=== PATIENT | male | born 1935 | race Caucasian/White ===

== ENCOUNTER → 2017-01-09 | Outpatient (CLI) | payer OTHER ==
[~2017-01-09] MED LIST: ACET-1311 PO; AMLO-114 PO; ATOR-22 PO; CHOL1000 PO; FAMO20TA11 PO; FLUT0.15; LISI-725 PO; METO1TAB69 PO; MIRA100T PO; MULT-506 PO
[2017-01-09 17:40] LABS: BLOOD UREA NITROGEN 34 mg/dl (7-18); GLUCOSE 98 mg/dl (70-99)
[2017-01-09 17:41] LABS: ALT/SGPT 28 U/L (12-78); BUN/CREATININE RATIO 30.5 (10-20); CALCIUM 9.4 mg/dl (8.5-10.1); CARBON DIOXIDE 29 mmol/L (21-32); CHLORIDE 106 mmol/L (98-107); CHOLESTEROL 139 mg/dl (0-200); POTASSIUM 4.3 mmol/L (3.5-5.1); SODIUM 142 mmol/L (136-145)
[2017-01-09 17:45] LABS: ALB/GLOB RATIO 1.2 (0.9-2); ALKALINE PHOSPHATASE 84 U/L (45-117); AST/SGOT 21 U/L (15-37); CHOLESTEROL/HDL RATIO 2.3; HDL CHOLESTEROL 60 mg/dl; LDL CHOLESTEROL CALCULATED 58 mg/dl; TRIGLYCERIDES 106 mg/dl (0-150); VERY LOW DENSITY LIPOPROT CALC 21 mg/dl
[2017-01-10 06:04] LABS: ESTIMATED AVERAGE GLUCOSE 120 mg/dl; HA1C FLAG Normal (Normal)
--- NOTE | 2017-01-14 08:34 | CODING QUERY MEDICAL NECESSITY ---
SUPPORTING DIAGNOSIS NEEDED A supporting diagnosis is required for the test/procedure performed on this patient in order for us to be reimbursed by the patient's insurance. Please provide a supporting diagnosis for the following test/procedure listed below next to the test name along with your signature. *If there is no additional diagnosis for this patient that would support the following test/procedure please document that below next to the test/procedure. Test(s)/Procedure(s) that require a supporting diagnosis: * GLYCATED HEMOGLOBIN DIAGNOSIS: * DOS: 01/09/17 Provider Signature: Date: Thank you Sharmaine Lazo Health Information Management Once completed, please kindly fax back to [phone] For questions please call [phone]
== END | disposition home or self-care (01) ==
LOC: C.LABPVFM 13:22
PROVIDERS: ATTEND Family Medicine
DX: I25.10 Atherosclerotic heart disease of native coronary artery without angina pectoris (principal); E11.9 Type 2 diabetes mellitus without complications

== ENCOUNTER → 2017-06-25 | Outpatient (CLI) | payer OTHER ==
[2017-06-25 18:03] LABS: BLOOD UREA NITROGEN 38 mg/dl (7-18); BUN/CREATININE RATIO 31.8 (10-20); CALCIUM 9.2 mg/dl (8.5-10.1); CARBON DIOXIDE 26 mmol/L (21-32); CHLORIDE 110 mmol/L (98-107); GLUCOSE 107 mg/dl (70-99); POTASSIUM 4.2 mmol/L (3.5-5.1); SODIUM 142 mmol/L (136-145)
[2017-06-26 06:10] LABS: ESTIMATED AVERAGE GLUCOSE 120 mg/dl; HA1C FLAG Normal (Normal)
== END | disposition home or self-care (01) ==
LOC: C.LABPVFM 14:52
PROVIDERS: ATTEND Family Medicine
DX: C61 Malignant neoplasm of prostate (principal); E11.9 Type 2 diabetes mellitus without complications; I10 Essential (primary) hypertension

== ENCOUNTER → 2018-01-12 | Outpatient (CLI) | payer OTHER ==
[~2018-01-12] MED LIST changes: +METO100T44 PO; -METO1TAB69 PO
== END | disposition home or self-care (01) ==
LOC: C.LABSPEC 17:30
PROVIDERS: ATTEND Urology
DX: R32 Unspecified urinary incontinence (principal); R35.0 Frequency of micturition

== ENCOUNTER 2018-01-30 19:19 | Inpatient (IN) | payer OTHER ==
[~2018-01-30] VITALS: Ht 180.3 cm; Wt 95.4 kg
[2018-01-30] MEDS ORDERED: SODIUM CHLORIDE 0.9% 1000ML 500 ML IV STA (20:21)
--- NOTE | 2018-01-30 20:56 | EMERGENCY ROOM VISIT NOTE ---
History Report prepared by Mihai: Yahaira Maharaj Under the Supervision of: Dr. David Briscoe M.D. First contact with patient: 20:16 Chief Complaint: DIARRHEA Stated Complaint: SEVERE RESIDENTIAL DIARRHEA Nursing Triage Summary: son states diarrhea for past 5 wks then it cleared up for 24hrs then it started again, botox precedure friday on bladder and diarrhea started back up on friday History of Present Illness The patient is an 82 year old male who presents to the Emergency Room with complaints of persistent diarrhea starting 5-6 weeks ago. He has been on Imodium , Bentyl, and Kaopectate to no significant relief. The patient's son discovered there was a problem with the water softener and his diarrhea improved after switching to bottled water. He then had a Botox procedure on the bladder and was started on antibiotics 5 days ago. He started having diarrhea again 3 days ago. He has had 4-5 episodes of diarrhea today. He has not noticed any blood in the diarrhea. He is having abdominal pain--cramping at times. He has felt weak and fatigued. He denies any fever, vomiting, nausea, chest pain, or SOB. Source of History: patient, family Onset: 5-6 weeks ago Position: abdomen Symptom Intensity: 4-5 times a day Quality: other (diarrhea) Timing: other (persistent) Associated Symptoms: + abdominal pain, + fatigue, + weakness, No fevers, No chest pain, No SOB, No nausea, No vomiting Review of Systems See HPI for pertinent positives & negatives. A total of 10 systems reviewed and were otherwise negative. Past Medical & Surgical Surgical Problems: (1) Hx of CABG Family History Noncontributory secondary to age. Social History Smoking Status: Never Smoker Marital Status: Occupation Status: retired Current/Historical Medications Scheduled Amlodipine (Norvasc), 10 MG PO HS Atorvastatin (Lipitor), 20 MG PO HS Bicalutamide (Casodex), 150 MG PO DAILY Cholecalciferol (Vitamin D3), 1 TAB PO QAM Famotidine (Pepcid), 2 TAB PO HS Folic Acid (Folic Acid), 1 TAB PO DAILY Lisinopril (Prinivil), 40 MG PO DAILY Metoprolol Succ (Toprol Xl) (Toprol-Xl ), 100 MG PO QAM Mirabegron (Myrbetriq Er), 50 MG PO DAILY Multivitamin (Multivitamin), 1 TAB PO QAM Nystatin (Nystatin), 1 APPLN TOP 2-3DAILY Triamcinolone Acet (Triamcinolone Acetonide), 1 APPLN TOP 2-3DAILY [Nasal [place]], 2 SPRAYS TANIA UD [Unknown Antibiotic], 1 TAB PO BID Scheduled PRN Acetaminophen (Tylenol), 650 MG PO HS PRN for Pain or Fever Allergies Coded Allergies: Ciprofloxacin (Verified Allergy, Unknown, CHEST PAIN, 09/11/16) Clavulanic Acid (Verified Allergy, Unknown, 0, 01/31/18) Iodine (Verified Allergy, Unknown, 0, 01/31/18) Quinolones (Verified Allergy, Unknown, CHEST PAIN, 09/11/16) Sulfa Drugs (Verified Allergy, Unknown, BREAKS OUT, 09/11/16) Terazosin (Verified Allergy, Unknown, UNKNOWN, 09/11/16) Physical Exam Vital Signs Date Time Temp Pulse Resp B/P (MAP) Pulse Ox O2 Delivery O2 Flow Rate FiO2 01/31/18 00:00 87 18 150/89 94 Room Air 01/30/18 22:35 80 18 163/93 98 Room Air 01/30/18 21:25 87 18 140/84 97 Room Air 01/30/18 21:22 97 Room Air 01/30/18 19:28 36.6 85 18 126/75 93 Room Air Physical Exam GENERAL: Patient is in no acute distress. HEENT: No acute trauma, normocephalic atraumatic, mucous membranes dry, no nasal congestion, no scleral icterus. NECK: No stridor, no adenopathy, no meningismus, trachea is midline. LUNGS: Clear to auscultation bilaterally, no wheeze, no rhonchi, breath sounds equal. HEART: Without murmurs gallops or rubs, regular rate and rhythm. ABDOMEN: Soft, nontender, bowel sounds positive and hyperactive, no hernias, no peritonitis. EXTREMITIES: No cyanosis or edema, full range of motion of all the joints without pain or difficulty, no signs for acute trauma. NEUROLOGIC: Oriented x 3, no acute motor or sensory deficits, no focal weakness. SKIN: No rash, no jaundice, no diaphoresis. Medical Decision & Procedures ER Provider Diagnostic Interpretation: Radiology results as stated below per my review and radiologist interpretation: ABD/PELVIS NO IV OR ORAL CONT CT DOSE: 1335.10 mGy.cm HISTORY: Pain ABD PAIN, POSSIBLE DIVERTIC/COLITS, NO CONTRAST TECHNIQUE: Multiaxial CT images of the abdomen and pelvis were performed without contrast. A dose lowering technique was utilized adhering to the principles of ALARA. COMPARISON STUDY: None. FINDINGS: Lung bases demonstrate a multinodular appearance. There are several nodules at the right base measuring 2 9 mm. Nodularity left base again is remarkable for several nodules measuring up to 9 mm. Liver is diffusely heterogeneous with what appears to be diffuse nodularity throughout all hepatic components. This is highly suggestive of metastatic disease. Gallbladder slightly distended. There is atelectatic change and ectasia of the abdominal aorta. Within limitations of an unenhanced scan there does not appear to be significant adenopathy. There is trace amount of fluid within a fat-containing left inguinal hernia. Bowel pattern is again nonobstructive. There are findings of scattered colonic diverticuli with no evidence of diverticulitis. The appendix is normal. Severe degenerative changes of all major osseous structures with no well-defined lytic process. IMPRESSION: 1. Diffusely heterogeneous and nodular liver suggesting diffuse metastatic disease. 2. Multiple basilar pulmonary nodules bilaterally suggesting pulmonary metastatic disease. 3. No additional acute abnormality of the abdomen or pelvis within limitations of a nonenhanced scan. The above report was generated using voice recognition software. It may contain grammatical, syntax or spelling errors. Electronically signed by: Ervin Benavides M.D. 01/30/2018 10:05 PM Dictated Date/Time: 01/30/2018 9:59 PM Laboratory Results Test 01/30/18 21:15 01/30/18 22:40 Prothrombin Time 12.6 SECONDS (9.0-12.0) Prothromb Time International Ratio 1.2 (0.9-1.1) Activated Partial Thromboplast Time 24.7 SECONDS (21.0-31.0) Partial Thromboplastin Ratio 1.0 Magnesium Level 2.0 mg/dl (1.8-2.4) Troponin I < 0.015 ng/ml (0-0.045) Pro-B-Type Natriuretic Peptide 90728 pg/ml (0-1800) Globulin 3.1 gm/dl (2.5-4.0) Albumin/Globulin Ratio 1.0 (0.9-2) Thyroid Stimulating Hormone (TSH) 2.440 uIu/ml (0.300-4.500) Urine Color DK YELLOW Urine Appearance CLOUDY (CLEAR) Urine pH 5.0 (4.5-7.5) Urine Specific [place] 1.023 (1.000-1.030) Urine Protein 1+ (NEG) Urine Glucose (UA) NEG (NEG) Urine Ketones TRACE (NEG) Urine Occult Blood NEG (NEG) Urine Nitrite NEG (NEG) Urine Bilirubin NEG (NEG) Urine Urobilinogen NEG (NEG) Urine Leukocyte Esterase MODERATE (NEG) Urine WBC (Auto) 10-30 /hpf (0-5) Urine RBC (Auto) 5-10 /hpf (0-4) Urine Hyaline Casts (Auto) 5-10 /lpf (0-5) Urine Epithelial Cells (Auto) 20-30 /lpf (0-5) Urine Bacteria (Auto) NEG (NEG) Urine Pathogenic Casts 1-5 GRANULAR CASTS /lpf (0) Urine Yeast (Auto) PRESENT (NONE PRSENT) Laboratory results reviewed by me. Medications Administered Medications (Trade) Dose Ordered Sig/Ena Route Start Time Stop Time Status Last Admin Dose Admin Sodium Chloride 500 ml @ 999 mls/hr Q31M STAT IV 01/30/18 20:21 01/30/18 20:51 DC 01/30/18 21:24 999 MLS/HR Sodium Chloride 500 ml @ 999 mls/hr Q31M STAT IV 01/30/18 22:00 01/30/18 22:30 DC 01/30/18 22:45 999 MLS/HR ECG Per My Interpretation Indication: weakness Rate (beats per minute): 84 Rhythm: normal sinus Findings: RBBB, no ectopy, other (no ST elevation, no PVC) Comparison ECG Date: 08-Aug-2014 Change: no significant change ED Course 2016: The patient was evaluated in room C1B. A complete history and physical exam was performed. 2020: Sodium Chloride 500 ml @ 999 mls/hr IV. 2199: Sodium Chloride 500 ml @ 999 mls/hr IV. 2214: Upon reexamination the patient is stable. I discussed results and treatment plan with the patient and his son. They verbalize agreement and understanding. The patient will be evaluated for further management. 2218: I discussed the patient's case with Dr. Thomas, [facility] hospitalist. The patient will be evaluated for further management. Medical Decision Differential diagnoses considered include colitis, diverticulitis, C diff, bacterial intestinal infection, viral intestinal infection, food borne illness, electrolyte imbalance, anemia infection, UTI. There is no leukocytosis or worrisome anemia. No significant electrolyte abnormality or kidney failure. There were a few scattered liver enzyme elevations. No worrisome coagulopathy. The patient appeared to be in a euthyroid state. EKG showed a sinus rhythm, no acute ischemia. Cardiac enzyme testing 1 is not consistent with acute cardiac injury. Urinalysis shows contamination, no obvious infection. Abdominal and pelvis CT does not show any bowel obstruction or colitis/diverticulitis. Metastatic disease in the liver and lung was suspected. The patient received IV saline, he has been resting comfortably. Given his weakness, given the findings on CT, given the persistent diarrhea, given that he lives alone, a hospital stay was felt warranted. Further workup is required. I spoke to the patient and case management. The on-call hospitalist was consulted. Of note, the patient has been ordered for a stool culture and stool C. difficile , he has not yet provided a sample. Medication Reconcilliation Current Medication List: was personally reviewed by me Blood Pressure Screening Patient's blood pressure: Elevated blood pressure Referred to hospitalist. Consults Time Called: 2216 Consulting Physician: Dr. Thomas [facility] hospitalist Returned Call: [phone] Discussed the patient's case. The patient will be evaluated for further management. Impression Primary Impression: Weakness Additional Impressions: Dehydration Diarrhea Metastatic disease Scribe Attestation The scribe's documentation has been prepared under my direction and personally reviewed by me in its entirety. I confirm that the note above accurately reflects all work, treatment, procedures, and medical decision making performed by me. Departure Information Dispostion Being Evaluated By Hospitalist Referrals Evrin Barbosa M.D. (PCP) Patient Instructions My [facility] Problem Qualifiers
[2018-01-30] MEDS ORDERED: BICA50TA2 PO (21:33)
[2018-01-30] MEDS ORDERED: NASAL SPRAY NAE (21:33)
[2018-01-30] MEDS ORDERED: NYSO15 TOP (21:33)
[2018-01-30] MEDS ORDERED: TRMCR515 TOP (21:33)
[2018-01-30] MEDS ORDERED: FOLI5CAP PO (21:33)
[2018-01-30] MEDS ORDERED: UNKNOWN ANTIBIOTIC PO (21:41)
[2018-01-30] MEDS ORDERED: LISI40TA PO (21:41)
[2018-01-30] MEDS ORDERED: MIRA1TAB3 PO (21:42)
[2018-01-30 21:43] LABS: BASO % 0.4 %; BASO ABS # 0.03 K/uL (0-0.2); EOS % 1.2 %; EOS ABS # 0.09 K/uL (0-0.5); HEMATOCRIT 34.9 % (42-52); HEMOGLOBIN 11.3 g/dL (14.0-18.0); IG# 0.02 K/uL (0.00-0.02); LYMPH % 6.9 %; LYMPH ABS # 0.54 K/uL (1.2-3.4); MEAN CELL VOLUME 97.2 fL (80-100); MEAN CORPUSCULAR HEMOGLOBIN 31.5 pg (25-34); MEAN CORPUSCULAR HGB CONC 32.4 g/dl (32-36); MEAN PLATELET VOLUME 11.1 fL (7.4-10.4); MONO % 12.1 %; MONO ABS # 0.94 K/uL (0.11-0.59); NEUT % 79.1 %; NEUT ABS # 6.16 K/uL (1.4-6.5); PLATELET COUNT 182 K/uL (130-400); RED CELL DISTRIBUTION WIDTH CV 14.2 % (11.5-14.5); WHITE BLOOD COUNT 7.78 K/uL (4.8-10.8)
[2018-01-30 21:53] LABS: INR 1.2 (0.9-1.1); PTT PATIENT 24.7 SECONDS (21.0-31.0)
[2018-01-30] MEDS ORDERED: SODIUM CHLORIDE 0.9% 500ML 500 ML IV STA (22:00)
[2018-01-30 22:02] LABS: ALBUMIN 3.1 gm/dl (3.4-5.0); ALT/SGPT 45 U/L (12-78); AST/SGOT 152 U/L (15-37); BLOOD UREA NITROGEN 21 mg/dl (7-18); CARBON DIOXIDE 24 mmol/L (21-32); CREATININE 1.37 mg/dl (0.60-1.40); GLUCOSE 158 mg/dl (70-99); POTASSIUM 3.6 mmol/L (3.5-5.1); SODIUM 142 mmol/L (136-145)
--- NOTE | 2018-01-30 22:07 | DIAGNOSTIC IMAGING REPORT ---
ABD/PELVIS NO IV OR ORAL CONT CT DOSE: 1335.10 mGy.cm HISTORY: Pain ABD PAIN, POSSIBLE DIVERTIC/COLITS, NO CONTRAST TECHNIQUE: Multiaxial CT images of the abdomen and pelvis were performed without contrast. A dose lowering technique was utilized adhering to the principles of ALARA. COMPARISON STUDY: None. FINDINGS: Lung bases demonstrate a multinodular appearance. There are several nodules at the right base measuring 2 9 mm. Nodularity left base again is remarkable for several nodules measuring up to 9 mm. Liver is diffusely heterogeneous with what appears to be diffuse nodularity throughout all hepatic components. This is highly suggestive of metastatic disease. Gallbladder slightly distended. There is atelectatic change and ectasia of the abdominal aorta. Within limitations of an unenhanced scan there does not appear to be significant adenopathy. There is trace amount of fluid within a fat-containing left inguinal hernia. Bowel pattern is again nonobstructive. There are findings of scattered colonic diverticuli with no evidence of diverticulitis. The appendix is normal. Severe degenerative changes of all major osseous structures with no well-defined lytic process. IMPRESSION: 1. Diffusely heterogeneous and nodular liver suggesting diffuse metastatic disease. 2. Multiple basilar pulmonary nodules bilaterally suggesting pulmonary metastatic disease. 3. No additional acute abnormality of the abdomen or pelvis within limitations of a nonenhanced scan. The above report was generated using voice recognition software. It may contain grammatical, syntax or spelling errors. Electronically signed by: Ervin Benavides M.D. 01/30/2018 10:05 PM Dictated Date/Time: 01/30/2018 9:59 PM
[2018-01-30 22:13] LABS: ALKALINE PHOSPHATASE 310 U/L (45-117); TOTAL PROTEIN 6.2 gm/dl (6.4-8.2)
[2018-01-31] VITALS (8 sets, daily range): BP systolic 117–151; BP diastolic 60–78; PULSE 75–85; TEMP 36.3–37; O2SAT 90–96; Ht 180.3 cm; Wt 95.4 kg
[2018-01-31] MEDS ORDERED: LACTATED RINGER'S 1000ML 1,000 ML IV ONE (00:30)
[2018-01-31] MEDS ORDERED: GLUCAGON FOR INJ 1 MG VIAL SQ PRN (00:30)
[2018-01-31] MEDS ORDERED: DEXTROSE 50% 50 ML SYR IV PRN (00:30)
[2018-01-31] MEDS ORDERED: PROCHLORPERAZINE INJ 5 MG in SYRINGE 4 ML IV PRN (00:30)
[2018-01-31] MEDS ORDERED: MoRPHine SULFATE 2 MG/ML CARP IV PRN (00:30)
[2018-01-31] MEDS ORDERED: GLUCOSE 40% GEL 15 GM TUBE PO PRN (00:30)
[2018-01-31] MEDS ORDERED: ACETAMINOPHEN 325 MG TAB PO PRN (00:30)
[2018-01-31] MEDS ORDERED: GLUCOSE 10 TABS/TUBE PO PRN (00:30)
[2018-01-31] MEDS ORDERED: OPTIRAY 320 IV PRN (00:45)
[2018-01-31] MEDS ORDERED: SODIUM CHLORIDE 0.65% NA SOLN 45 ML (OCEAN) STA (00:55)
[2018-01-31] MEDS ORDERED: INSULIN ASPART 100 UNITS/ML 3 ML PEN SC STA (00:55)
--- NOTE | 2018-01-31 01:29 | DIAGNOSTIC IMAGING REPORT ---
SINGLE VIEW CHEST CLINICAL HISTORY: Lower extremity edema. FINDINGS: An AP, portable, upright chest radiograph is compared to study dated 08/08/2014. The examination is degraded by portable technique and patient rotation. The patient is status post midline sternotomy. The heart is enlarged and there is atherosclerotic calcification of the thoracic aorta. There is pulmonary vascular congestion. Bibasilar atelectasis is observed. No airspace consolidation or large pleural effusion is identified. No pneumothorax is seen. The skeletal structures are osteopenic. The bony thorax is grossly intact. IMPRESSION: 1. Cardiomegaly with evidence of congestive failure. 2. No airspace consolidation or large pleural effusion is identified. Electronically signed by: David Sepulveda M.D. 01/31/2018 1:28 AM Dictated Date/Time: 01/31/2018 1:27 AM
[2018-01-31] MEDS ORDERED: DOXYCYCLINE HYCLATE 100 MG CAP PO ONE (03:24)
[2018-01-31] MEDS ORDERED: INSULIN ASPART 100 UNITS/ML 3 ML PEN SC ONE (03:44)
[2018-01-31] MEDS ORDERED: PNEUMOCOCCAL ADMINISTRATION CHARGE ONE (04:15)
[2018-01-31] MEDS ORDERED: IV FLUIDS COMPLETED PRN (04:15)
[2018-01-31] MEDS ORDERED: PNEUMOCOCCAL POLYSACCHARIDES 25 MCG/0.5 ML VIAL/SYR IM. ONE (04:15)
[2018-01-31] MEDS ORDERED: SODIUM CHLORIDE 0.65% NA SOLN 45 ML (OCEAN) ONE (05:04)
[2018-01-31] MEDS: ACETAMINOPHEN 325 MG TAB PO PRN (05:46)
[2018-01-31] MEDS ORDERED: INSULIN ASPART 100 UNITS/ML 3 ML PEN SC SCH ×2 (06:30→11:00)
--- NOTE | 2018-01-31 06:54 | DIAGNOSTIC IMAGING REPORT ---
ULTRASOUND BILATERAL LOWER EXTREMITY VENOUS CLINICAL HISTORY: Lower extremity edema. COMPARISON STUDY: Left lower extremity venous ultrasound dated 11/12/2010. TECHNIQUE: Real-time, grayscale, and color Doppler sonography of the deep veins of the right and left lower extremity was performed from the inguinal crease to the calf. Compression and augmentation were utilized. FINDINGS: There is no sonographic evidence of deep venous thrombosis identified in the right or left lower extremity. The common femoral, superficial femoral, and popliteal veins are patent and normally compressible bilaterally. The greater saphenous vein and the profunda femoris vein at the junction with the common femoral vein are clear in both legs. The visualized calf veins are patent bilaterally. IMPRESSION: There is no sonographic evidence of deep venous thrombosis identified in the right or left lower extremity. Electronically signed by: David Sepulveda M.D. 01/31/2018 6:53 AM Dictated Date/Time: 01/31/2018 6:52 AM
--- NOTE | 2018-01-31 06:58 | DIAGNOSTIC IMAGING REPORT ---
CT SCAN OF THE PARANASAL SINUSES CLINICAL HISTORY: Sinus congestion. COMPARISON STUDY: No priors. TECHNIQUE: High-resolution CT scan of the paranasal sinuses is performed. Images are reviewed in the axial, sagittal, and coronal planes. IV contrast was not administered for this examination. A dose lowering technique was utilized adhering to the principles of ALARA. The examination is degraded by suboptimal patient positioning within the CT gantry. CT DOSE: 1347.52 mGy.cm FINDINGS: Postoperative change: There is evidence of previous bilateral maxillary antrectomy with antrostomy formation as well as ethmoid sinus resection. Maxillary antra: Clear bilaterally. Anterior ethmoid sinuses: Trace mucosal thickening is seen on the left. Clear on the right. Posterior ethmoid sinuses: Clear. Sphenoid sinuses: A 1.7 cm retention cyst is noted on the left. Clear on the right. Frontal sinuses: Clear. Ostiomeatal complexes: The antrostomies are widely patent bilaterally. Frontoethmoidal and sphenoethmoidal recesses: Patent bilaterally. Carotid arteries: The carotid arteries are covered and without septal attachments. Ethmoid roofs: The ethmoid roofs are symmetric. Nasal turbinates: Normal in appearance. Nasal septum: There is mild rightward deviation of the bony nasal septum. Optic nerves: Covered. Orbits: The bony orbits are intact. Orbital contents are normal in appearance noting bilateral ocular lens implants. Calvarium: The skeletal structures are osteopenic. The imaged calvarium appears intact. Mastoid air cells: There is a small right mastoid effusion. The left mastoid air cells are well pneumatized. Brain parenchyma: Partially visualized brain parenchyma is within normal limits noting age-related involutional change. Dentition: Numerous dental caries are identified. IMPRESSION: 1. No significant paranasal sinus disease is identified. See above. 2. There are numerous dental caries. Follow-up with dentistry is recommended. Electronically signed by: David Sepulveda M.D. 01/31/2018 1:32 AM Dictated Date/Time: 01/31/2018 1:29 AM
[2018-01-31] MEDS ORDERED: AMLODIPINE BESYLATE 5 MG TAB PO SCH (08:00)
[2018-01-31] MEDS ORDERED: BICALUTAMIDE 50 MG TAB PO SCH (08:00)
[2018-01-31] MEDS: ENOXAPARIN 30 MG/0.3 ML SYR SQ SCH (08:18)
[2018-01-31] MEDS: LISINOPRIL 40 MG TAB PO SCH (08:19)
[2018-01-31] MEDS: MULTIVITAMIN TAB PO SCH (08:19)
[2018-01-31] MEDS: MIRABEGRON ER 25 MG TAB PO SCH (08:19)
[2018-01-31] MEDS: METOPROLOL SUCC 50MG EXT REL TAB PO SCH (08:19)
[2018-01-31] MEDS: SODIUM CHLORIDE 0.65% NA SOLN 45 ML (OCEAN) SCH ×3 (08:20→19:58)
[2018-01-31] MEDS: INSULIN ASPART 100 UNITS/ML 3 ML PEN SC SCH ×4 (08:21→19:57)
[2018-01-31] MEDS: BICALUTAMIDE 50 MG TAB PO SCH (08:27)
[2018-01-31 08:39] LABS: BASO % 0.4 %; BASO ABS # 0.03 K/uL (0-0.2); EOS % 1.6 %; EOS ABS # 0.13 K/uL (0-0.5); HEMATOCRIT 35.1 % (42-52); HEMOGLOBIN 11.6 g/dL (14.0-18.0); IG# 0.02 K/uL (0.00-0.02); LYMPH % 10.6 %; LYMPH ABS # 0.86 K/uL (1.2-3.4); MEAN PLATELET VOLUME 11.1 fL (7.4-10.4); MONO % 9.9 %; MONO ABS # 0.81 K/uL (0.11-0.59); NEUT % 77.3 %; PLATELET COUNT 175 K/uL (130-400); RED CELL DISTRIBUTION WIDTH CV 14.3 % (11.5-14.5); RED CELL DISTRIBUTION WIDTH SD 49.8 fL (36.4-46.3); RETIC COUNT % 1.2 % (0.5-2.0); WHITE BLOOD COUNT 8.15 K/uL (4.8-10.8)
[2018-01-31 09:09] LABS: CREATININE 1.01 mg/dl (0.60-1.40); POTASSIUM 3.7 mmol/L (3.5-5.1)
--- NOTE | 2018-01-31 09:12 | HISTORY & PHYSICAL EXAMINATION ---
DATE OF ADMISSION: 01/31/2018 PRIMARY CARE DOCTOR: Dr. Barbosa. The patient seen on 01/31/2018. CHIEF COMPLAINT: Diarrhea, weakness. HISTORY OF PRESENT ILLNESS: History obtained from the patient, son, and records. Medical history significant for CAD status post CABG/stenting, history of TIA, history of hypertonic bladder, hypertension, chronic anemia (baseline hemoglobin 13), hypertension, DM2, diet controlled, prostate cancer on Casodex, past tobacco abuse. Recent confinement, last 07/2014 for chest pain. Negative dobutamine stress test. Last month, patient had diarrhea symptoms. Patient seen by [facility] outpatient. Stool workup unremarkable. Symptoms improved with Imodium. Colonoscopy to rule out microscopic colitis contemplated if without improvement as per outpatient GI notes. Patient seen [place] [facility] [place] [place] for Botox injection for hypertonic bladder last on 01/26/2018. Patient received some antibiotics before and after procedure. Increased loose stools, nonbloody, some abdominal cramping, some nausea, no emesis, poor appetite, generalized weakness. Unquantified weight loss over the last several months. No chest pain, no shortness of breath. Both legs noted to be swollen the last few weeks. Patient brought to the Emergency Room. MEDICAL HISTORY: As above. Colonoscopy about 15 years ago at [facility]. Patient cannot recall findings. Increasing PSA noted for the last 3 years. Last one from 06/2017.was 19.8 Persistent sinus congestion, decreased hearing, ear fullness, especially on the right despite recent antibiotic Rx for PCP. Outpatient ENT consultation contemplated if still persistent as per discussion with PCP as per patient's family. SURGERIES: He has had urologic procedures, CABG, knee surgery, tonsillectomy, adenoidectomy, nasal septal repair, and endoscopic sinus surgery. HOME MEDICATIONS: Include amlodipine, atorvastatin, dicyclomine, folic acid, lisinopril, metoprolol, Myrbetriq, multivitamins ALLERGIES: ALLERGIC TO CIPRO, CLAVULANIC ACID, SULFA, LOSARTAN, DETROL, HYTRIN, ROFECOXIB. FAMILY HISTORY: Heart disease. PERSONAL AND SOCIAL HISTORY: Past tobacco abuse. No chronic intake of alcoholic beverages. Retired school speech therapist. Lives alone. REVIEW OF SYSTEMS: As per HPI. All 10 systems reviewed, all others negative. PHYSICAL EXAMINATION: VITAL SIGNS: Blood pressure noted to be 140/84, pulse rate 87, RR 18, temperature 36.6, sats 90 on room air. GENERAL: Noted to be comfortable, no acute distress, slightly hard of hearing. SKIN: Pallor, warm. HEENT: Pale palpebral conjunctivae. No ptosis. Dry mucosa. TM retraction bilateral, retained cerumen, no obvious perforation NECK: Supple, nontender. CHEST: Decreased effort. No tenderness. Healed incisional scar. HEART: Regular rate, rhythm, no murmur. ABDOMEN: Some distention, nontender. RECTAL: Intact sphincter, yellow stool, heme negative. EXTREMITIES: Bilateral lower extremity edema, no tenderness. No other gross deformities. NEUROLOGIC: Coherent. No gross focality except for mild hearing impairment. Gait and stance not assessed. LABORATORY DATA: Hemoglobin 11.3, hematocrit 34.1, white cell count 7.7, platelets 182. Sodium noted to be 142, potassium 6, chloride 110, CO2 24, BUN 21, creatinine 1.37, glucose 158, hemoglobin A1c on 12/[address] abdomen and pelvis showed diffuse heterogenous nodules liver possible diffuse metastatic disease, multiple bibasilar pulmonary nodules suggestive of multiple pulmonary metastatic disease. ASSESSMENT AND PLAN: 1. Diarrhea, rule out Clostridium difficile. Patient is not toxic. Recent antibiotic Rx post Botox injection for hypertonic bladder 2. Multiple lung/liver masses, probable metastatic disease Possible progression of prostate cancer ongoing Casodex therapy given increasing outpatient PSA levels. May need to rule out other primary sites. 3. Anemia Decreasing hemoglobin levels over the last few years. 4. CAD status post CABG, stenting as per records 5. HTN, slightly elevated 6. past tobacco abuse. 7. DM2, diet controlled, well controlled as of recent outpatient HgA1c. 8. Bilateral LE swelling rule out DVT 9. Cough symptoms productive of yellow sputum/R ear fullness secondary to persistent sinus infection Patient not septic. ro anatomic sinonasal pathology ro pulmonary pathology Observation. GMF Stool C. diff supportive management for viral gastroenteritis if stool C. diff negative. followup PSA Inpatient Oncology consultation regarding metastastic disease workup/management as per family request. CT sinuses RE persistent sinus infection, outpatient ENT eval Chest x-ray RE cough, leg swelling Anemia workup LE venous Dopplers rule out DVT ISS, BG goal 140-180. PT, OT eval. DVT prophylaxis, Lovenox subQ. Full code. Patient's son requesting for updates from providers. Mr. Braydon Malone, contact number [phone]. [facility]
[2018-01-31 09:13] LABS: TOTAL PROTEIN 6.2 gm/dl (6.4-8.2)
[2018-01-31] MEDS ORDERED: NURSING DECISION MEDICATION ORDER SCH ×2 (11:00→12:00)
[2018-01-31] MEDS ORDERED: MICONAZOLE NITRATE POWDER 43 GM ONE (11:11)
[2018-01-31] MEDS ORDERED: MICONAZOLE NITRATE POWDER 43 GM EXT PRN (12:15)
--- NOTE | 2018-01-31 17:10 | ECHOCARDIOGRAM REPORT ---
*NOTICE TO RECEIVING CONSTITUTION PARTY AGENCY This information is strictly Confidential and protected under [place] law. [place] law prohibits you from making any further disclosure of this information unless further disclosure is expressly permitted by the written consent of the person to whom it pertains or is authorized by law. A general authorization for the release of medical or other information is not sufficient for this purpose. Hospital accepts no responsibility if the information is made available to any other person, INCLUDING THE PATIENT. Interpretation Summary * Name: Cali CASTAÑEDA Study Date: 01/31/2018 07:29 AM BP: 148/75 mmHg * Patient Location: .[id number]\S\E422\S\1 HR: 88 * : 1935 (M/d/yyyy) Gender: Male Height: 71 in * Age: 82 yrs Ethnicity: CA Weight: 198 lb * Ordering Physician: John Thomas * Referring Physician: Self, Referred * Performed By: John Long RDCS * * Reason For Study: CHF * BSA: 2.1 m2 * The study was technically adequate. * Compared to prior study, changes are noted. * -- Conclusions -- * Ejection Fraction = 55-60%. * The base posterior wall appears thinned and hypokinetic. * The base inferior wall is mildly hypokinetic. * The left atrium is moderately dilated. * Diastolic dysfunction, Grade II (pseudonormalization pattern). * Aortic valve sclerosis moderate, without significant aortic valvular stenosis. * There is mild mitral regurgitation. * There is mild tricuspid regurgitation. * The estimated systolic pulmonary arterial pressure is 42 mmHg. * Dilated inferior vena cava with reduced collapsability with sniff indicates an elevated right atrial pressure of 15 mmHg Procedure Details * A complete two-dimensional transthoracic echocardiogram was performed (2D, M-mode, Doppler and color flow Doppler). * The study was technically adequate. Left Ventricle * The left ventricle is normal in size. * There is normal left ventricular wall thickness. * Left ventricular systolic function is normal. * Ejection Fraction = 55-60%. * The base posterior wall appears thinned and hypokinetic. The base inferior wall is mildly hypokinetic. Right Ventricle * The right ventricle is not well visualized. * The right ventricle is grossly normal size. * The right ventricular systolic function is normal as assessed by tricuspid annular plane systolic excursion (TAPSE) (normal >1.5 cm). Atria * The left atrium is moderately dilated. * Right atrial size is normal. * There is no evidence of atrial septal defect, but resolution does not allow assessment for a patent foramen ovale. Mitral Valve * There is moderate mitral annular calcification. * There is no mitral valve stenosis. * There is mild mitral regurgitation. Tricuspid Valve * The tricuspid valve is normal. * There is no tricuspid stenosis. * There is mild tricuspid regurgitation. * The estimated systolic pulmonary arterial pressure is 42 mmHg. Aortic Valve * The aortic valve is trileaflet. * Aortic valve sclerosis moderate, without significant aortic valvular stenosis. * Aortic stenosis is absent. * There is no significant aortic regurgitation. Pulmonic Valve * The pulmonary valve is not well seen, but the Doppler examination is normal without significant regurgitation or stenosis. Great Vessels * The aortic root is normal size. Pericardium/Pleural * There is no pericardial effusion. Great Vessels * Dilated inferior vena cava with reduced collapsability with sniff indicates an elevated right atrial pressure of 15 mmHg Left Ventricular Diastolic Function * Diastolic dysfunction, Grade II (pseudonormalization pattern). MMode 2D Measurements and Calculations IVSd 1.0 cm IVSs 1.6 cm LVIDd 5.5 cm LVIDs 4.0 cm LVPWd 0.73 cm LVPWs 1.1 cm IVS/LVPW 1.4 FS 27.1 % EDV(Teich) 148.7 ml ESV(Teich) 71.1 ml EF(Teich) 52.2 % EDV(cubed) 168.3 ml ESV(cubed) 65.2 ml EF(cubed) 61.3 % % IVS thick 48.1 % % LVPW thick 48.0 % LV mass(C)d 183.7 grams LV mass(C)dI 87.5 grams/m\S\2 LV mass(C)s 191.3 grams LV mass(C)sI 91.1 grams/m\S\2 SV(Teich) 77.7 ml SI(Teich) 37.0 ml/m\S\2 SV(cubed) 103.1 ml SI(cubed) 49.1 ml/m\S\2 EPSS 1.2 cm Ao root diam 3.6 cm Ao root area 10.3 cm\S\2 ACS 1.1 cm LA dimension 4.9 cm asc Aorta Diam 3.9 cm LA/Ao 1.3 LVOT diam 2.1 cm LVOT area 3.4 cm\S\2 LVAd ap4 27.6 cm\S\2 LVLd ap4 8.2 cm EDV(MOD-sp4) 77.0 ml EDV(sp4-el) 78.7 ml LVAs ap4 16.1 cm\S\2 LVLs ap4 6.8 cm ESV(MOD-sp4) 32.3 ml ESV(sp4-el) 32.7 ml EF(MOD-sp4) 58.0 % EF(sp4-el) 58.5 % LVAd ap2 32.9 cm\S\2 LVLd ap2 9.3 cm EDV(MOD-sp2) 97.6 ml EDV(sp2-el) 99.1 ml LVAs ap2 19.2 cm\S\2 LVLs ap2 7.8 cm ESV(MOD-sp2) 43.8 ml ESV(sp2-el) 40.0 ml EF(MOD-sp2) 55.1 % EF(sp2-el) 59.7 % LVLd %diff 11.5 % EDV(MOD-bp) 90.8 ml LVLs %diff 13.4 % ESV(MOD-bp) 38.3 ml EF(MOD-bp) 57.9 % SV(MOD-sp4) 44.7 ml SI(MOD-sp4) 21.3 ml/m\S\2 SV(MOD-sp2) 53.8 ml SI(MOD-sp2) 25.6 ml/m\S\2 SV(MOD-bp) 52.5 ml SI(MOD-bp) 25.0 ml/m\S\2 SV(sp4-el) 46.0 ml SI(sp4-el) 21.9 ml/m\S\2 SV(sp2-el) 59.1 ml SI(sp2-el) 28.2 ml/m\S\2 Doppler Measurements and Calculations MV E max leah 115.5 cm/sec MV A max leah 102.8 cm/sec MV E/A 1.1 MV dec time 0.21 sec Ao V2 max 127.2 cm/sec Ao max PG 6.5 mmHg Ao max PG (full) 3.4 mmHg AKASH(V,A) 2.3 cm\S\2 AKASH(V,D) 2.3 cm\S\2 LV V1 max PG 3.1 mmHg LV V1 max 87.9 cm/sec PA V2 max 83.0 cm/sec PA max PG 2.8 mmHg PA acc slope 477.9 cm/sec\S\2 PA acc time 0.13 sec TR max leah 264.0 cm/sec PA pr(Accel) 18.6 mmHg
[2018-01-31] MEDS: LOPERAMIDE HCL 2 MG CAP PO PRN (19:58)
[2018-01-31] MEDS: AMLODIPINE BESYLATE 5 MG TAB PO SCH (19:59)
[2018-01-31] MEDS: FAMOTIDINE 20 MG TAB PO SCH (20:00)
[2018-01-31] MEDS ORDERED: DOXYCYCLINE HYCLATE 100 MG CAP PO SCH (20:00)
--- NOTE | 2018-01-31 20:50 | Progress Note ---
Medicine Progress Note Date & Time of Visit: Jan 31, 2018 at 20:43. Subjective seen resting in bedside chair, comfortable had 1 loose BM last night no abdominal pain, nausea denies cough, chest pain, dyspnea, abdominal pain has some nasal drainage- yellow, thick no other symptoms Objective Last 8 Hrs Date Time Temp Pulse Resp B/P (MAP) Pulse Ox O2 Delivery O2 Flow Rate FiO2 01/31/18 19:51 36.4 84 19 151/77 (101) 92 Room Air 01/31/18 19:23 36.6 01/31/18 17:52 36.3 75 19 136/75 (95) 96 Room Air 01/31/18 16:00 93 Room Air Physical Exam: General- oriented x 3, not in distress, speaks in sentences with no effort Head- atraumatic Eyes- anicteric ENT- oropharynx clear Neck- supple, no JVD, no adenopathy, no thyromegaly Lungs- clear to auscultation bilaterally Heart- regular rhythm; no murmur, normal rate Abdomen- normal bowel sounds, soft, nontender Extremities-grade 1 lower leg edema, no calf tenderness; peripheral pulses intact Neuro- alert, oriented x 3; no gross focal deficits Skin- warm & dry Laboratory Results: Last 24 Hours Test 01/30/18 21:15 01/30/18 22:40 01/31/18 00:42 01/31/18 08:14 White Blood Count 7.78 K/uL Red Blood Count 3.59 M/uL Hemoglobin 11.3 g/dL Hematocrit 34.9 % Mean Corpuscular Volume 97.2 fL Mean Corpuscular Hemoglobin 31.5 pg Mean Corpuscular Hemoglobin Concent 32.4 g/dl Platelet Count 182 K/uL Mean Platelet Volume 11.1 fL Neutrophils (%) (Auto) 79.1 % Lymphocytes (%) (Auto) 6.9 % Monocytes (%) (Auto) 12.1 % Eosinophils (%) (Auto) 1.2 % Basophils (%) (Auto) 0.4 % Neutrophils # (Auto) 6.16 K/uL Lymphocytes # (Auto) 0.54 K/uL Monocytes # (Auto) 0.94 K/uL Eosinophils # (Auto) 0.09 K/uL Basophils # (Auto) 0.03 K/uL RDW Standard Deviation 50.0 fL RDW Coefficient of Variation 14.2 % Immature Granulocyte % (Auto) 0.3 % Immature Granulocyte # (Auto) 0.02 K/uL Prothrombin Time 12.6 SECONDS Prothromb Time International Ratio 1.2 Activated Partial Thromboplast Time 24.7 SECONDS Partial Thromboplastin Ratio 1.0 Sodium Level 142 mmol/L Potassium Level 3.6 mmol/L Chloride Level 110 mmol/L Carbon Dioxide Level 24 mmol/L Anion Gap 8.0 mmol/L Blood Urea Nitrogen 21 mg/dl Creatinine 1.37 mg/dl Est Creatinine Clear Calc Drug Dose 42.7 ml/min Estimated GFR () 54.5 Estimated GFR (Non- 47.0 BUN/Creatinine Ratio 15.5 Random Glucose 158 mg/dl Calcium Level 9.0 mg/dl Magnesium Level 2.0 mg/dl Total Bilirubin 0.8 mg/dl Aspartate Amino Transf (AST/SGOT) 152 U/L Alanine Aminotransferase (ALT/SGPT) 45 U/L Alkaline Phosphatase 310 U/L Troponin I < 0.015 ng/ml Pro-B-Type Natriuretic Peptide 11758 pg/ml Total Protein 6.2 gm/dl Albumin 3.1 gm/dl Globulin 3.1 gm/dl Albumin/Globulin Ratio 1.0 Thyroid Stimulating Hormone (TSH) 2.440 uIu/ml Urine Color DK YELLOW Urine Appearance CLOUDY Urine pH 5.0 Urine Specific Wilcox 1.023 Urine Protein 1+ Urine Glucose (UA) NEG Urine Ketones TRACE Urine Occult Blood NEG Urine Nitrite NEG Urine Bilirubin NEG Urine Urobilinogen NEG Urine Leukocyte Esterase MODERATE Urine WBC (Auto) 10-30 /hpf Urine RBC (Auto) 5-10 /hpf Urine Hyaline Casts (Auto) 5-10 /lpf Urine Epithelial Cells (Auto) 20-30 /lpf Urine Bacteria (Auto) NEG Urine Pathogenic Casts 1-5 GRANULAR CASTS /lpf Urine Yeast (Auto) PRESENT Bedside Glucose 131 mg/dl 93 mg/dl Test 01/31/18 08:16 01/31/18 11:41 01/31/18 16:47 01/31/18 19:43 White Blood Count 8.15 K/uL Red Blood Count 3.62 M/uL Hemoglobin 11.6 g/dL Hematocrit 35.1 % Mean Corpuscular Volume 97.0 fL Mean Corpuscular Hemoglobin 32.0 pg Mean Corpuscular Hemoglobin Concent 33.0 g/dl Platelet Count 175 K/uL Mean Platelet Volume 11.1 fL Neutrophils (%) (Auto) 77.3 % Lymphocytes (%) (Auto) 10.6 % Monocytes (%) (Auto) 9.9 % Eosinophils (%) (Auto) 1.6 % Basophils (%) (Auto) 0.4 % Neutrophils # (Auto) 6.30 K/uL Lymphocytes # (Auto) 0.86 K/uL Monocytes # (Auto) 0.81 K/uL Eosinophils # (Auto) 0.13 K/uL Basophils # (Auto) 0.03 K/uL RDW Standard Deviation 49.8 fL RDW Coefficient of Variation 14.3 % Immature Granulocyte % (Auto) 0.2 % Immature Granulocyte # (Auto) 0.02 K/uL Absolute Reticulocyte Count 0.04 10^6/uL Percent Reticulocyte Count 1.2 % Sodium Level 142 mmol/L Potassium Level 3.7 mmol/L Chloride Level 111 mmol/L Carbon Dioxide Level 21 mmol/L Anion Gap 10.0 mmol/L Blood Urea Nitrogen 19 mg/dl Creatinine 1.01 mg/dl Est Creatinine Clear Calc Drug Dose 58.0 ml/min Estimated GFR () 78.8 Estimated GFR (Non- 68.0 BUN/Creatinine Ratio 19.0 Random Glucose 94 mg/dl Calcium Level 9.0 mg/dl Iron Level 34 mcg/dl Total Iron Binding Capacity 259 mcg/dl Transferrin 200 mg/dl Transferrin % Saturation 0 % Ferritin 269.0 ng/ml Total Bilirubin 0.8 mg/dl Direct Bilirubin 0.4 mg/dl Aspartate Amino Transf (AST/SGOT) 151 U/L Alanine Aminotransferase (ALT/SGPT) 43 U/L Alkaline Phosphatase 330 U/L Total Protein 6.2 gm/dl Albumin 3.0 gm/dl Prostate Specific Antigen 0.042 ng/ml Vitamin B12 Level 1528 pg/mL Folate 19.41 ng/mL Bedside Glucose 104 mg/dl 109 mg/dl 140 mg/dl Date/Time Source Procedure Growth Status 01/31/18 11:22 Stool Shiga Toxin Test Pending Received 01/31/18 11:22 Stool Stool Culture Pending Received 01/31/18 11:22 Stool C.difficile Toxin B Gene (PCR) - Final No C. difficile toxin B gene detected Complete 01/30/18 22:40 Urine , Clean Catch Urine Culture Pending Received Assessment & Plan ASSESSMENT AND PLAN: 1. Diarrhea, rule out Clostridium difficile. 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 Multiple lung/liver masses, probable metastatic disease Possible progression of prostate cancer ongoing Casodex therapy given increasing outpatient PSA levels. May need to rule out other primary sites. -- Onco consulted 3. Anemia Decreasing hemoglobin levels over the last few years. -- monitor 4. CAD status post CABG, stenting as per records -- (+) leg edema check Echo -- Doppler US: no DVT 5. HTN, slightly elevated 6. past tobacco abuse. 7. DM2, diet controlled, well controlled as of recent outpatient HgA1c. 8. Cough symptoms productive of yellow sputum/R ear fullness secondary to persistent sinus infection -- CT sinuses noted Doxy PO started monitor response PT, OT eval. DVT prophylaxis, Lovenox subQ. Full code. Patient's son requesting for updates from providers. Mr. Braydon Malone, contact number [phone]. Current Inpatient Medications: Current Inpatient Medications Medications (Trade) Dose Ordered Sig/Ena Route Start Time Stop Time Status Last Admin Dose Admin Ioversol (Optiray 320) 100 ml UD PRN IV 01/31/18 00:45 02/04/18 00:44 Enoxaparin Sodium (Lovenox Inj) 30 mg Q24H SQ 01/31/18 08:00 03/02/18 07:59 01/31/18 08:18 30 MG Acetaminophen (Tylenol Tab) 650 mg Q4H PRN PO 01/31/18 00:30 03/02/18 00:29 01/31/18 05:46 650 MG Glucose (Glucose 40% Gel) 15-30 GRAMS 15 GRAMS... UD PRN PO 01/31/18 00:30 03/02/18 00:29 Glucose (Glucose Chew Tab) 4-8 Tablets 4 Tabl... UD PRN PO 01/31/18 00:30 03/02/18 00:29 Dextrose (Dextrose 50% 50ML Syringe) 25-50ML OF 50% DW IV FOR... UD PRN IV 01/31/18 00:30 03/02/18 00:29 Glucagon (Glucagon Inj) 1 mg UD PRN SQ 4/21/18 00:30 03/02/18 00:29 Prochlorperazine Edisylate 5 mg/ Syringe 5 ml @ 5 mls/min Q6H PRN IV 01/31/18 00:30 03/02/18 00:29 Tramadol HCl (Ultram Tab) not relieved by tylenol @ Q6H PRN PO 01/31/18 00:30 03/02/18 00:29 Sodium Chloride ([place] Nasal Bassett) 2 sprays TID NA 01/31/18 08:00 03/02/18 08:59 01/31/18 19:58 2 SPRAYS Morphine Sulfate (MoRPHine SULFATE INJ) 2 mg Q3H PRN IV 01/31/18 00:30 02/14/18 00:29 Acetaminophen (Tylenol Tab) 650 mg HS PRN PO 01/31/18 00:30 03/02/18 00:29 Famotidine (Pepcid Tab) 40 mg HS PO 01/31/18 21:00 03/02/18 20:59 01/31/18 20:00 40 MG Lisinopril (Zestril Tab) 40 mg DAILY PO 01/31/18 08:00 03/02/18 08:59 01/31/18 08:19 40 MG Metoprolol Succinate (Toprol Xl Tab) 100 mg QAM PO 01/31/18 08:00 03/02/18 08:59 01/31/18 08:19 100 MG Mirabegron (Myrbetriq Er) 50 mg DAILY PO 01/31/18 08:00 03/02/18 08:59 01/31/18 08:19 50 MG Multivitamins (Multivitamin Tab) 1 tab QAM PO 01/31/18 08:00 03/02/18 08:59 01/31/18 08:19 1 TAB Bicalutamide (Casodex Tab) 50 mg DAILY PO 01/31/18 08:00 03/02/18 07:59 01/31/18 08:27 50 MG Doxycycline Hyclate (Vibramycin Cap) 100 mg BID PO 01/31/18 20:00 02/10/18 19:59 01/31/18 19:59 100 MG Miscellaneous (Iv Fluids Completed) 1 ea PRN PRN N/A 01/31/18 04:15 01/31/19 04:14 Insulin Aspart (novoLOG ASPART) SLIDING SCALE If C... ACHS SC 01/31/18 06:30 03/02/18 06:29 Amlodipine Besylate (Norvasc Tab) 10 mg HS PO 01/31/18 21:00 03/02/18 20:59 01/31/18 19:59 10 MG Miconazole Nitrate (Desenex Powder) 1 appln PRN PRN EXT 01/31/18 12:15 03/02/18 12:14 Loperamide HCl (Imodium Cap) 2 mg UD PRN PO 01/31/18 19:45 03/02/18 19:44 01/31/18 19:58 2 MG
[2018-01-31] MEDS ORDERED: ATORVASTATIN 20 MG TAB PO SCH (21:00)
[2018-01-31] MEDS ORDERED: LOPERAMIDE HCL 2 MG CAP PO PRN (21:00)
[2018-02-01] MEDS: ACETAMINOPHEN 325 MG TAB PO PRN (03:39)
[2018-02-01 05:13] VITALS: BP 130/66; PULSE 84; TEMP 36.7; O2SAT 91
[2018-02-01 07:37] VITALS: BP 132/71; PULSE 85; TEMP 36.6; O2SAT 92
[2018-02-01 07:43] LABS: BASO % 0.5 %; BASO ABS # 0.04 K/uL (0-0.2); EOS % 1.6 %; EOS ABS # 0.12 K/uL (0-0.5); HEMATOCRIT 34.4 % (42-52); HEMOGLOBIN 11.1 g/dL (14.0-18.0); IG# 0.02 K/uL (0.00-0.02); LYMPH % 11.7 %; LYMPH ABS # 0.88 K/uL (1.2-3.4); MEAN CELL VOLUME 97.5 fL (80-100); MEAN CORPUSCULAR HEMOGLOBIN 31.4 pg (25-34); MEAN CORPUSCULAR HGB CONC 32.3 g/dl (32-36); MEAN PLATELET VOLUME 11.3 fL (7.4-10.4); MONO % 10.8 %; MONO ABS # 0.81 K/uL (0.11-0.59); NEUT % 75.1 %; NEUT ABS # 5.63 K/uL (1.4-6.5); PLATELET COUNT 170 K/uL (130-400); RED CELL DISTRIBUTION WIDTH CV 14.4 % (11.5-14.5); RED CELL DISTRIBUTION WIDTH SD 50.6 fL (36.4-46.3)
[2018-02-01] MEDS: INSULIN ASPART 100 UNITS/ML 3 ML PEN SC SCH ×4 (08:52→20:18)
[2018-02-01] MEDS: METOPROLOL SUCC 50MG EXT REL TAB PO SCH (08:53)
[2018-02-01] MEDS: LISINOPRIL 40 MG TAB PO SCH (08:53)
[2018-02-01] MEDS: MULTIVITAMIN TAB PO SCH (08:53)
[2018-02-01] MEDS: ENOXAPARIN 30 MG/0.3 ML SYR SQ SCH (08:54)
[2018-02-01] MEDS: SODIUM CHLORIDE 0.65% NA SOLN 45 ML (OCEAN) SCH ×3 (08:54→20:21)
[2018-02-01] MEDS: MIRABEGRON ER 25 MG TAB PO SCH (08:54)
[2018-02-01] MEDS: BICALUTAMIDE 50 MG TAB PO SCH (09:09)
[2018-02-01] MEDS: CEFTRIAXONE SOD INJ 1 GM in DEXTROSE 5% ADD-VANTAGE 50ML 50 ML IV SCH (09:10)
[2018-02-01 11:24] VITALS: BP 146/75; PULSE 76; TEMP 36.4; O2SAT 94
--- NOTE | 2018-02-01 12:55 | GASTROINTESTINAL CONSULTATION ---
DATE OF CONSULTATION: 02/01/2018 RACE: . ATTENDING PHYSICIAN: Dr. Lopez. CONSULTING PHYSICIAN: Dr. Durand. REASON FOR CONSULTATION: Diarrhea. HISTORY OF PRESENT ILLNESS: Mr. Malone is an 82-year-old male who presented to the Department of Emergency Medicine on 01/30/2018 with complaints of long-term diarrhea. He stated that he was having diarrhea for the past 5 weeks. He recently had received antibiotic therapy for an outpatient procedure and continued to have diarrhea. He stated that the diarrhea had started prior to this though it had resolved slightly. However, when he received the antibiotics it worsened. He was scheduled for an outpatient colonoscopy in February and states that he has not had a colonoscopy in approximately 10 years. I do not have these records though he states that it was performed in [facility]. He has been on Imodium therapy while hospitalized. At the time that I saw him today, he states that he has only had 1 bowel movement in the last 24 hours, though he stated it was liquid in nature. He denies any blood in his stools. C. diff testing is thus far been negative as well as stool cultures. He states that he has had some left lower quadrant abdominal pain which he describes as crampy in nature, occurring intermittently 2-3 times per day lasting half an hour and usually is alleviated with the bowel movement. He states the last time he developed pain was early this morning. He states he did try to go to the bathroom earlier today though only expelled gas. He denies any hematemesis, nausea, vomiting, fevers, chills, jaundice, acholic stools, dark urine, or pruritus and has no further complaints. PAST MEDICAL HISTORY: Significant for prostate CA with metastatic disease, coronary artery disease, hypertension, chronic anemia, type 2 diabetes, TIA, hypertonic bladder status post Botox therapy, history of tobacco abuse. PAST SURGICAL HISTORY: Multiple urologic procedures secondary to prostate CA, CABG, knee surgery, tonsillectomy, adenoidectomy, nasal septal repair, sinus surgery. ALLERGIES: TO CIPRO, CLAVULANIC ACID, SULFA, LOSARTAN, DETROL, HYTRIN, ROFECOXIB. MEDICATIONS: His medications at present include ceftriaxone 1 g IV q. 24 hours, Pepcid 40 mg p.o. at bedtime, Norvasc 10 mg p.o. at bedtime, Imodium 2 mg by mouth as directed p.r.n. diarrhea, Desenex 1 application externally as needed, Lovenox 30 mg subQ q. 24 hours, Zestril 40 mg daily, Toprol-XL 100 mg p.o. q.a.m., Mirabegron 50 mg p.o. daily, multivitamin 1 tab p.o. q.a.m., Casodex 50 mg p.o. daily, sliding scale insulin, Tylenol 650 mg p.o. q. 4 p.r.n. pain or fever, Phenergan 5 mg IV q. 6 p.r.n. nausea, vomiting, morphine 2 mg IV q. 3 p.r.n. pain, Tylenol 650 mg p.o. at bedtime p.r.n. pain or fever. SOCIAL HISTORY: He is a retired high school librarian, he lives alone. He denies any alcohol or illicit drug use. He does have a history of tobacco abuse in the past. FAMILY HISTORY: Negative for GI malignancy or inflammatory bowel disease. REVIEW OF SYSTEMS: Negative. Ten system reviewed other than pertinent positives listed in the HPI. PHYSICAL EXAMINATION: VITAL SIGNS: Temp 36.6, pulse 85, respirations 16, blood pressure 132/71, pulse ox 92% on room air. GENERAL: He is awake, cooperative, chronic ill appearing, in no acute distress. HEAD: Normocephalic, atraumatic. EYES: Pupils equal, round. Extraocular muscles are intact. ENT: External evaluation of ears and nose are normal. Oropharynx is clear. NECK: Soft, supple. No JVD or lymphadenopathy. CHEST: Clear to auscultation bilaterally. CARDIOVASCULAR SYSTEM: Regular rate and rhythm. ABDOMEN: Soft, tender in left lower quadrant. Nondistended. Positive bowel sounds. There is no hepatosplenomegaly or stigmata of chronic liver disease. EXTREMITIES: No clubbing, cyanosis, or edema. LABORATORY STUDIES: From today include a white blood cell count of 7.50, hemoglobin 11.1, hematocrit 34.4, and a platelet count of 170. A liver panel from 01/31/2018 shows an AST of 151 and ALT of 43 and alkaline phosphatase of 330. Total bilirubin is 0.8, direct bilirubin is 0.4, total protein 6.2, albumin is 3.0. IMAGING STUDIES: Include a CT scan of the abdomen and pelvis from 01/30/2018 which shows diffusely heterogeneous and nodular liver suggesting diffuse metastatic disease, multiple basilar pulmonary nodules bilaterally suggesting pulmonary metastatic disease. No additional acute abnormality of the abdomen or pelvis within limitations of a nonenhanced scan. IMPRESSION: This is an 82-year-old male with diarrhea and anemia with widely metastatic prostate cancer. PLAN: The patient was scheduled to undergo a colonoscopy as an outpatient, though he continues to have diarrhea and is hospitalized for this. Therefore, I would recommend that he be kept n.p.o. after midnight. He will receive a avandeo bowel prep tonight. He will undergo colonoscopy tomorrow with Dr. Bailey for further evaluation of his symptoms. Further recommendations will be provided following this test. I would recommend continuing his current therapy and supportive care as per the primary team. Once again, thanks for allowing me to participate in the care of this patient. If you have any further questions, please do not hesitate in contacting me.
--- NOTE | 2018-02-01 13:45 | Progress Note ---
Medicine Progress Note Date & Time of Visit: Feb 01, 2018 at 13:32. Subjective seen resting in bedside chair comfortable, alert, oriented x 3 feels tired this AM, was not able to sleep well yesterday as he had a BM in bed and had to be cleaned had 1 loose BM overnight denies abdominal pain, nausea denies urinary symptoms no dyspnea, chest pain, cough appetite good no other symptoms Objective Last 8 Hrs Date Time Temp Pulse Resp B/P (MAP) Pulse Ox O2 Delivery O2 Flow Rate FiO2 02/01/18 11:24 36.4 76 16 146/75 (98) 94 02/01/18 09:00 Room Air 02/01/18 07:37 36.6 85 16 132/71 (91) 92 Room Air Physical Exam: General- oriented x 3, not in distress, speaks in sentences with no effort Eyes- anicteric Neck- supple, no JVD Lungs- clear breath sounds bilaterally Heart- regular rhythm; no murmur, normal rate Abdomen- normal bowel sounds, soft, nontender,non distended Extremities-grade 1 lower leg edema, no calf tenderness. warmth, erythema; peripheral pulses intact Neuro- alert, oriented x 3; no gross focal deficits Skin- warm & dry Laboratory Results: Last 24 Hours Test 01/31/18 16:47 01/31/18 19:43 02/01/18 06:58 02/01/18 07:34 Bedside Glucose 109 mg/dl 140 mg/dl 82 mg/dl White Blood Count 7.50 K/uL Red Blood Count 3.53 M/uL Hemoglobin 11.1 g/dL Hematocrit 34.4 % Mean Corpuscular Volume 97.5 fL Mean Corpuscular Hemoglobin 31.4 pg Mean Corpuscular Hemoglobin Concent 32.3 g/dl Platelet Count 170 K/uL Mean Platelet Volume 11.3 fL Neutrophils (%) (Auto) 75.1 % Lymphocytes (%) (Auto) 11.7 % Monocytes (%) (Auto) 10.8 % Eosinophils (%) (Auto) 1.6 % Basophils (%) (Auto) 0.5 % Neutrophils # (Auto) 5.63 K/uL Lymphocytes # (Auto) 0.88 K/uL Monocytes # (Auto) 0.81 K/uL Eosinophils # (Auto) 0.12 K/uL Basophils # (Auto) 0.04 K/uL RDW Standard Deviation 50.6 fL RDW Coefficient of Variation 14.4 % Immature Granulocyte % (Auto) 0.3 % Immature Granulocyte # (Auto) 0.02 K/uL Assessment & Plan RECURRENT DIARRHEA -- C diff negative stool cultures: negative -- recurrent, persistent diarrhea since last month GI consulted -- for Colonoscopy in AM to r/o Microscopic Colitis appreciate GI service input MULTIPLE LIVER/LUNG MASSES, POSSIBLE METASTASIS PROSTATE CANCER Possible progression of prostate cancer ongoing Casodex therapy given increasing outpatient PSA levels. PSA normal awaiting Oncology [facility] [place] recommendations UTI - recent Urologic Procedure last week - urine culture: gram negative bacilli - empiric Ceftri IV Day 1 ff up cultures Anemia, Iron Deficiency Decreasing hemoglobin levels over the last few years. -- Hg stable around 11 -- Fe 34 Fe supplement BID started -- monitor CAD status post CABG, stenting as per records -- (+) leg edema Echo: -- Conclusions -- * Ejection Fraction = 55-60%. * The base posterior wall appears thinned and hypokinetic. * The base inferior wall is mildly hypokinetic. * The left atrium is moderately dilated. * Diastolic dysfunction, Grade II (pseudonormalization pattern). * Aortic valve sclerosis moderate, without significant aortic valvular stenosis. * There is mild mitral regurgitation. * There is mild tricuspid regurgitation. * The estimated systolic pulmonary arterial pressure is 42 mmHg. * Dilated inferior vena cava with reduced collapsability with sniff indicates an elevated right atrial pressure of 15 mmHg -- Doppler US: no DVT -- no chest pain, cardiac symptoms no respiratory distress -- needs to be on ASA daily needs to be on Lasix at least every other day- hold for now as patient is to have bowel prep tonight, to avoid dehydration -- continue Metoprolol, Lisinopril, Atorvastatin HYPERTENSION within acceptable range continue Metoprolol, Lisinopril, Amlodipine DM2, diet controlled, well controlled -- ISS scale Cough symptoms productive of yellow sputum/R ear fullness secondary to persistent sinus infection -- CT sinuses noted Doxy PO started--> now on Ceftri IV for UTI PT, OT eval. DVT prophylaxis Lovenox subQ --> hold as patient is having Colonoscopy tomorrow Full code. Disposition lives with his son at home will need PT/OT anticipate d/c home when medically stable, diarrhea improves updated patient's Son Braydon yesterday over the phone patient and son comfortable and agreeable with plan of care tried to call patient's son today, Braydon no answer, left a voicemail requesting callback Kenneth Lopez MD Current Inpatient Medications: Current Inpatient Medications Medications (Trade) Dose Ordered Sig/Ena Route Start Time Stop Time Status Last Admin Dose Admin Ioversol (Optiray 320) 100 ml UD PRN IV 01/31/18 00:45 02/04/18 00:44 Enoxaparin Sodium (Lovenox Inj) 30 mg Q24H SQ 01/31/18 08:00 03/02/18 07:59 02/01/18 08:54 30 MG Acetaminophen (Tylenol Tab) 650 mg Q4H PRN PO 01/31/18 00:30 03/02/18 00:29 02/01/18 03:39 650 MG Glucose (Glucose 40% Gel) 15-30 GRAMS 15 GRAMS... UD PRN PO 01/31/18 00:30 03/02/18 00:29 Glucose (Glucose Chew Tab) 4-8 Tablets 4 Tabl... UD PRN PO 01/31/18 00:30 03/02/18 00:29 Dextrose (Dextrose 50% 50ML Syringe) 25-50ML OF 50% DW IV FOR... UD PRN IV 01/31/18 00:30 03/02/18 00:29 Glucagon (Glucagon Inj) 1 mg UD PRN SQ 01/31/18 00:30 03/02/18 00:29 Prochlorperazine Edisylate 5 mg/ Syringe 5 ml @ 5 mls/min Q6H PRN IV 01/31/18 00:30 03/02/18 00:29 Tramadol HCl (Ultram Tab) not relieved by tylenol @ Q6H PRN PO 01/31/18 00:30 03/02/18 00:29 Sodium Chloride ([place] Nasal [place]) 2 sprays TID NA 01/31/18 08:00 03/02/18 08:59 02/01/18 08:54 2 SPRAYS Morphine Sulfate (MoRPHine SULFATE INJ) 2 mg Q3H PRN IV 01/31/18 00:30 02/14/18 00:29 Acetaminophen (Tylenol Tab) 650 mg HS PRN PO 01/31/18 00:30 03/02/18 00:29 Famotidine (Pepcid Tab) 40 mg HS PO 01/31/18 21:00 03/02/18 20:59 01/31/18 20:00 40 MG Lisinopril (Zestril Tab) 40 mg DAILY PO 01/31/18 08:00 03/02/18 08:59 02/01/18 08:53 40 MG Metoprolol Succinate (Toprol Xl Tab) 100 mg QAM PO 01/31/18 08:00 03/02/18 08:59 02/01/18 08:53 100 MG Mirabegron (Myrbetriq Er) 50 mg DAILY PO 01/31/18 08:00 03/02/18 08:59 02/01/18 08:54 50 MG Multivitamins (Multivitamin Tab) 1 tab QAM PO 01/31/18 08:00 03/02/18 08:59 02/01/18 08:53 1 TAB Bicalutamide (Casodex Tab) 50 mg DAILY PO 01/31/18 08:00 03/02/18 07:59 02/01/18 09:09 50 MG Miscellaneous (Iv Fluids Completed) 1 ea PRN PRN N/A 01/31/18 04:15 01/31/19 04:14 Insulin Aspart (novoLOG ASPART) SLIDING SCALE If C... ACHS SC 01/31/18 06:30 03/02/18 06:29 Amlodipine Besylate (Norvasc Tab) 10 mg HS PO 01/31/18 21:00 03/02/18 20:59 01/31/18 19:59 10 MG Miconazole Nitrate (Desenex Powder) 1 appln PRN PRN EXT 01/31/18 12:15 03/02/18 12:14 Loperamide HCl (Imodium Cap) 2 mg UD PRN PO 01/31/18 19:45 03/02/18 19:44 01/31/18 19:58 2 MG Ceftriaxone Sodium 1 gm/ Dextrose 50 ml @ 100 mls/hr Q24H IV 02/01/18 09:00 02/11/18 08:59 02/01/18 09:10 100 MLS/HR Polyethylene Glycol/ Electrolytes (Golytely Soln) 16 dose TODAY@2000 PO 02/01/18 20:00 03/03/18 19:59 Ferrous Sulfate (Feosol Tab) 325 mg BIDM PO 02/01/18 17:00 03/03/18 16:59 UNV
[2018-02-01 16:00] VITALS: O2SAT 94
[2018-02-01] MEDS: FERROUS SULFATE 325 MG TAB PO SCH (17:16)
[2018-02-01 19:19] VITALS: BP 139/72; PULSE 84; TEMP 36.8; O2SAT 94
[2018-02-01] MEDS ORDERED: LAVAGE SOLUTION 4000ML PO SCH (20:00)
[2018-02-01] MEDS: FAMOTIDINE 20 MG TAB PO SCH (20:19)
[2018-02-01] MEDS: AMLODIPINE BESYLATE 5 MG TAB PO SCH (20:20)
[2018-02-01 23:11] VITALS: BP 115/63; PULSE 107; TEMP 36.8; O2SAT 93
[2018-02-02 04:33] VITALS: BP 122/62; PULSE 91; TEMP 36.6; O2SAT 90
[2018-02-02 06:27] LABS: BASO % 0.4 %; BASO ABS # 0.03 K/uL (0-0.2); EOS % 1.6 %; EOS ABS # 0.13 K/uL (0-0.5); HEMATOCRIT 35.8 % (42-52); HEMOGLOBIN 11.5 g/dL (14.0-18.0); IG# 0.02 K/uL (0.00-0.02); LYMPH % 9.5 %; LYMPH ABS # 0.75 K/uL (1.2-3.4); MEAN CELL VOLUME 96.5 fL (80-100); MEAN CORPUSCULAR HGB CONC 32.1 g/dl (32-36); MEAN PLATELET VOLUME 11.3 fL (7.4-10.4); MONO % 12.7 %; NEUT % 75.5 %; NEUT ABS # 5.96 K/uL (1.4-6.5); PLATELET COUNT 167 K/uL (130-400); RED CELL DISTRIBUTION WIDTH CV 14.5 % (11.5-14.5); RED CELL DISTRIBUTION WIDTH SD 50.7 fL (36.4-46.3); WHITE BLOOD COUNT 7.89 K/uL (4.8-10.8)
[2018-02-02 07:02] LABS: ALBUMIN 2.7 gm/dl (3.4-5.0); CALCIUM 8.9 mg/dl (8.5-10.1); CREATININE 0.85 mg/dl (0.60-1.40); POTASSIUM 3.4 mmol/L (3.5-5.1)
[2018-02-02 07:05] LABS: TOTAL PROTEIN 5.8 gm/dl (6.4-8.2)
[2018-02-02 07:25] VITALS: BP 130/73; PULSE 86; TEMP 36.6; O2SAT 91
[2018-02-02] MEDS: INSULIN ASPART 100 UNITS/ML 3 ML PEN SC SCH ×4 (07:38→21:00)
[2018-02-02] MEDS: SODIUM CHLORIDE 0.65% NA SOLN 45 ML (OCEAN) SCH ×3 (07:39→21:18)
--- NOTE | 2018-02-02 08:14 | Clinical Documentation Query ---
CLINICAL DOCUMENTATION QUERY 82 year old male who presents to the Emergency Room with complaints of persistent diarrhea and weakness. In your clinical opinion is this patient being managed for: ( ) BAYLEE POA treated and resolved in setting of dehydration, viral GE/diarrhea, and UTI ( X ) Not Agree ( ) Other explanation of clinical findings (Please Explain) ( ) Unable to determine (Please Define) ( ) Need to Discuss The medical record reflects the following clinical findings, treatment, and risk factors. Clinical Indicators: BUN 21->13, Creatinine 1.37->0.85, GFR 47.0->80, Treatment: Multiple IVF boluses, daily PRP's, Risk Factors: Age, Viral GE, diarrhea, dehydration, UTI Please clarify and document your clinical opinion in the progress notes and discharge summary. Terms such as "probable", "suspected", "likely", "questionable", "possible", or "still to be ruled out" are acceptable. IF IN AGREEMENT, YOU MUST DOCUMENT ABOVE DIAGNOSTIC STATEMENT IN DAILY PROGRESS NOTES AND DISCHARGE SUMMARY. This document is not part of the patient's record. AKIAcute Renal/Kidney Injury is defined as a rapid and usually reversible decline in GFR that may occur in the setting of normal renal function or with preexisting renal disease. Acute renal failure may present with a range of abnormal parameters. Current RIFLE criteria notes the following: "Patients can be classified either by GFR or by UO criteria." According to RIFLE, BAYLEE is defined as any of the following: SCr increased 2-3x baseline or GFR decreased >50% or <0.5mL/kg/h > 12 hrs The MARCELLE criteria differ from the RIFLE criteria in several ways. The RIFLE criteria are defined as changes within 7 days, while the MARCELLE criteria suggest using 48 hours. The MARCELLE classification includes less severe injury in the criteria and MARCELLE also avoids using the glomerular filtration rate as a marker in BAYLEE, as there is no dependable way to measure glomerular filtration rate and estimated glomerular filtration rate are unreliable in BAYLEE. The criteria: Abrupt (within 48 h) reduction in kidney function currently defined as an absolute increase in serum creatinine of 0.3 mg/dL or more (=26.4 umol/L) or a percentage increase in serum creatinine of 50% or more (1.5-fold from baseline) or a reduction in urine output (documented oliguria of < 0.5 mL/kg/h for >6 h) In 2012 the Kidney Disease Improving [employer] Outcomes (KDIGO) released their clinical practice guidelines for acute kidney injury (BAYLEE), which build off of the RIFLE criteria and the MARCELLE criteria. KDIGO defines BAYLEE as any of the following: Increase in serum creatinine by 0.3mg/dL or more within 48 hours or increase in serum creatinine to 1.5 times baseline or more within the last 7 days or urine output less than 0.5 mL/kg/h for 6 hours Thank You, Philippe Alvarez, RN [phone]
--- NOTE | 2018-02-02 09:26 | History & Physical Bridge Note ---
H&P Re-Evaluation Bridge Note: I have examined the patient, reviewed the History & Physical and in the interval since the performance of the History & Physical I have noted the following changes of clinical significance: No changes noted
[2018-02-02] MEDS ORDERED: LIDOCAINE HCL 2% 2 ML VIAL (20MG/ML) ONE (10:11)
[2018-02-02] MEDS ORDERED: PROPOFOL IV EMULSION 10 MG/ML 20 ML VIAL IV ONE (10:11)
--- NOTE | 2018-02-02 10:43 | GI REPORT ---
Procedure Date: 02/02/2018 9:36 AM Procedure: Colonoscopy Indications: Chronic diarrhea Medicines: See the Anesthesia note for documentation of the administered medications Complications: No immediate complications. Estimated Blood Loss: Estimated blood loss: none. Procedure: Pre-Anesthesia Assessment: - ASA Grade Assessment: III - A patient with severe systemic disease. After I obtained informed consent, the scope was passed under direct vision. Throughout the procedure, the patient's blood pressure, pulse, and oxygen saturations were monitored continuously. The scope was introduced through the anus and advanced to the terminal ileum. The colonoscopy was performed without difficulty. The patient tolerated the procedure well. The quality of the bowel preparation was good. Findings: The perianal and digital rectal examinations were normal. Multiple small and large-mouthed diverticula were found in the entire colon. There was an inflamed sigmoid diverticulum with pus. A 5 mm polyp was found in the transverse colon. The polyp was sessile. Because of the pt's comorbidities, this polyp was not removed. There were multiple large non bleeding AVM's in the ascending colon. Hemorrhoids on retroflexion. The ileum was normal. Random biopsies done from throughout the colon, and from the ileum. A stool aspirate was also done. Impression: - Diverticulosis in the entire examined colon. Diverticulitis in sigmoid colon. - One 5 mm polyp in the transverse colon, removed with a cold snare. Resected and retrieved. - AVM's in ascending colon. - Hemorrhoids. Recommendation: - Discharge patient to floor. Jonathan and [place] for diverticulitis. Terry Bailey M.D. Terry Bailey MD 02/02/2018 10:43:26 AM This report has been signed electronically. Note Initiated On: 02/02/2018 9:36 AM I attest to the content of the Intraoperative Record and orders documented therein, exceptions below
--- NOTE | 2018-02-02 10:49 | Medical Consult ---
Consultation Date of Consultation: Feb 02, 2018. Attending Physician: Ac Lopez MD Reason for Consultation: "Metastatic cancer" History of Present Illness Mr. Malone is an 82 yo M new to the consulting Medical Oncology service. He has a PMH significant for T2DM, ischemic heart disease with CABG status, dyslipidemia, history of prostate cancer on Casodex, HTN, history TIA He reported to [facility] for GI symptoms of diarrhea, nonbloody with cramping, nausea , poor appetite for 6 weeks. He was being worked up by GI as outpatient and colonoscopy was planned for microscopic colitis. He also has lost weight per the H+P, amount not specified. His admission CT of abd/pelvis shows diffuse metastatic disease of the liver as well as nodules in bases of lungs. He had colonoscopy today that does not reveal malignant findings; he does have AVMs. His PSA was 0.042 on admission, last PSA in Jun 2017 was around 20, started on Casodex at that time. He follows with Dr. Figueroa. Per son, he had low grade prostate cancer (pathology report not on file). A note from Nov [address] Figueroa stated he was on Casodex monotherapy. Additional history obtained from the patient at bedside. He denies dizziness or headache. He has not cough or dyspnea. See above for GI history prior to admission. He states he had a BM today that was more formed he thinks. He has been NPO prior to procedure and prior was on liquid diet. He denies abdominal pain. He denies focal bone pain. He states he lives independently in the community, but prior to admission he was starting to feel deconditioned and light housework was difficult to accomplish. Patient's son requesting for updates from providers. Mr. Braydon Malone, contact number [phone]. Past Medical/Surgical History Medical Problems: (1) Dehydration Status: Acute (2) Diarrhea Status: Acute (3) Metastatic disease Status: Acute (4) Weakness Status: Acute Social History Smoking Status: Former Smoker Marital Status: Occupation Status: retired Allergies Coded Allergies: Ciprofloxacin (Verified Allergy, Unknown, CHEST PAIN, 09/11/16) Clavulanic Acid (Verified Allergy, Unknown, 0, 01/31/18) Iodine (Verified Allergy, Unknown, 0, 01/31/18) Quinolones (Verified Allergy, Unknown, CHEST PAIN, 09/11/16) Sulfa Drugs (Verified Allergy, Unknown, BREAKS OUT, 09/11/16) Terazosin (Verified Allergy, Unknown, UNKNOWN, 09/11/16) Current Inpatient Medications Current Inpatient Medications Medications (Trade) Dose Ordered Sig/Ena Route Start Time Stop Time Status Last Admin Dose Admin Ioversol (Optiray 320) 100 ml UD PRN IV 01/31/18 00:45 02/04/18 00:44 Acetaminophen (Tylenol Tab) 650 mg Q4H PRN PO 01/31/18 00:30 03/02/18 00:29 02/01/18 03:39 650 MG Glucose (Glucose 40% Gel) 15-30 GRAMS 15 GRAMS... UD PRN PO 01/31/18 00:30 03/02/18 00:29 Glucose (Glucose Chew Tab) 4-8 Tablets 4 Tabl... UD PRN PO 01/31/18 00:30 03/02/18 00:29 Dextrose (Dextrose 50% 50ML Syringe) 25-50ML OF 50% DW IV FOR... UD PRN IV 01/31/18 00:30 03/02/18 00:29 Glucagon (Glucagon Inj) 1 mg UD PRN SQ 01/31/18 00:30 03/02/18 00:29 Prochlorperazine Edisylate 5 mg/ Syringe 5 ml @ 5 mls/min Q6H PRN IV 01/31/18 00:30 03/02/18 00:29 Tramadol HCl (Ultram Tab) not relieved by tylenol @ Q6H PRN PO 01/31/18 00:30 03/02/18 00:29 Sodium Chloride ([place] Nasal [place]) 2 sprays TID NA 01/31/18 08:00 03/02/18 08:59 02/02/18 07:39 2 SPRAYS Morphine Sulfate (MoRPHine SULFATE INJ) 2 mg Q3H PRN IV 01/31/18 00:30 02/14/18 00:29 Acetaminophen (Tylenol Tab) 650 mg HS PRN PO 01/31/18 00:30 03/02/18 00:29 Famotidine (Pepcid Tab) 40 mg HS PO 01/31/18 21:00 03/02/18 20:59 02/01/18 20:19 40 MG Lisinopril (Zestril Tab) 40 mg DAILY PO 01/31/18 08:00 03/02/18 08:59 02/01/18 08:53 40 MG Metoprolol Succinate (Toprol Xl Tab) 100 mg QAM PO 01/31/18 08:00 03/02/18 08:59 02/01/18 08:53 100 MG Mirabegron (Myrbetriq Er) 50 mg DAILY PO 01/31/18 08:00 03/02/18 08:59 02/01/18 08:54 50 MG Multivitamins (Multivitamin Tab) 1 tab QAM PO 01/31/18 08:00 03/02/18 08:59 02/01/18 08:53 1 TAB Bicalutamide (Casodex Tab) 50 mg DAILY PO 01/31/18 08:00 03/02/18 07:59 02/01/18 09:09 50 MG Miscellaneous (Iv Fluids Completed) 1 ea PRN PRN N/A 01/31/18 04:15 01/31/19 04:14 Insulin Aspart (novoLOG ASPART) SLIDING SCALE If C... ACHS SC 01/31/18 06:30 03/02/18 06:29 Amlodipine Besylate (Norvasc Tab) 10 mg HS PO 01/31/18 21:00 03/02/18 20:59 02/01/18 20:20 10 MG Miconazole Nitrate (Desenex Powder) 1 appln PRN PRN EXT 01/31/18 12:15 03/02/18 12:14 Loperamide HCl (Imodium Cap) 2 mg UD PRN PO 01/31/18 19:45 03/02/18 19:44 01/31/18 19:58 2 MG Ceftriaxone Sodium 1 gm/ Dextrose 50 ml @ 100 mls/hr Q24H IV 02/01/18 09:00 02/11/18 08:59 02/01/18 09:10 100 MLS/HR Polyethylene Glycol/ Electrolytes (Golytely Soln) 16 dose TODAY@2000 PO 02/01/18 20:00 03/03/18 19:59 02/01/18 20:21 16 DOSE Ferrous Sulfate (Feosol Tab) 325 mg BIDM PO 02/01/18 17:00 5/22/18 16:59 02/01/18 17:16 325 MG Review of Systems Constitutional: + weight loss, + fatigue, No fever Respiratory: No cough, No shortness of breath Cardiovascular: No chest pain Abdomen: + nausea, + diarrhea, No pain Musculoskeletal: No joint pain Genitourinary - Male: + urinary incontinence Neurologic: + weakness, No vertigo Integumentary: No rash Physical Exam Date Time Temp Pulse Resp B/P (MAP) Pulse Ox O2 Delivery O2 Flow Rate FiO2 02/02/18 10:15 83 20 106/62 (77) 93 Room Air 02/02/18 09:18 36.6 93 20 121/66 (84) 93 Room Air 02/02/18 08:00 Room Air 02/02/18 07:25 36.6 86 20 130/73 (92) 91 02/02/18 04:33 36.6 91 20 122/62 (82) 90 Room Air 02/02/18 00:00 Room Air 02/01/18 23:11 36.8 107 18 115/63 (80) 93 Room Air 02/01/18 19:19 36.8 84 20 139/72 (94) 94 Room Air 02/01/18 16:00 94 Room Air 02/01/18 11:24 36.4 76 16 146/75 (98) 94 General Appearance: no apparent distress ENT: hearing grossly normal Respiratory/Chest: lungs clear Cardiovascular: + irregularly irregular, + abnormal peripheral pulses Abdomen/GI: normal bowel sounds, non tender, soft Extremities/Musculoskelatal: no calf tenderness Neurologic/Psych: alert, oriented x 3 Skin: warm/dry Laboratory Results 01/30/18 21:15 Red Blood Count 3.59, Mean Corpuscular Volume 97.2, Mean Corpuscular Hemoglobin 31.5, Mean Corpuscular Hemoglobin Concent 32.4, Mean Platelet Volume 11.1, Neutrophils (%) (Auto) 79.1, Lymphocytes (%) (Auto) 6.9, Monocytes (%) (Auto) 12.1, Eosinophils (%) (Auto) 1.2, Basophils (%) (Auto) 0.4, Neutrophils # (Auto ) 6.16, Lymphocytes # (Auto) 0.54, Monocytes # (Auto) 0.94, Eosinophils # (Auto ) 0.09, Basophils # (Auto) 0.03 01/31/18 08:16 Red Blood Count 3.62, Mean Corpuscular Volume 97.0, Mean Corpuscular Hemoglobin 32.0, Mean Corpuscular Hemoglobin Concent 33.0, Mean Platelet Volume 11.1, Neutrophils (%) (Auto) 77.3, Lymphocytes (%) (Auto) 10.6, Monocytes (%) (Auto) 9.9, Eosinophils (%) (Auto) 1.6, Basophils (%) (Auto) 0.4, Neutrophils # (Auto) 6.30, Lymphocytes # (Auto) 0.86, Monocytes # (Auto) 0.81, Eosinophils # (Auto) 0.13, Basophils # (Auto) 0.03 02/01/18 06:58 Red Blood Count 3.53, Mean Corpuscular Volume 97.5, Mean Corpuscular Hemoglobin 31.4, Mean Corpuscular Hemoglobin Concent 32.3, Mean Platelet Volume 11.3, Neutrophils (%) (Auto) 75.1, Lymphocytes (%) (Auto) 11.7, Monocytes (%) (Auto) 10.8, Eosinophils (%) (Auto) 1.6, Basophils (%) (Auto) 0.5, Neutrophils # (Auto ) 5.63, Lymphocytes # (Auto) 0.88, Monocytes # (Auto) 0.81, Eosinophils # (Auto ) 0.12, Basophils # (Auto) 0.04 02/02/18 06:06 Red Blood Count 3.71, Mean Corpuscular Volume 96.5, Mean Corpuscular Hemoglobin 31.0, Mean Corpuscular Hemoglobin Concent 32.1, Mean Platelet Volume 11.3, Neutrophils (%) (Auto) 75.5, Lymphocytes (%) (Auto) 9.5, Monocytes (%) (Auto) 12.7, Eosinophils (%) (Auto) 1.6, Basophils (%) (Auto) 0.4, Neutrophils # (Auto ) 5.96, Lymphocytes # (Auto) 0.75, Monocytes # (Auto) 1.00, Eosinophils # (Auto ) 0.13, Basophils # (Auto) 0.03 01/30/18 21:15 01/31/18 08:16 02/02/18 06:06 Test 01/30/18 21:15 01/30/18 22:40 01/31/18 00:42 01/31/18 08:14 White Blood Count 7.78 K/uL (4.8-10.8) Red Blood Count 3.59 M/uL (4.7-6.1) Hemoglobin 11.3 g/dL (14.0-18.0) Hematocrit 34.9 % (42-52) Mean Corpuscular Volume 97.2 fL (80-100) Mean Corpuscular Hemoglobin 31.5 pg (25-34) Mean Corpuscular Hemoglobin Concent 32.4 g/dl (32-36) Platelet Count 182 K/uL (130-400) Mean Platelet Volume 11.1 fL (7.4-10.4) Neutrophils (%) (Auto) 79.1 % Lymphocytes (%) (Auto) 6.9 % Monocytes (%) (Auto) 12.1 % Eosinophils (%) (Auto) 1.2 % Basophils (%) (Auto) 0.4 % Neutrophils # (Auto) 6.16 K/uL (1.4-6.5) Lymphocytes # (Auto) 0.54 K/uL (1.2-3.4) Monocytes # (Auto) 0.94 K/uL (0.11-0.59) Eosinophils # (Auto) 0.09 K/uL (0-0.5) Basophils # (Auto) 0.03 K/uL (0-0.2) RDW Standard Deviation 50.0 fL (36.4-46.3) RDW Coefficient of Variation 14.2 % (11.5-14.5) Immature Granulocyte % (Auto) 0.3 % Immature Granulocyte # (Auto) 0.02 K/uL (0.00-0.02) Prothrombin Time 12.6 SECONDS (9.0-12.0) Prothromb Time International Ratio 1.2 (0.9-1.1) Activated Partial Thromboplast Time 24.7 SECONDS (21.0-31.0) Partial Thromboplastin Ratio 1.0 Anion Gap 8.0 mmol/L (3-11) Est Creatinine Clear Calc Drug Dose 42.7 ml/min Estimated GFR () 54.5 Estimated GFR (Non- 47.0 BUN/Creatinine Ratio 15.5 (10-20) Calcium Level 9.0 mg/dl (8.5-10.1) Magnesium Level 2.0 mg/dl (1.8-2.4) Total Bilirubin 0.8 mg/dl (0.2-1) Aspartate Amino Transf (AST/SGOT) 152 U/L (15-37) Alanine Aminotransferase (ALT/SGPT) 45 U/L (12-78) Alkaline Phosphatase 310 U/L (45-117) Troponin I < 0.015 ng/ml (0-0.045) Pro-B-Type Natriuretic Peptide 19637 pg/ml (0-1800) Total Protein 6.2 gm/dl (6.4-8.2) Albumin 3.1 gm/dl (3.4-5.0) Globulin 3.1 gm/dl (2.5-4.0) Albumin/Globulin Ratio 1.0 (0.9-2) Thyroid Stimulating Hormone (TSH) 2.440 uIu/ml (0.300-4.500) Urine Color DK YELLOW Urine Appearance CLOUDY (CLEAR) Urine pH 5.0 (4.5-7.5) Urine Specific [place] 1.023 (1.000-1.030) Urine Protein 1+ (NEG) Urine Glucose (UA) NEG (NEG) Urine Ketones TRACE (NEG) Urine Occult Blood NEG (NEG) Urine Nitrite NEG (NEG) Urine Bilirubin NEG (NEG) Urine Urobilinogen NEG (NEG) Urine Leukocyte Esterase MODERATE (NEG) Urine WBC (Auto) 10-30 /hpf (0-5) Urine RBC (Auto) 5-10 /hpf (0-4) Urine Hyaline Casts (Auto) 5-10 /lpf (0-5) Urine Epithelial Cells (Auto) 20-30 /lpf (0-5) Urine Bacteria (Auto) NEG (NEG) Urine Pathogenic Casts 1-5 GRANULAR CASTS /lpf (0) Urine Yeast (Auto) PRESENT (NONE PRSENT) Bedside Glucose 131 mg/dl (70-99) 93 mg/dl (70-99) Test 01/31/18 08:16 01/31/18 11:41 01/31/18 16:47 01/31/18 19:43 White Blood Count 8.15 K/uL (4.8-10.8) Red Blood Count 3.62 M/uL (4.7-6.1) Hemoglobin 11.6 g/dL (14.0-18.0) Hematocrit 35.1 % (42-52) Mean Corpuscular Volume 97.0 fL (80-100) Mean Corpuscular Hemoglobin 32.0 pg (25-34) Mean Corpuscular Hemoglobin Concent 33.0 g/dl (32-36) Platelet Count 175 K/uL (130-400) Mean Platelet Volume 11.1 fL (7.4-10.4) Neutrophils (%) (Auto) 77.3 % Lymphocytes (%) (Auto) 10.6 % Monocytes (%) (Auto) 9.9 % Eosinophils (%) (Auto) 1.6 % Basophils (%) (Auto) 0.4 % Neutrophils # (Auto) 6.30 K/uL (1.4-6.5) Lymphocytes # (Auto) 0.86 K/uL (1.2-3.4) Monocytes # (Auto) 0.81 K/uL (0.11-0.59) Eosinophils # (Auto) 0.13 K/uL (0-0.5) Basophils # (Auto) 0.03 K/uL (0-0.2) RDW Standard Deviation 49.8 fL (36.4-46.3) RDW Coefficient of Variation 14.3 % (11.5-14.5) Immature Granulocyte % (Auto) 0.2 % Immature Granulocyte # (Auto) 0.02 K/uL (0.00-0.02) Absolute Reticulocyte Count 0.04 10^6/uL (0.02-0.10) Percent Reticulocyte Count 1.2 % (0.5-2.0) Anion Gap 10.0 mmol/L (3-11) Est Creatinine Clear Calc Drug Dose 58.0 ml/min Estimated GFR () 78.8 Estimated GFR (Non- 68.0 BUN/Creatinine Ratio 19.0 (10-20) Calcium Level 9.0 mg/dl (8.5-10.1) Iron Level 34 mcg/dl (35-175) Total Iron Binding Capacity 259 mcg/dl (250-450) Transferrin 200 mg/dl (200-360) Transferrin % Saturation 12 % (20-50) Ferritin 269.0 ng/ml (8.0-388.0) Total Bilirubin 0.8 mg/dl (0.2-1) Direct Bilirubin 0.4 mg/dl (0-0.2) Aspartate Amino Transf (AST/SGOT) 151 U/L (15-37) Alanine Aminotransferase (ALT/SGPT) 43 U/L (12-78) Alkaline Phosphatase 330 U/L (45-117) Total Protein 6.2 gm/dl (6.4-8.2) Albumin 3.0 gm/dl (3.4-5.0) Prostate Specific Antigen 0.042 ng/ml (0.000-4.000) Vitamin B12 Level 1528 pg/mL (211-911) Folate 19.41 ng/mL (>5.38) Bedside Glucose 104 mg/dl (70-99) 109 mg/dl (70-99) 140 mg/dl (70-99) Test 02/01/18 06:58 02/01/18 07:34 02/01/18 13:18 02/01/18 16:16 White Blood Count 7.50 K/uL (4.8-10.8) Red Blood Count 3.53 M/uL (4.7-6.1) Hemoglobin 11.1 g/dL (14.0-18.0) Hematocrit 34.4 % (42-52) Mean Corpuscular Volume 97.5 fL (80-100) Mean Corpuscular Hemoglobin 31.4 pg (25-34) Mean Corpuscular Hemoglobin Concent 32.3 g/dl (32-36) Platelet Count 170 K/uL (130-400) Mean Platelet Volume 11.3 fL (7.4-10.4) Neutrophils (%) (Auto) 75.1 % Lymphocytes (%) (Auto) 11.7 % Monocytes (%) (Auto) 10.8 % Eosinophils (%) (Auto) 1.6 % Basophils (%) (Auto) 0.5 % Neutrophils # (Auto) 5.63 K/uL (1.4-6.5) Lymphocytes # (Auto) 0.88 K/uL (1.2-3.4) Monocytes # (Auto) 0.81 K/uL (0.11-0.59) Eosinophils # (Auto) 0.12 K/uL (0-0.5) Basophils # (Auto) 0.04 K/uL (0-0.2) RDW Standard Deviation 50.6 fL (36.4-46.3) RDW Coefficient of Variation 14.4 % (11.5-14.5) Immature Granulocyte % (Auto) 0.3 % Immature Granulocyte # (Auto) 0.02 K/uL (0.00-0.02) Bedside Glucose 82 mg/dl (70-99) 182 mg/dl (70-99) 109 mg/dl (70-99) Test 02/01/18 19:59 02/02/18 06:06 02/02/18 07:32 Bedside Glucose 135 mg/dl (70-99) 94 mg/dl (70-99) White Blood Count 7.89 K/uL (4.8-10.8) Red Blood Count 3.71 M/uL (4.7-6.1) Hemoglobin 11.5 g/dL (14.0-18.0) Hematocrit 35.8 % (42-52) Mean Corpuscular Volume 96.5 fL (80-100) Mean Corpuscular Hemoglobin 31.0 pg (25-34) Mean Corpuscular Hemoglobin Concent 32.1 g/dl (32-36) Platelet Count 167 K/uL (130-400) Mean Platelet Volume 11.3 fL (7.4-10.4) Neutrophils (%) (Auto) 75.5 % Lymphocytes (%) (Auto) 9.5 % Monocytes (%) (Auto) 12.7 % Eosinophils (%) (Auto) 1.6 % Basophils (%) (Auto) 0.4 % Neutrophils # (Auto) 5.96 K/uL (1.4-6.5) Lymphocytes # (Auto) 0.75 K/uL (1.2-3.4) Monocytes # (Auto) 1.00 K/uL (0.11-0.59) Eosinophils # (Auto) 0.13 K/uL (0-0.5) Basophils # (Auto) 0.03 K/uL (0-0.2) RDW Standard Deviation 50.7 fL (36.4-46.3) RDW Coefficient of Variation 14.5 % (11.5-14.5) Immature Granulocyte % (Auto) 0.3 % Immature Granulocyte # (Auto) 0.02 K/uL (0.00-0.02) Anion Gap 7.0 mmol/L (3-11) Est Creatinine Clear Calc Drug Dose 76.1 ml/min Estimated GFR () 92.7 Estimated GFR (Non- 80.0 BUN/Creatinine Ratio 15.4 (10-20) Calcium Level 8.9 mg/dl (8.5-10.1) Total Bilirubin 0.9 mg/dl (0.2-1) Direct Bilirubin 0.4 mg/dl (0-0.2) Aspartate Amino Transf (AST/SGOT) 141 U/L (15-37) Alanine Aminotransferase (ALT/SGPT) 40 U/L (12-78) Alkaline Phosphatase 300 U/L (45-117) Total Protein 5.8 gm/dl (6.4-8.2) Albumin 2.7 gm/dl (3.4-5.0) Date/Time Source Procedure Growth Status 01/31/18 11:22 Stool C.difficile Toxin B Gene (PCR) - Final No C. difficile toxin B gene detected Complete 01/30/18 22:40 Urine , Clean Catch Urine Culture - Final Pseudomonas Aeruginosa Complete CT of abd/pelvis from 01/30/18: Lung bases demonstrate a multinodular appearance. There are several nodules at the right base measuring 2 9 mm. Nodularity left base again is remarkable for several nodules measuring up to 9 mm. Liver is diffusely heterogeneous with what appears to be diffuse nodularity throughout all hepatic components. This is highly suggestive of metastatic disease. Gallbladder slightly distended. There is atelectatic change and ectasia of the abdominal aorta. Within limitations of an unenhanced scan there does not appear to be significant adenopathy. There is trace amount of fluid within a fat-containing left inguinal hernia. Bowel pattern is again nonobstructive. There are findings of scattered colonic diverticuli with no evidence of diverticulitis. The appendix is normal. Severe degenerative changes of all major osseous structures with no well- defined lytic process. Venous Doppler bilateral LE from 01/31/2018: There is no sonographic evidence of deep venous thrombosis identified in the right or left lower extremity. CXR from 01/31/18: The heart is enlarged and there is atherosclerotic calcification of the thoracic aorta. There ispulmonary vascular congestion. Assessment & Plan 1. Diffuse metastatic liver disease 2. Lung base nodules 3.Prostate cancer- started monotherapy with Casodex in Jun 2017 when PSA increased to around 20 4. Normocytic anemia 5. Diarrhea, weight loss, poor appetite * Discussed with the patient and via phone with his son about current clinical data- colonoscopy negative for malignancy, no appreciable bone mets on scans to date, which is atypical for metastatic prostate cancer * PSA was very low on this this admission, 0.042 * Uncertain if the liver mets and possible lung nodules are related to his prostate carcinoma or a different primary * Patient and son are agreeable to further work up- bone scan and CT of chest * CEA level is pending (drawn prior to colonoscopy) * Patient and son are agreeable to US guided liver biopsy to confirm type of carcinoma in liver * Discussed with son about overall poor prognosis with diffuse liver metastatic disease but that treatment decisions in relation to Stage IV cancer could be made once more of work up completed * The above plan was formulated with Dr. Hermosillo * Dr. 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 Dr. Hermosillo is attending medical oncologist- please see his addendum I performed history and physical examination of the patient. I have discussed the patient's case, impression and plan with Jeanette Cuadra PA-C. Her note reflects my findings and plan. In summary, he is a 82-year-old gentleman, a known case of carcinoma of prostate , he is on Casodex single agent therapy since June 14 1017 minutes PSA level was around 20, now admitted Hospital for increasing diarrhea of 5 to 6 weeks duration, some weight loss, poor appetite, found to have innumerable liver lesions, multiple lung nodules suspicious for metastatic disease, PSA level is quite low. Colonoscopy showed no obvious primary sites. Normal CEA level. Neuroendocrine tumor would be possible with widespread metastatic disease involving the liver and lungs. Would like to get biopsy of the liver lesion for further evaluation. Further workup and treatment based on final diagnosis. I also spoke with the patient 's son was at bedside regarding his case, also reviewed with him regarding CT scan images. Will follow up. Dr. Alexys Hermosillo Hem/Onc (This note was completed using the dictation program Fluency Direct. As such, there may be misspellings, word substitutions, or other variations that should not change the essence of the clinical content of this encounter note. If there is need for further clarification, please direct questions to the provider listed above.)
[2018-02-02 11:12] VITALS: BP 138/84; PULSE 104; TEMP 36.3; O2SAT 92
[2018-02-02] MEDS: METOPROLOL SUCC 50MG EXT REL TAB PO SCH (11:13)
[2018-02-02] MEDS: MIRABEGRON ER 25 MG TAB PO SCH (11:13)
[2018-02-02] MEDS: MULTIVITAMIN TAB PO SCH (11:13)
[2018-02-02] MEDS: FERROUS SULFATE 325 MG TAB PO SCH ×2 (11:14→17:17)
[2018-02-02] MEDS: CEFTRIAXONE SOD INJ 1 GM in DEXTROSE 5% ADD-VANTAGE 50ML 50 ML IV SCH (11:14)
[2018-02-02] MEDS: LISINOPRIL 40 MG TAB PO SCH (11:14)
[2018-02-02] MEDS: BICALUTAMIDE 50 MG TAB PO SCH (11:15)
--- NOTE | 2018-02-02 11:59 | Anesthesiology Progress Note ---
Anesthesia Post Op Note Date & Time Feb 02, 2018 at 11:59 Vital Signs Pain Intensity: 0.0 Vital Signs Past 12 Hours Date Time Temp Pulse Resp B/P (MAP) Pulse Ox O2 Delivery O2 Flow Rate FiO2 02/02/18 11:12 36.3 104 16 138/84 (102) 92 Room Air 02/02/18 10:45 86 20 117/78 (91) 93 Room Air 02/02/18 10:30 84 20 111/58 (75) 93 Room Air 02/02/18 10:15 83 20 106/62 (77) 93 Room Air 02/02/18 09:18 36.6 93 20 121/66 (84) 93 Room Air 02/02/18 08:00 Room Air 02/02/18 07:25 36.6 86 20 130/73 (92) 91 02/02/18 04:33 36.6 91 20 122/62 (82) 90 Room Air 02/02/18 00:00 Room Air Notes Mental Status: alert / awake / arousable, participated in evaluation Pt Amnestic to Procedure: Yes Nausea / Vomiting: adequately controlled Pain: adequately controlled Airway Patency, RR, SpO2: stable & adequate BP & HR: stable & adequate Hydration State: stable & adequate Anesthetic Complications: no major complications apparent
[2018-02-02] MEDS ORDERED: CEFEPIME CONSULT ACTIVE PRN (12:37)
[2018-02-02] MEDS: CEFEPIME IV 2,000 MG in SYRINGE 7.5 ML IV SCH (14:28)
[2018-02-02] MEDS ORDERED: CEFEPIME IV 2,000 MG in SYRINGE 7.5 ML IV SCH (15:00)
[2018-02-02 15:52] VITALS: BP 130/73; PULSE 83; TEMP 36.4; O2SAT 93
--- NOTE | 2018-02-02 16:24 | DIAGNOSTIC IMAGING REPORT ---
(CHEST) THORAX WITHOUT CT DOSE: 387.79 mGy.cm HISTORY: Neoplasm Evaluate chest for Stage IV cancer, unknown primary TECHNIQUE: Multiaxial CT images of the chest were performed without contrast. A dose lowering technique was utilized adhering to the principles of ALARA. COMPARISON: None. FINDINGS: Diffuse nodularity throughout both hemithoraces. This appearance is consistent with that of diffuse metastatic disease. Moderate atherosclerotic change thoracic aorta. Moderate prominence the aortic root at 4.7 cm. The parenchymal nodularity has to many nodules to evaluate although they measure up to 1 cm. There is bibasilar interstitial and bronchovascular change. There is trace amount pleural fluid both lung bases. There is calcification of the coronary arterial vasculature. There are findings of diffuse metastatic change throughout the liver. There are degenerative changes of the osseous structures throughout. There has been a prior median sternotomy. IMPRESSION: 1. too Numerous to count parenchymal nodules throughout both hemithoraces. 2. Prominent bibasilar interstitial and bronchovascular change. 3. Diffuse hepatic metastatic disease. 4. This appearance is most consistent with that of diffuse metastatic disease involving the lungs as well as liver. The above report was generated using voice recognition software. It may contain grammatical, syntax or spelling errors. Electronically signed by: Ervin Benavides M.D. 02/02/2018 4:22 PM Dictated Date/Time: 02/02/2018 4:18 PM
[2018-02-02] MEDS ORDERED: FUROSEMIDE 20 MG TAB PO ONE (18:00)
--- NOTE | 2018-02-02 18:45 | DIAGNOSTIC IMAGING REPORT ---
BONE SCAN WHOLE BODY HISTORY: Metastatic carcinoma Stage IV cancer of unknown primary, prior h/o prostate cancer RADIOTRACER: 27.2 mCi Tc-99m MDP STUDY/IMAGES: Planar anterior and posterior whole body imaging was performed 3 hours following the intravenous administration of radiotracer. COMPARISON: None. FINDINGS: Bilateral renal activity is present. Mild degenerative activity of the knees bilaterally and to a lesser extent hips and shoulders are present. There is moderate degenerative activity of the sternoclavicular joints. There is no evidence for metastatic bone disease based on this exam. IMPRESSION: Scattered degenerative activity. No evidence of bone metastatic disease. The above report was generated using voice recognition software. It may contain grammatical, syntax or spelling errors. Electronically signed by: Ervin Benavides M.D. 02/02/2018 6:43 PM Dictated Date/Time: 02/02/2018 6:42 PM
[2018-02-02] MEDS: METRONIDAZOLE / NSS 500 MG in PREMIXED NSS 100 ML IV SCH (19:02)
--- NOTE | 2018-02-02 19:55 | Progress Note ---
Medicine Progress Note Date & Time of Visit: Feb 02, 2018 at 19:40. Subjective seen resting in bed, comfortable son Braydon at the bedside s/p Colonoscopy this AM states he is hungry, would like diet to be advanced had 1 loose BM after Colonoscopy, no abdominal pain no cough, dyspnea, chest pain no other symptoms Objective Last 8 Hrs Date Time Temp Pulse Resp B/P (MAP) Pulse Ox O2 Delivery O2 Flow Rate FiO2 02/02/18 16:49 Room Air 02/02/18 15:52 36.4 83 16 130/73 (92) 93 Room Air Physical Exam: General- oriented x 3, not in distress, speaks in sentences with no effort Neck- no JVD Lungs- clear breath sounds bilaterally, no rales/wheezes Heart- regular rhythm; no murmur, normal rate Abdomen- normal bowel sounds, soft, nontender,non distended Extremities-grade 1 lower leg edema, no calf tenderness, warmth, erythema; peripheral pulses intact Neuro- alert, oriented x 3; no gross focal deficits Skin- warm & dry Laboratory Results: Last 24 Hours Test 02/01/18 19:59 02/02/18 06:06 02/02/18 07:32 02/02/18 11:49 Bedside Glucose 135 mg/dl 94 mg/dl White Blood Count 7.89 K/uL Red Blood Count 3.71 M/uL Hemoglobin 11.5 g/dL Hematocrit 35.8 % Mean Corpuscular Volume 96.5 fL Mean Corpuscular Hemoglobin 31.0 pg Mean Corpuscular Hemoglobin Concent 32.1 g/dl Platelet Count 167 K/uL Mean Platelet Volume 11.3 fL Neutrophils (%) (Auto) 75.5 % Lymphocytes (%) (Auto) 9.5 % Monocytes (%) (Auto) 12.7 % Eosinophils (%) (Auto) 1.6 % Basophils (%) (Auto) 0.4 % Neutrophils # (Auto) 5.96 K/uL Lymphocytes # (Auto) 0.75 K/uL Monocytes # (Auto) 1.00 K/uL Eosinophils # (Auto) 0.13 K/uL Basophils # (Auto) 0.03 K/uL RDW Standard Deviation 50.7 fL RDW Coefficient of Variation 14.5 % Immature Granulocyte % (Auto) 0.3 % Immature Granulocyte # (Auto) 0.02 K/uL Sodium Level 140 mmol/L Potassium Level 3.4 mmol/L Chloride Level 109 mmol/L Carbon Dioxide Level 24 mmol/L Anion Gap 7.0 mmol/L Blood Urea Nitrogen 13 mg/dl Creatinine 0.85 mg/dl Est Creatinine Clear Calc Drug Dose 76.1 ml/min Estimated GFR () 92.7 Estimated GFR (Non- 80.0 BUN/Creatinine Ratio 15.4 Random Glucose 90 mg/dl Calcium Level 8.9 mg/dl Total Bilirubin 0.9 mg/dl Direct Bilirubin 0.4 mg/dl Aspartate Amino Transf (AST/SGOT) 141 U/L Alanine Aminotransferase (ALT/SGPT) 40 U/L Alkaline Phosphatase 300 U/L Total Protein 5.8 gm/dl Albumin 2.7 gm/dl Carcinoembryonic Antigen 2.6 ng/ml Test 02/02/18 12:05 02/02/18 16:41 Bedside Glucose 109 mg/dl 104 mg/dl Date/Time Source Procedure Growth Status 02/02/18 10:09 Stool Shiga Toxin Test Pending Received 02/02/18 10:09 Stool Stool Culture Pending Received 02/02/18 10:09 Stool C.difficile Toxin B Gene (PCR) - Final No C. difficile toxin B gene detected Complete Assessment & Plan RECURRENT DIARRHEA -- C diff negative stool cultures: negative -- recurrent, persistent diarrhea since last month GI consulted -- 02/02/18: s/p Colonoscopy to r/o Microscopic Colitis (+) Diverticulosis, Diverticulitis (+) Polyp 5mm Pathology pending -- start Cefepime + Flagyl IV (Cefepime to also cover for Pseudomonas UTI) -- diarrhea improving since admission PRN Imodium possible underlying Neuroendocrine Tumor? 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 -- Hg stable around 11 -- Fe 34 Fe supplement BID started -- monitor CAD status post CABG,s/p Stent -- (+) leg edema on admission Echo: -- Conclusions -- * Ejection Fraction = 55-60%. * The base posterior wall appears thinned and hypokinetic. * The base inferior wall is mildly hypokinetic. * The left atrium is moderately dilated. * Diastolic dysfunction, Grade II (pseudonormalization pattern). * Aortic valve sclerosis moderate, without significant aortic valvular stenosis. * There is mild mitral regurgitation. * There is mild tricuspid regurgitation. * The estimated systolic pulmonary arterial pressure is 42 mmHg. * Dilated inferior vena cava with reduced collapsability with sniff indicates an elevated right atrial pressure of 15 mmHg -- Doppler US: no DVT -- start Lasix 20mg po daily monitor and titrate daily -- continue Metoprolol, Lisinopril, Atorvastatin -- also needs to be on ASA daily HYPERTENSION within acceptable range continue Metoprolol, Lisinopril, Amlodipine DM2, diet controlled, well controlled -- ISS scale DVT prophylaxis Lovenox subQ --> held as patient had Colonoscopy with biopsy 02/02/18, for US guided liver biopsy tomorrow 02/03/18 resume accordingly Disposition lives with his son at home PT/OT ordered anticipate d/c home when medically stable, cleared by GI and Oncology ff up with Dr. Barbosa for PCP Dr. Figueroa for Urology Dr. Bailey for GI Dr. Elena Hermosillo for Oncology updated patient's Son Braydon at the bedside patient and son comfortable and agreeable with plan of care Current Inpatient Medications: Current Inpatient Medications Medications (Trade) Dose Ordered Sig/Ena Route Start Time Stop Time Status Last Admin Dose Admin Ioversol (Optiray 320) 100 ml UD PRN IV 01/31/18 00:45 02/04/18 00:44 Acetaminophen (Tylenol Tab) 650 mg Q4H PRN PO 01/31/18 00:30 03/02/18 00:29 02/01/18 03:39 650 MG Glucose (Glucose 40% Gel) 15-30 GRAMS 15 GRAMS... UD PRN PO 01/31/18 00:30 03/02/18 00:29 Glucose (Glucose Chew Tab) 4-8 Tablets 4 Tabl... UD PRN PO 01/31/18 00:30 03/02/18 00:29 Dextrose (Dextrose 50% 50ML Syringe) 25-50ML OF 50% DW IV FOR... UD PRN IV 01/31/18 00:30 03/02/18 00:29 Glucagon (Glucagon Inj) 1 mg UD PRN SQ 01/31/18 00:30 03/02/18 00:29 Prochlorperazine Edisylate 5 mg/ Syringe 5 ml @ 5 mls/min Q6H PRN IV 01/31/18 00:30 03/02/18 00:29 Tramadol HCl (Ultram Tab) not relieved by tylenol @ Q6H PRN PO 01/31/18 00:30 03/02/18 00:29 Sodium Chloride ([place] Nasal [place]) 2 sprays TID NA 01/31/18 08:00 03/02/18 08:59 02/02/18 14:28 2 SPRAYS Morphine Sulfate (MoRPHine SULFATE INJ) 2 mg Q3H PRN IV 01/31/18 00:30 02/14/18 00:29 Acetaminophen (Tylenol Tab) 650 mg HS PRN PO 01/31/18 00:30 03/02/18 00:29 Famotidine (Pepcid Tab) 40 mg HS PO 01/31/18 21:00 03/02/18 20:59 02/01/18 20:19 40 MG Lisinopril (Zestril Tab) 40 mg DAILY PO 01/31/18 08:00 03/02/18 08:59 02/02/18 11:14 40 MG Metoprolol Succinate (Toprol Xl Tab) 100 mg QAM PO 01/31/18 08:00 03/02/18 08:59 02/02/18 11:13 100 MG Mirabegron (Myrbetriq Er) 50 mg DAILY PO 01/31/18 08:00 03/02/18 08:59 02/02/18 11:13 50 MG Multivitamins (Multivitamin Tab) 1 tab QAM PO 01/31/18 08:00 03/02/18 08:59 02/02/18 11:13 1 TAB Bicalutamide (Casodex Tab) 50 mg DAILY PO 01/31/18 08:00 03/02/18 07:59 02/02/18 11:15 50 MG Miscellaneous (Iv Fluids Completed) 1 ea PRN PRN N/A 01/31/18 04:15 01/31/19 04:14 Insulin Aspart (novoLOG ASPART) SLIDING SCALE If C... ACHS SC 01/31/18 06:30 03/02/18 06:29 Amlodipine Besylate (Norvasc Tab) 10 mg HS PO 01/31/18 21:00 03/02/18 20:59 02/01/18 20:20 10 MG Miconazole Nitrate (Desenex Powder) 1 appln PRN PRN EXT 01/31/18 12:15 03/02/18 12:14 Loperamide HCl (Imodium Cap) 2 mg UD PRN PO 01/31/18 19:45 03/02/18 19:44 01/31/18 19:58 2 MG Polyethylene Glycol/ Electrolytes (Golytely Soln) 16 dose TODAY@2000 PO 02/01/18 20:00 03/03/18 19:59 02/01/18 20:21 16 DOSE Ferrous Sulfate (Feosol Tab) 325 mg BIDM PO 02/01/18 17:00 03/03/18 16:59 02/02/18 17:17 325 MG Cefepime HCl (Consult) 1 ea UD PRN N/A 02/02/18 12:37 03/04/18 12:36 Cefepime HCl 2000 mg/Syringe 20 ml @ 5 mls/min Q12H IV 02/02/18 14:00 02/12/18 13:59 02/02/18 14:28 5 MLS/MIN Metronidazole 500 mg/Prmx 100 ml @ 100 mls/hr Q8H IV 02/02/18 18:00 02/12/18 17:59 02/02/18 19:02 100 MLS/HR Furosemide (Lasix Tab) 20 mg QAM PO 02/03/18 08:00 03/05/18 07:59
[2018-02-02] MEDS ORDERED: NURSING VERBAL MED ORDER ONE (20:00)
[2018-02-02] MEDS ORDERED: POTASSIUM CHLORIDE 20 MEQ TABCR PO ONE (20:00)
[2018-02-02] MEDS: FAMOTIDINE 20 MG TAB PO SCH (21:16)
[2018-02-02 21:18] VITALS: BP 131/72; PULSE 99
[2018-02-02] MEDS: AMLODIPINE BESYLATE 5 MG TAB PO SCH (21:19)
[2018-02-02 23:10] VITALS: BP 121/66; PULSE 87; TEMP 36.4; O2SAT 94
[2018-02-03] VITALS (10 sets, daily range): BP systolic 120–156; BP diastolic 68–82; PULSE 78–100; TEMP 36.4–36.6; O2SAT 91–99
[2018-02-03] MEDS: CEFEPIME IV 2,000 MG in SYRINGE 7.5 ML IV SCH ×2 (01:40→13:39)
[2018-02-03] MEDS: METRONIDAZOLE / NSS 500 MG in PREMIXED NSS 100 ML IV SCH ×3 (01:40→17:32)
[2018-02-03] MEDS: LOPERAMIDE HCL 2 MG CAP PO PRN ×4 (02:19→15:48)
[2018-02-03 07:40] LABS: BASO % 0.2 %; BASO ABS # 0.02 K/uL (0-0.2); EOS ABS # 0.08 K/uL (0-0.5); HEMATOCRIT 36.1 % (42-52); HEMOGLOBIN 11.8 g/dL (14.0-18.0); IG# 0.02 K/uL (0.00-0.02); LYMPH % 9.5 %; LYMPH ABS # 0.79 K/uL (1.2-3.4); MEAN CELL VOLUME 96.8 fL (80-100); MEAN CORPUSCULAR HEMOGLOBIN 31.6 pg (25-34); MEAN CORPUSCULAR HGB CONC 32.7 g/dl (32-36); MONO % 11.6 %; MONO ABS # 0.97 K/uL (0.11-0.59); NEUT % 77.5 %; NEUT ABS # 6.47 K/uL (1.4-6.5); PLATELET COUNT 168 K/uL (130-400); RED CELL DISTRIBUTION WIDTH CV 14.8 % (11.5-14.5); WHITE BLOOD COUNT 8.35 K/uL (4.8-10.8)
[2018-02-03 08:14] LABS: ALBUMIN 2.7 gm/dl (3.4-5.0); CALCIUM 8.6 mg/dl (8.5-10.1); CREATININE 0.91 mg/dl (0.60-1.40); POTASSIUM 3.5 mmol/L (3.5-5.1)
[2018-02-03 08:17] LABS: TOTAL PROTEIN 5.8 gm/dl (6.4-8.2)
[2018-02-03] MEDS: INSULIN ASPART 100 UNITS/ML 3 ML PEN SC SCH ×4 (08:17→20:42)
[2018-02-03] MEDS: METOPROLOL SUCC 50MG EXT REL TAB PO SCH (08:17)
[2018-02-03] MEDS: FERROUS SULFATE 325 MG TAB PO SCH ×2 (08:18→17:33)
[2018-02-03] MEDS: FUROSEMIDE 20 MG TAB PO SCH (08:18)
[2018-02-03] MEDS: LISINOPRIL 40 MG TAB PO SCH (08:18)
[2018-02-03] MEDS: MIRABEGRON ER 25 MG TAB PO SCH (08:18)
[2018-02-03] MEDS: MULTIVITAMIN TAB PO SCH (08:18)
[2018-02-03] MEDS: SODIUM CHLORIDE 0.65% NA SOLN 45 ML (OCEAN) SCH ×3 (08:19→20:41)
[2018-02-03] MEDS: BICALUTAMIDE 50 MG TAB PO SCH (08:19)
--- NOTE | 2018-02-03 08:43 | Gastroenterology Progress Note ---
Progress Note Date of Service: Feb 03, 2018 Subjective Pt evaluation today including: conversation w/ patient, physical exam, chart review, lab review, review of inpatient medication list Pt tolerated solid breakfast today. Denies any n/v, abd pain. Still having loose stools, states up 3x last night. Denies any blood in stools. Review of Systems Constitutional: No fever, No chills Respiratory: No cough, No shortness of breath Cardiac: No chest pain Abdomen: + diarrhea, No pain, No nausea, No vomiting, No GI bleeding Medications Current Inpatient Medications Medications (Trade) Dose Ordered Sig/Ena Route Start Time Stop Time Status Last Admin Dose Admin Ioversol (Optiray 320) 100 ml UD PRN IV 01/31/18 00:45 02/04/18 00:44 Acetaminophen (Tylenol Tab) 650 mg Q4H PRN PO 01/31/18 00:30 03/02/18 00:29 02/01/18 03:39 650 MG Glucose (Glucose 40% Gel) 15-30 GRAMS 15 GRAMS... UD PRN PO 01/31/18 00:30 03/02/18 00:29 Glucose (Glucose Chew Tab) 4-8 Tablets 4 Tabl... UD PRN PO 01/31/18 00:30 03/02/18 00:29 Dextrose (Dextrose 50% 50ML Syringe) 25-50ML OF 50% DW IV FOR... UD PRN IV 01/31/18 00:30 03/02/18 00:29 Glucagon (Glucagon Inj) 1 mg UD PRN SQ 01/31/18 00:30 03/02/18 00:29 Prochlorperazine Edisylate 5 mg/ Syringe 5 ml @ 5 mls/min Q6H PRN IV 01/31/18 00:30 03/02/18 00:29 Tramadol HCl (Ultram Tab) not relieved by tylenol @ Q6H PRN PO 01/31/18 00:30 03/02/18 00:29 Sodium Chloride ([place] Nasal [place]) 2 sprays TID NA 01/31/18 08:00 03/02/18 08:59 02/03/18 08:19 2 SPRAYS Morphine Sulfate (MoRPHine SULFATE INJ) 2 mg Q3H PRN IV 01/31/18 00:30 02/14/18 00:29 Acetaminophen (Tylenol Tab) 650 mg HS PRN PO 01/31/18 00:30 03/02/18 00:29 Famotidine (Pepcid Tab) 40 mg HS PO 01/31/18 21:00 03/02/18 20:59 02/02/18 21:16 40 MG Lisinopril (Zestril Tab) 40 mg DAILY PO 01/31/18 08:00 03/02/18 08:59 02/03/18 08:18 40 MG Metoprolol Succinate (Toprol Xl Tab) 100 mg QAM PO 01/31/18 08:00 03/02/18 08:59 02/03/18 08:17 100 MG Mirabegron (Myrbetriq Er) 50 mg DAILY PO 01/31/18 08:00 03/02/18 08:59 02/03/18 08:18 50 MG Multivitamins (Multivitamin Tab) 1 tab QAM PO 01/31/18 08:00 03/02/18 08:59 02/03/18 08:18 1 TAB Bicalutamide (Casodex Tab) 50 mg DAILY PO 01/31/18 08:00 03/02/18 07:59 02/03/18 08:19 50 MG Miscellaneous (Iv Fluids Completed) 1 ea PRN PRN N/A 01/31/18 04:15 01/31/19 04:14 Insulin Aspart (novoLOG ASPART) SLIDING SCALE If C... ACHS SC 01/31/18 06:30 03/02/18 06:29 Amlodipine Besylate (Norvasc Tab) 10 mg HS PO 01/31/18 21:00 03/02/18 20:59 02/02/18 21:19 10 MG Miconazole Nitrate (Desenex Powder) 1 appln PRN PRN EXT 01/31/18 12:15 03/02/18 12:14 Loperamide HCl (Imodium Cap) 2 mg UD PRN PO 01/31/18 19:45 03/02/18 19:44 02/03/18 02:19 2 MG Ferrous Sulfate (Feosol Tab) 325 mg BIDM PO 02/01/18 17:00 03/03/18 16:59 02/03/18 08:18 325 MG Cefepime HCl (Consult) 1 ea UD PRN N/A 02/02/18 12:37 03/04/18 12:36 Cefepime HCl 2000 mg/Syringe 20 ml @ 5 mls/min Q12H IV 02/02/18 14:00 02/12/18 13:59 02/03/18 01:40 5 MLS/MIN Metronidazole 500 mg/Prmx 100 ml @ 100 mls/hr Q8H IV 02/02/18 18:00 02/12/18 17:59 02/03/18 01:40 100 MLS/HR Furosemide (Lasix Tab) 20 mg QAM PO 02/03/18 08:00 03/05/18 07:59 02/03/18 08:18 20 MG Objective Vital Signs Date Time Temp Pulse Resp B/P (MAP) Pulse Ox O2 Delivery O2 Flow Rate FiO2 02/03/18 06:35 36.4 90 18 156/82 (106) 94 Room Air 02/03/18 02:40 36.4 93 18 127/74 (91) 99 Room Air 02/02/18 23:45 Room Air 02/02/18 23:10 36.4 87 18 121/66 (84) 94 Room Air 02/02/18 21:18 99 131/72 (91) 02/02/18 16:49 Room Air 02/02/18 15:52 36.4 83 16 130/73 (92) 93 Room Air 02/02/18 11:12 36.3 104 16 138/84 (102) 92 Room Air 02/02/18 10:45 86 20 117/78 (91) 93 Room Air 02/02/18 10:30 84 20 111/58 (75) 93 Room Air 02/02/18 10:15 83 20 106/62 (77) 93 Room Air 02/02/18 09:18 36.6 93 20 121/66 (84) 93 Room Air Physical Exam General Appearance: WD/WN, no apparent distress Eyes: normal inspection, PERRL, EOMI Neck: supple, no JVD, trachea midline Respiratory/Chest: normal breath sounds, no respiratory distress, no accessory muscle use Cardiovascular: regular rate, rhythm, no gallop, no murmur Abdomen: normal bowel sounds, non tender, soft Extremities: normal inspection, no pedal edema, no calf tenderness Neurologic/Psych: alert, normal mood/affect, oriented x 3 Skin: normal color, no jaundice, no rash Laboratory Results Last 24 Hours Test 02/02/18 11:49 02/02/18 12:05 02/02/18 16:41 02/03/18 07:23 Carcinoembryonic Antigen 2.6 ng/ml Bedside Glucose 109 mg/dl 104 mg/dl White Blood Count 8.35 K/uL Red Blood Count 3.73 M/uL Hemoglobin 11.8 g/dL Hematocrit 36.1 % Mean Corpuscular Volume 96.8 fL Mean Corpuscular Hemoglobin 31.6 pg Mean Corpuscular Hemoglobin Concent 32.7 g/dl Platelet Count 168 K/uL Mean Platelet Volume 11.0 fL Neutrophils (%) (Auto) 77.5 % Lymphocytes (%) (Auto) 9.5 % Monocytes (%) (Auto) 11.6 % Eosinophils (%) (Auto) 1.0 % Basophils (%) (Auto) 0.2 % Neutrophils # (Auto) 6.47 K/uL Lymphocytes # (Auto) 0.79 K/uL Monocytes # (Auto) 0.97 K/uL Eosinophils # (Auto) 0.08 K/uL Basophils # (Auto) 0.02 K/uL RDW Standard Deviation 51.0 fL RDW Coefficient of Variation 14.8 % Immature Granulocyte % (Auto) 0.2 % Immature Granulocyte # (Auto) 0.02 K/uL Sodium Level 142 mmol/L Potassium Level 3.5 mmol/L Chloride Level 111 mmol/L Carbon Dioxide Level 24 mmol/L Anion Gap 7.0 mmol/L Blood Urea Nitrogen 12 mg/dl Creatinine 0.91 mg/dl Est Creatinine Clear Calc Drug Dose 70.8 ml/min Estimated GFR () 89.4 Estimated GFR (Non- 77.1 BUN/Creatinine Ratio 13.4 Random Glucose 92 mg/dl Calcium Level 8.6 mg/dl Total Bilirubin 0.7 mg/dl Direct Bilirubin 0.3 mg/dl Aspartate Amino Transf (AST/SGOT) 146 U/L Alanine Aminotransferase (ALT/SGPT) 39 U/L Alkaline Phosphatase 285 U/L Total Protein 5.8 gm/dl Albumin 2.7 gm/dl Test 02/03/18 07:51 Bedside Glucose 92 mg/dl Assessment and Plan Pt is a 82 y/o male, seen for diarrhea x 5 weeks. Previous trial of Dicyclomine not effective. Stool cx, Cdiff negative. 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 He underwent colonoscopy on 02/02, found to have diverticulitis on sigmoid colon currently on Flagyl and Cefepime; AVMs, hemorrhoids, one colon polyp, colon bx pending. Stool aspirate done, pending. Currently using Imodium for diarrhea. Of note he has hx of prostate ca on Casodex, during this admission found to be anemic and also noted to have liver & lung lesions consistent w mets. Heme/Onc following, and requesting a u/s guided liver bx which was already ordered by primary hospitalist. - F/U colonoscopy biopsy & stool aspirate results - Continue Imodium on PRN basis for now. - Continue current antibx for diverticulitis. - Heme/Onc following for prostate ca hx and evidence of lung/liver mets - Will follow Attg add (late entry): I interviewed and examined pt, reviewed chart and labs, agree with plan as above. He ocntinues to have diarrhea of unclear etiology - will follow response to abx, and use antidiarrheals as needed.
[2018-02-03] MEDS ORDERED: ACETAMINOPHEN 500 MG TAB PO PRN (11:00)
--- NOTE | 2018-02-03 11:25 | DIAGNOSTIC IMAGING REPORT ---
GUIDANCE NEEDLE PLACEMENT CLINICAL HISTORY: - Pain. Hepatic lesions. TECHNIQUE: Ultrasound guided COMPARISON STUDY: CT dated 01/30/2018 FINDINGS: Following description of procedure and informed consent, 2 passes with a 22-gauge needle were made to the left hepatic lobe. This is followed by a single pass with a 20-gauge core biopsy needle. There are no complications. Patient was transferred to observation status IMPRESSION: Successful left hepatic lobe biopsy The above report was generated using voice recognition software. It may contain grammatical, syntax or spelling errors. Electronically signed by: Ervin Benavides M.D. 02/03/2018 11:23 AM Dictated Date/Time: 02/03/2018 11:23 AM
--- NOTE | 2018-02-03 15:50 | Progress Note ---
Medicine Progress Note Date & Time of Visit: Feb 03, 2018 at 15:25 . Subjective CC: Follow-up visit for diarrhea, UTI, and other problem. HPI: Feels somewhat better. Still having loose stools without blood. Underwent liver biopsy today without incident. ROS: General- no fever, no chills Resp- no cough; no shortness of breath Cardiac- no chest pain, no edema GI- no nausea, no vomiting - no dysuria, no difficulty voiding . Objective Last 8 Hrs Date Time Temp Pulse Resp B/P (MAP) Pulse Ox O2 Delivery O2 Flow Rate FiO2 02/03/18 15:20 36.4 83 16 148/69 (95) 94 Room Air 02/03/18 13:30 36.5 81 16 137/73 (94) 94 Room Air 02/03/18 13:00 36.4 85 16 120/74 (89) 93 Room Air 02/03/18 12:34 36.4 86 16 129/68 (88) 91 Room Air 02/03/18 12:07 36.4 78 16 132/69 (90) 94 Room Air 02/03/18 11:47 36.4 82 16 133/70 (91) 93 Room Air 02/03/18 08:00 Room Air Physical Exam: General- lying in bed, no distress Lungs- clear to auscultation; no respiratory distress Cardiovascular- RRR, occasional ectopy; no murmur or gallop appreciated; no JVD ; 1+ pretibial edema Abdomen- + bowel sounds, soft, nontender Extremities- no cyanosis; no calf tenderness Neuro- alert, oriented Skin- warm & dry . Laboratory Results: Last 24 Hours Test 02/02/18 16:41 02/03/18 07:23 02/03/18 07:51 02/03/18 11:36 Bedside Glucose 104 mg/dl 92 mg/dl 129 mg/dl White Blood Count 8.35 K/uL Red Blood Count 3.73 M/uL Hemoglobin 11.8 g/dL Hematocrit 36.1 % Mean Corpuscular Volume 96.8 fL Mean Corpuscular Hemoglobin 31.6 pg Mean Corpuscular Hemoglobin Concent 32.7 g/dl Platelet Count 168 K/uL Mean Platelet Volume 11.0 fL Neutrophils (%) (Auto) 77.5 % Lymphocytes (%) (Auto) 9.5 % Monocytes (%) (Auto) 11.6 % Eosinophils (%) (Auto) 1.0 % Basophils (%) (Auto) 0.2 % Neutrophils # (Auto) 6.47 K/uL Lymphocytes # (Auto) 0.79 K/uL Monocytes # (Auto) 0.97 K/uL Eosinophils # (Auto) 0.08 K/uL Basophils # (Auto) 0.02 K/uL RDW Standard Deviation 51.0 fL RDW Coefficient of Variation 14.8 % Immature Granulocyte % (Auto) 0.2 % Immature Granulocyte # (Auto) 0.02 K/uL Sodium Level 142 mmol/L Potassium Level 3.5 mmol/L Chloride Level 111 mmol/L Carbon Dioxide Level 24 mmol/L Anion Gap 7.0 mmol/L Blood Urea Nitrogen 12 mg/dl Creatinine 0.91 mg/dl Est Creatinine Clear Calc Drug Dose 70.8 ml/min Estimated GFR () 89.4 Estimated GFR (Non- 77.1 BUN/Creatinine Ratio 13.4 Random Glucose 92 mg/dl Calcium Level 8.6 mg/dl Total Bilirubin 0.7 mg/dl Direct Bilirubin 0.3 mg/dl Aspartate Amino Transf (AST/SGOT) 146 U/L Alanine Aminotransferase (ALT/SGPT) 39 U/L Alkaline Phosphatase 285 U/L Total Protein 5.8 gm/dl Albumin 2.7 gm/dl Assessment & Plan DIARRHEA Presented with several weeks of diarrhea. Stool C. difficile PCR negative. Stool culture negative. Colonoscopy demonstrated sigmoid diverticulitis. Treat diverticulitis as discussed below. Anti-diarrheal meds PRN. DIVERTICULITIS Colonoscopy revealed diverticulitis in the sigmoid colon. Allergic to quinolones. Continue cefepime and metronidazole. UTI (present on admission) Status post Botox injection for hypertonic bladder. UA showed leukocyte esterase, 10-30 WBCs. Urine culture growing Pseudomonas aeruginosa. Allergic to quinolones. Continue therapy with cefepime. ACUTE KIDNEY INJURY Serum creatinine at time of admission was 1.37. Received IV fluids. Creatinine today = 0.91. Follow. LIVER & LUNG MASSES Noted on CT imaging; worrisome for metastatic disease. 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 Bone scan negative for metastatic disease. Status post liver biopsy. Results pending. CARCINOMA PROSTATE PSA = 0.042. Continue bicalutamide. CORONARY ARTERY DISEASE No anginal symptoms. Atorvastatin currently on hold. Continue metoprolol. Add aspirin if no contraindication. HYPERTENSION Continue metoprolol and lisinopril. DIABETES MELLITUS Blood sugars well controlled. Continue NovoLog coverage as needed. ANEMIA Hemoglobin 11.3 at time of admission and has remained stable. Serum iron 34, TIBC 259, transferrin 200, percent transferrin sat 12, B12 1528, folate 19. No gross GI bleeding. 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 Start iron therapy. Monitor H&H. VTE PROPHYLAXIS Enoxaparin held for liver biopsy. Resume tomorrow. DISPOSITION Expected discharge to home. Family Medicine follow-up with Dr. Barbosa. . Current Inpatient Medications: Current Inpatient Medications Medications (Trade) Dose Ordered Sig/Ena Route Start Time Stop Time Status Last Admin Dose Admin Ioversol (Optiray 320) 100 ml UD PRN IV 01/31/18 00:45 02/04/18 00:44 Acetaminophen (Tylenol Tab) 650 mg Q4H PRN PO 01/31/18 00:30 03/02/18 00:29 Future Hold 02/01/18 03:39 650 MG Glucose (Glucose 40% Gel) 15-30 GRAMS 15 GRAMS... UD PRN PO 01/31/18 00:30 03/02/18 00:29 Glucose (Glucose Chew Tab) 4-8 Tablets 4 Tabl... UD PRN PO 01/31/18 00:30 03/02/18 00:29 Dextrose (Dextrose 50% 50ML Syringe) 25-50ML OF 50% DW IV FOR... UD PRN IV 01/31/18 00:30 03/02/18 00:29 Glucagon (Glucagon Inj) 1 mg UD PRN SQ 01/31/18 00:30 03/02/18 00:29 Prochlorperazine Edisylate 5 mg/ Syringe 5 ml @ 5 mls/min Q6H PRN IV 01/31/18 00:30 03/02/18 00:29 Tramadol HCl (Ultram Tab) not relieved by tylenol @ Q6H PRN PO 01/31/18 00:30 03/02/18 00:29 Sodium Chloride ([place] Nasal [place]) 2 sprays TID NA 01/31/18 08:00 03/02/18 08:59 4/24/18 13:40 2 SPRAYS Morphine Sulfate (MoRPHine SULFATE INJ) 2 mg Q3H PRN IV 01/31/18 00:30 02/14/18 00:29 Acetaminophen (Tylenol Tab) 650 mg HS PRN PO 01/31/18 00:30 03/02/18 00:29 Future Hold Famotidine (Pepcid Tab) 40 mg HS PO 01/31/18 21:00 03/02/18 20:59 02/02/18 21:16 40 MG Lisinopril (Zestril Tab) 40 mg DAILY PO 01/31/18 08:00 03/02/18 08:59 02/03/18 08:18 40 MG Metoprolol Succinate (Toprol Xl Tab) 100 mg QAM PO 01/31/18 08:00 03/02/18 08:59 02/03/18 08:17 100 MG Mirabegron (Myrbetriq Er) 50 mg DAILY PO 01/31/18 08:00 03/02/18 08:59 02/03/18 08:18 50 MG Multivitamins (Multivitamin Tab) 1 tab QAM PO 01/31/18 08:00 03/02/18 08:59 02/03/18 08:18 1 TAB Bicalutamide (Casodex Tab) 50 mg DAILY PO 01/31/18 08:00 03/02/18 07:59 02/03/18 08:19 50 MG Miscellaneous (Iv Fluids Completed) 1 ea PRN PRN N/A 01/31/18 04:15 01/31/19 04:14 Insulin Aspart (novoLOG ASPART) SLIDING SCALE If C... ACHS SC 01/31/18 06:30 03/02/18 06:29 Amlodipine Besylate (Norvasc Tab) 10 mg HS PO 01/31/18 21:00 03/02/18 20:59 02/02/18 21:19 10 MG Miconazole Nitrate (Desenex Powder) 1 appln PRN PRN EXT 01/31/18 12:15 03/02/18 12:14 Loperamide HCl (Imodium Cap) 2 mg UD PRN PO 01/31/18 19:45 03/02/18 19:44 02/03/18 14:02 2 MG Ferrous Sulfate (Feosol Tab) 325 mg BIDM PO 02/01/18 17:00 03/03/18 16:59 02/03/18 08:18 325 MG Cefepime HCl (Consult) 1 ea UD PRN N/A 02/02/18 12:37 03/04/18 12:36 Cefepime HCl 2000 mg/Syringe 20 ml @ 5 mls/min Q12H IV 02/02/18 14:00 02/12/18 13:59 02/03/18 13:39 5 MLS/MIN Metronidazole 500 mg/Prmx 100 ml @ 100 mls/hr Q8H IV 02/02/18 18:00 02/12/18 17:59 02/03/18 11:32 100 MLS/HR Furosemide (Lasix Tab) 20 mg QAM PO 02/03/18 08:00 03/05/18 07:59 02/03/18 08:18 20 MG Acetaminophen (Tylenol Tab) 1,000 mg Q6H PRN PO 02/03/18 11:00 03/05/18 10:59
--- NOTE | 2018-02-03 20:13 | Hematology/Oncology Prog Note ---
Hematology/Onc Progress Note Date of Service Feb 03, 2018. Subjective I saw him at bedside in the evening, sitting comfortably in the bed, no increasing nausea or vomiting, no abdominal pain, still has some loose stool, no blood in the stool. No fever, hemodynamically he has remained stable. O 2 saturation on room air 94%. No wheezing, no night sweats. Earlier in the day he underwent biopsy of the liver, result pending. No complications. Random biopsy from the colon mucosa--> benign colonic mucosa, no other diagnostic abnormality noted (02/02/2018 close Bone scan--> negative. Blood workup done today, overall stable blood test, normal white blood cell count, stable hemoglobin level around 11.8, normal platelet count, abnormal liver function test noted with elevated AST, normal ALT and alkaline phosphatase with normal bili level. BUN/Creat: 12/0.9 Will wait for the biopsy result before we proceed for further workup and treatment options. Vital Signs Vital Signs Past 12 Hours Date Time Temp Pulse Resp B/P (MAP) Pulse Ox O2 Delivery O2 Flow Rate FiO2 02/03/18 16:23 Room Air 02/03/18 15:20 36.4 83 16 148/69 (95) 94 Room Air 02/03/18 13:30 36.5 81 16 137/73 (94) 94 Room Air 02/03/18 13:00 36.4 85 16 120/74 (89) 93 Room Air 02/03/18 12:34 36.4 86 16 129/68 (88) 91 Room Air 02/03/18 12:07 36.4 78 16 132/69 (90) 94 Room Air 02/03/18 11:47 36.4 82 16 133/70 (91) 93 Room Air
[2018-02-03] MEDS: FAMOTIDINE 20 MG TAB PO SCH (20:44)
[2018-02-03] MEDS: AMLODIPINE BESYLATE 5 MG TAB PO SCH (20:44)
[2018-02-03] MEDS ORDERED: DIPHENOXYLATE/ATROPINE 2.5/0.025MG TAB PO ONE (21:00)
[2018-02-04] VITALS (10 sets, daily range): BP systolic 111–138; BP diastolic 64–76; PULSE 78–101; TEMP 36.4–36.7; O2SAT 90–94
[2018-02-04] MEDS: METRONIDAZOLE / NSS 500 MG in PREMIXED NSS 100 ML IV SCH ×3 (01:45→17:47)
[2018-02-04] MEDS: CEFEPIME IV 2,000 MG in SYRINGE 7.5 ML IV SCH ×2 (01:47→13:49)
[2018-02-04] MEDS: FUROSEMIDE 20 MG TAB PO SCH (07:31)
[2018-02-04] MEDS: METOPROLOL SUCC 50MG EXT REL TAB PO SCH (07:31)
[2018-02-04] MEDS: LISINOPRIL 40 MG TAB PO SCH (07:31)
[2018-02-04] MEDS: MULTIVITAMIN TAB PO SCH (07:31)
[2018-02-04] MEDS: MIRABEGRON ER 25 MG TAB PO SCH (07:31)
[2018-02-04] MEDS: TRAMADOL HCL 50 MG TAB PO PRN (07:34)
[2018-02-04 07:53] LABS: BASO % 0.4 %; BASO ABS # 0.03 K/uL (0-0.2); EOS % 1.4 %; EOS ABS # 0.11 K/uL (0-0.5); HEMATOCRIT 36.5 % (42-52); HEMOGLOBIN 11.8 g/dL (14.0-18.0); IG# 0.02 K/uL (0.00-0.02); LYMPH % 9.1 %; LYMPH ABS # 0.73 K/uL (1.2-3.4); MEAN CELL VOLUME 96.3 fL (80-100); MEAN CORPUSCULAR HEMOGLOBIN 31.1 pg (25-34); MEAN CORPUSCULAR HGB CONC 32.3 g/dl (32-36); MONO % 13.3 %; MONO ABS # 1.07 K/uL (0.11-0.59); NEUT % 75.6 %; NEUT ABS # 6.07 K/uL (1.4-6.5); PLATELET COUNT 156 K/uL (130-400); RED CELL DISTRIBUTION WIDTH CV 14.8 % (11.5-14.5); RED CELL DISTRIBUTION WIDTH SD 51.3 fL (36.4-46.3); WHITE BLOOD COUNT 8.03 K/uL (4.8-10.8)
[2018-02-04 08:17] LABS: CALCIUM 8.8 mg/dl (8.5-10.1); CREATININE 0.9 mg/dl (0.60-1.40); POTASSIUM 3.5 mmol/L (3.5-5.1)
[2018-02-04] MEDS: INSULIN ASPART 100 UNITS/ML 3 ML PEN SC SCH ×4 (09:01→21:00)
[2018-02-04] MEDS: SODIUM CHLORIDE 0.65% NA SOLN 45 ML (OCEAN) SCH ×3 (09:02→19:41)
[2018-02-04] MEDS: ASPIRIN 81 MG ECTAB PO SCH (09:02)
[2018-02-04] MEDS: ENOXAPARIN 40 MG/0.4 ML SYR SQ SCH (09:03)
[2018-02-04] MEDS: BICALUTAMIDE 50 MG TAB PO SCH (09:07)
--- NOTE | 2018-02-04 12:07 | Gastroenterology Progress Note ---
Progress Note Date of Service: Feb 04, 2018 Subjective Pt evaluation today including: conversation w/ patient, physical exam, chart review, lab review, review of studies, review of inpatient medication list Tolerating regular meals without abdominal pain, nausea, or vomiting. Noted still high frequency of bm's. Review of Systems Constitutional: No fever, No chills Respiratory: No cough, No sputum Cardiac: No chest pain Abdomen: + see HPI Medications Current Inpatient Medications Medications (Trade) Dose Ordered Sig/Ena Route Start Time Stop Time Status Last Admin Dose Admin Acetaminophen (Tylenol Tab) 650 mg Q4H PRN PO 01/31/18 00:30 03/02/18 00:29 Future Hold 02/01/18 03:39 650 MG Glucose (Glucose 40% Gel) 15-30 GRAMS 15 GRAMS... UD PRN PO 01/31/18 00:30 03/02/18 00:29 Glucose (Glucose Chew Tab) 4-8 Tablets 4 Tabl... UD PRN PO 01/31/18 00:30 03/02/18 00:29 Dextrose (Dextrose 50% 50ML Syringe) 25-50ML OF 50% DW IV FOR... UD PRN IV 01/31/18 00:30 03/02/18 00:29 Glucagon (Glucagon Inj) 1 mg UD PRN SQ 01/31/18 00:30 03/02/18 00:29 Prochlorperazine Edisylate 5 mg/ Syringe 5 ml @ 5 mls/min Q6H PRN IV 01/31/18 00:30 03/02/18 00:29 Tramadol HCl (Ultram Tab) not relieved by tylenol @ Q6H PRN PO 01/31/18 00:30 03/02/18 00:29 02/04/18 07:34 50 MG Sodium Chloride ([place] Nasal [place]) 2 sprays TID NA 01/31/18 08:00 03/02/18 08:59 02/04/18 09:02 2 SPRAYS Morphine Sulfate (MoRPHine SULFATE INJ) 2 mg Q3H PRN IV 01/31/18 00:30 02/14/18 00:29 Acetaminophen (Tylenol Tab) 650 mg HS PRN PO 01/31/18 00:30 03/02/18 00:29 Future Hold Famotidine (Pepcid Tab) 40 mg HS PO 01/31/18 21:00 03/02/18 20:59 02/03/18 20:44 40 MG Lisinopril (Zestril Tab) 40 mg DAILY PO 01/31/18 08:00 03/02/18 08:59 02/04/18 07:31 40 MG Metoprolol Succinate (Toprol Xl Tab) 100 mg QAM PO 01/31/18 08:00 03/02/18 08:59 02/04/18 07:31 100 MG Mirabegron (Myrbetriq Er) 50 mg DAILY PO 01/31/18 08:00 03/02/18 08:59 02/04/18 07:31 50 MG Multivitamins (Multivitamin Tab) 1 tab QAM PO 01/31/18 08:00 03/02/18 08:59 02/04/18 07:31 1 TAB Bicalutamide (Casodex Tab) 50 mg DAILY PO 01/31/18 08:00 03/02/18 07:59 02/04/18 09:07 50 MG Miscellaneous (Iv Fluids Completed) 1 ea PRN PRN N/A 01/31/18 04:15 01/31/19 04:14 Insulin Aspart (novoLOG ASPART) SLIDING SCALE If C... ACHS SC 01/31/18 06:30 03/02/18 06:29 Amlodipine Besylate (Norvasc Tab) 10 mg HS PO 01/31/18 21:00 03/02/18 20:59 02/03/18 20:44 10 MG Miconazole Nitrate (Desenex Powder) 1 appln PRN PRN EXT 01/31/18 12:15 03/02/18 12:14 Loperamide HCl (Imodium Cap) 2 mg UD PRN PO 01/31/18 19:45 03/02/18 19:44 02/03/18 15:48 2 MG Cefepime HCl (Consult) 1 ea UD PRN N/A 02/02/18 12:37 03/04/18 12:36 Cefepime HCl 2000 mg/Syringe 20 ml @ 5 mls/min Q12H IV 02/02/18 14:00 02/12/18 13:59 02/04/18 01:47 5 MLS/MIN Metronidazole 500 mg/Prmx 100 ml @ 100 mls/hr Q8H IV 02/02/18 18:00 02/12/18 17:59 02/04/18 10:20 100 MLS/HR Furosemide (Lasix Tab) 20 mg QAM PO 02/03/18 08:00 03/05/18 07:59 02/04/18 07:31 20 MG Acetaminophen (Tylenol Tab) 1,000 mg Q6H PRN PO 02/03/18 11:00 03/05/18 10:59 Enoxaparin Sodium (Lovenox Inj) 40 mg QAM SQ 02/04/18 08:00 03/06/18 07:59 02/04/18 09:03 40 MG Aspirin (Ecotrin Tab) 81 mg QAM PO 02/04/18 08:00 03/06/18 07:59 02/04/18 09:02 81 MG Ferrous Sulfate (Feosol Tab) 325 mg DAILY@1200 PO 02/04/18 12:00 03/06/18 11:59 Ascorbic Acid (Vitamin C Tab) 500 mg DAILY@1200 PO 02/04/18 12:00 03/06/18 11:59 Objective Vital Signs Date Time Temp Pulse Resp B/P (MAP) Pulse Ox O2 Delivery O2 Flow Rate FiO2 02/04/18 11:45 83 18 114/75 (88) 93 Room Air 02/04/18 11:26 36.6 94 16 121/68 (85) 92 Room Air 02/04/18 08:45 90 Room Air 02/04/18 07:33 36.7 101 16 135/76 (95) 90 Room Air 02/04/18 00:16 36.5 89 20 118/66 (83) 92 Room Air 02/04/18 00:00 Room Air 02/03/18 20:46 36.6 100 16 131/71 (91) 92 Room Air 02/03/18 20:43 94 131/71 (91) 02/03/18 16:23 Room Air 02/03/18 15:20 36.4 83 16 148/69 (95) 94 Room Air 02/03/18 13:30 36.5 81 16 137/73 (94) 94 Room Air 02/03/18 13:00 36.4 85 16 120/74 (89) 93 Room Air 02/03/18 12:34 36.4 86 16 129/68 (88) 91 Room Air 02/03/18 12:07 36.4 78 16 132/69 (90) 94 Room Air Physical Exam General Appearance: WD/WN, no apparent distress Eyes: PERRL Respiratory/Chest: chest non-tender, lungs clear, normal breath sounds, no respiratory distress, no accessory muscle use Cardiovascular: regular rate, rhythm, no edema, no gallop, no JVD, no murmur Abdomen: normal bowel sounds, non tender, soft Neurologic/Psych: senior financial consultant II-XII nml as tested, no motor/sensory deficits, alert Skin: normal color Laboratory Results Last 24 Hours Test 02/03/18 16:48 02/03/18 20:37 02/04/18 07:35 02/04/18 07:51 Bedside Glucose 97 mg/dl 126 mg/dl 86 mg/dl White Blood Count 8.03 K/uL Red Blood Count 3.79 M/uL Hemoglobin 11.8 g/dL Hematocrit 36.5 % Mean Corpuscular Volume 96.3 fL Mean Corpuscular Hemoglobin 31.1 pg Mean Corpuscular Hemoglobin Concent 32.3 g/dl Platelet Count 156 K/uL Mean Platelet Volume 11.0 fL Neutrophils (%) (Auto) 75.6 % Lymphocytes (%) (Auto) 9.1 % Monocytes (%) (Auto) 13.3 % Eosinophils (%) (Auto) 1.4 % Basophils (%) (Auto) 0.4 % Neutrophils # (Auto) 6.07 K/uL Lymphocytes # (Auto) 0.73 K/uL Monocytes # (Auto) 1.07 K/uL Eosinophils # (Auto) 0.11 K/uL Basophils # (Auto) 0.03 K/uL RDW Standard Deviation 51.3 fL RDW Coefficient of Variation 14.8 % Immature Granulocyte % (Auto) 0.2 % Immature Granulocyte # (Auto) 0.02 K/uL Sodium Level 141 mmol/L Potassium Level 3.5 mmol/L Chloride Level 111 mmol/L Carbon Dioxide Level 23 mmol/L Anion Gap 8.0 mmol/L Blood Urea Nitrogen 13 mg/dl Creatinine 0.90 mg/dl Est Creatinine Clear Calc Drug Dose 71.6 ml/min Estimated GFR () 90.6 Estimated GFR (Non- 78.2 BUN/Creatinine Ratio 14.2 Random Glucose 91 mg/dl Calcium Level 8.8 mg/dl Assessment and Plan Pt is a 82 y/o male, seen for diarrhea x 5 weeks. Previous trial of Dicyclomine not effective. Stool cx, Cdiff negative. 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 He underwent colonoscopy on 02/02, found to have diverticulitis on sigmoid colon currently on Flagyl and Cefepime; AVMs, hemorrhoids, one colon polyp, colon bx pending. Stool aspirate done, negative. Currently using Imodium for diarrhea. Still with high frequency of bm's though tolerating meals without pain, nausea, vomiting. Of note he has hx of prostate ca on Casodex, during this admission found to be anemic and also noted to have liver & lung lesions consistent w mets. Heme/Onc following, and requesting a u/s guided liver bx which was already ordered by primary hospitalist. - Continue Imodium on PRN basis for now. Add Lomotil 1 tab tid. - Continue current antibx for diverticulitis. - Heme/Onc following for prostate ca hx and evidence of lung/liver mets - Will follow Attg add (late entry): I interviewed and examined pt, reviewed chart and labs, agree with plan as above. Pt with persistent diarrhea, although etiology remains unclear. Follow response to Lomotil.
[2018-02-04] MEDS: FERROUS SULFATE 325 MG TAB PO SCH (12:18)
[2018-02-04] MEDS: ASCORBIC ACID 500 MG TAB PO SCH (12:19)
[2018-02-04] MEDS: DIPHENOXYLATE/ATROPINE 2.5/0.025MG TAB PO SCH ×2 (15:17→19:41)
[2018-02-04] MEDS: FAMOTIDINE 20 MG TAB PO SCH (19:42)
[2018-02-04] MEDS: AMLODIPINE BESYLATE 5 MG TAB PO SCH (19:44)
--- NOTE | 2018-02-04 20:29 | Progress Note ---
Medicine Progress Note Date & Time of Visit: Feb 04, 2018 at 10:10 . Subjective CC: Follow-up visit for diarrhea, UTI, liver / lung lesions, and other problem. HPI: Tired. Needs assistance with activities. Experiencing some mild-moderate discomfort from liver biopsies yesterday. Received Lomotil last night; diarrhea less frequent. No nausea or vomiting. Depressed, discouraged. ROS: General- no fever, no chills Resp- no cough; no shortness of breath Cardiac- no chest pain, no edema GI- as noted above in HPI - no dysuria, no difficulty voiding . Objective Last 8 Hrs Date Time Temp Pulse Resp B/P (MAP) Pulse Ox O2 Delivery O2 Flow Rate FiO2 02/04/18 19:47 88 20 138/73 (94) 93 Room Air 02/04/18 19:45 36.6 84 20 119/65 (83) 93 Room Air 02/04/18 15:56 93 Room Air 02/04/18 15:26 36.4 78 18 111/64 (80) 94 Physical Exam: General- lying in bed, no distress Lungs- clear to auscultation; no respiratory distress Cardiovascular- RRR; no murmur or gallop appreciated; no JVD; 1+ pretibial edema Abdomen- + bowel sounds, soft, nontender Extremities- no cyanosis; no calf tenderness Neuro- alert, oriented Skin- warm & dry . Laboratory Results: Last 24 Hours Test 02/03/18 20:37 02/04/18 07:35 02/04/18 07:51 02/04/18 12:04 Bedside Glucose 126 mg/dl 86 mg/dl 109 mg/dl White Blood Count 8.03 K/uL Red Blood Count 3.79 M/uL Hemoglobin 11.8 g/dL Hematocrit 36.5 % Mean Corpuscular Volume 96.3 fL Mean Corpuscular Hemoglobin 31.1 pg Mean Corpuscular Hemoglobin Concent 32.3 g/dl Platelet Count 156 K/uL Mean Platelet Volume 11.0 fL Neutrophils (%) (Auto) 75.6 % Lymphocytes (%) (Auto) 9.1 % Monocytes (%) (Auto) 13.3 % Eosinophils (%) (Auto) 1.4 % Basophils (%) (Auto) 0.4 % Neutrophils # (Auto) 6.07 K/uL Lymphocytes # (Auto) 0.73 K/uL Monocytes # (Auto) 1.07 K/uL Eosinophils # (Auto) 0.11 K/uL Basophils # (Auto) 0.03 K/uL RDW Standard Deviation 51.3 fL RDW Coefficient of Variation 14.8 % Immature Granulocyte % (Auto) 0.2 % Immature Granulocyte # (Auto) 0.02 K/uL Sodium Level 141 mmol/L Potassium Level 3.5 mmol/L Chloride Level 111 mmol/L Carbon Dioxide Level 23 mmol/L Anion Gap 8.0 mmol/L Blood Urea Nitrogen 13 mg/dl Creatinine 0.90 mg/dl Est Creatinine Clear Calc Drug Dose 71.6 ml/min Estimated GFR () 90.6 Estimated GFR (Non- 78.2 BUN/Creatinine Ratio 14.2 Random Glucose 91 mg/dl Calcium Level 8.8 mg/dl Test 02/04/18 16:30 Bedside Glucose 137 mg/dl Assessment & Plan DIARRHEA Presented with several weeks of diarrhea. Stool C. difficile PCR negative. Stool culture negative. Colonoscopy demonstrated sigmoid diverticulitis. Management of diverticulitis as discussed below. Anti-diarrheal meds PRN; diphenoxylate/atropine seems to be more effective than loperamide. DIVERTICULITIS Colonoscopy revealed diverticulitis in the sigmoid colon. Allergic to quinolones. Continue cefepime and metronidazole. UTI (present on admission) Status post Botox injection for hypertonic bladder. UA showed leukocyte esterase, 10-30 WBCs. Urine culture growing Pseudomonas aeruginosa. Allergic to quinolones. Continue therapy with cefepime. ACUTE KIDNEY INJURY Serum creatinine at time of admission was 1.37. Received IV fluids. Creatinine today = 0.90. Follow. LIVER & LUNG MASSES Noted on CT imaging; worrisome for metastatic disease. 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 Bone scan negative for metastatic disease. Status post liver biopsy 02/04; results pending. CARCINOMA PROSTATE PSA = 0.042. Continue bicalutamide. CORONARY ARTERY DISEASE No anginal symptoms. Atorvastatin currently on hold. Continue metoprolol. Add aspirin if no contraindication. HYPERTENSION Continue metoprolol and lisinopril. DIABETES MELLITUS Blood sugars well controlled. Fasting blood sugar this morning = 86. Continue NovoLog coverage as needed. ANEMIA Hemoglobin 11.3 at time of admission and has remained stable. Serum iron 34, TIBC 259, transferrin 200, percent transferrin sat 12, B12 1528, folate 19. No gross GI bleeding. 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 Start iron therapy. Monitor H&H. GENERAL DEBILITATION Multifactorial. PT / OT. VTE PROPHYLAXIS SQ enoxaparin. Ambulate as able. DISPOSITION To be determined. Functional status poor. May need skilled care. Family Medicine follow-up with Dr. Barbosa. . Current Inpatient Medications: Current Inpatient Medications Medications (Trade) Dose Ordered Sig/Ena Route Start Time Stop Time Status Last Admin Dose Admin Acetaminophen (Tylenol Tab) 650 mg Q4H PRN PO 01/31/18 00:30 03/02/18 00:29 Future Hold 02/01/18 03:39 650 MG Glucose (Glucose 40% Gel) 15-30 GRAMS 15 GRAMS... UD PRN PO 01/31/18 00:30 03/02/18 00:29 Glucose (Glucose Chew Tab) 4-8 Tablets 4 Tabl... UD PRN PO 01/31/18 00:30 03/02/18 00:29 Dextrose (Dextrose 50% 50ML Syringe) 25-50ML OF 50% DW IV FOR... UD PRN IV 01/31/18 00:30 03/02/18 00:29 Glucagon (Glucagon Inj) 1 mg UD PRN SQ 01/31/18 00:30 03/02/18 00:29 Prochlorperazine Edisylate 5 mg/ Syringe 5 ml @ 5 mls/min Q6H PRN IV 01/31/18 00:30 03/02/18 00:29 Tramadol HCl (Ultram Tab) not relieved by tylenol @ Q6H PRN PO 01/31/18 00:30 03/02/18 00:29 02/04/18 07:34 50 MG Sodium Chloride ([place] Nasal [place]) 2 sprays TID NA 01/31/18 08:00 03/02/18 08:59 02/04/18 19:41 2 SPRAYS Morphine Sulfate (MoRPHine SULFATE INJ) 2 mg Q3H PRN IV 01/31/18 00:30 02/14/18 00:29 Acetaminophen (Tylenol Tab) 650 mg HS PRN PO 01/31/18 00:30 03/02/18 00:29 Future Hold Famotidine (Pepcid Tab) 40 mg HS PO 01/31/18 21:00 03/02/18 20:59 02/04/18 19:42 40 MG Lisinopril (Zestril Tab) 40 mg DAILY PO 01/31/18 08:00 03/02/18 08:59 02/04/18 07:31 40 MG Metoprolol Succinate (Toprol Xl Tab) 100 mg QAM PO 01/31/18 08:00 03/02/18 08:59 02/04/18 07:31 100 MG Mirabegron (Myrbetriq Er) 50 mg DAILY PO 01/31/18 08:00 03/02/18 08:59 02/04/18 07:31 50 MG Multivitamins (Multivitamin Tab) 1 tab QAM PO 01/31/18 08:00 03/02/18 08:59 02/04/18 07:31 1 TAB Bicalutamide (Casodex Tab) 50 mg DAILY PO 01/31/18 08:00 03/02/18 07:59 02/04/18 09:07 50 MG Miscellaneous (Iv Fluids Completed) 1 ea PRN PRN N/A 01/31/18 04:15 01/31/19 04:14 Insulin Aspart (novoLOG ASPART) SLIDING SCALE If C... ACHS SC 01/31/18 06:30 03/02/18 06:29 Amlodipine Besylate (Norvasc Tab) 10 mg HS PO 01/31/18 21:00 03/02/18 20:59 02/04/18 19:44 10 MG Miconazole Nitrate (Desenex Powder) 1 appln PRN PRN EXT 01/31/18 12:15 03/02/18 12:14 Loperamide HCl (Imodium Cap) 2 mg UD PRN PO 01/31/18 19:45 03/02/18 19:44 02/03/18 15:48 2 MG Cefepime HCl (Consult) 1 ea UD PRN N/A 02/02/18 12:37 03/04/18 12:36 Cefepime HCl 2000 mg/Syringe 20 ml @ 5 mls/min Q12H IV 02/02/18 14:00 02/12/18 13:59 02/04/18 13:49 5 MLS/MIN Metronidazole 500 mg/Prmx 100 ml @ 100 mls/hr Q8H IV 02/02/18 18:00 02/12/18 17:59 02/04/18 17:47 100 MLS/HR Furosemide (Lasix Tab) 20 mg QAM PO 02/03/18 08:00 03/05/18 07:59 02/04/18 07:31 20 MG Acetaminophen (Tylenol Tab) 1,000 mg Q6H PRN PO 02/03/18 11:00 03/05/18 10:59 Enoxaparin Sodium (Lovenox Inj) 40 mg QAM SQ 02/04/18 08:00 03/06/18 07:59 02/04/18 09:03 40 MG Aspirin (Ecotrin Tab) 81 mg QAM PO 02/04/18 08:00 03/06/18 07:59 02/04/18 09:02 81 MG Ferrous Sulfate (Feosol Tab) 325 mg DAILY@1200 PO 02/04/18 12:00 03/06/18 11:59 02/04/18 12:18 325 MG Ascorbic Acid (Vitamin C Tab) 500 mg DAILY@1200 PO 02/04/18 12:00 03/06/18 11:59 02/04/18 12:19 500 MG Diphenoxylate HCl/ Atropine (Lomotil Tab) 1 tab TID PO 02/04/18 14:00 03/06/18 13:59 02/04/18 19:41 1 TAB
--- NOTE | 2018-02-04 21:16 | Hematology/Oncology Prog Note ---
Hematology/Onc Progress Note Date of Service Feb 04, 2018. Subjective I saw him at bedside in the evening, sitting comfortably, diarrhea present, stool for C difficile negative, receiving anti diarrheal medications on p.r.n. basis, improvement of the kidney function noted. 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 Treatment for that would be systemic chemotherapy. Typically chemotherapy in the form of etoposide and carboplatin is used for stage IV small cell cancer. Currently IV etoposide is not readily available, (national shortage). In that case, we could consider for oral etoposide. Blood workup done on 02/03/2018: -AST 146, ALT 39, alkaline phosphatase 285, Total bilirubin: 0.7. Serum creatinine level 0.91 -sodium 142. I would like to get LDH, uric acid level. Vital Signs Vital Signs Past 12 Hours Date Time Temp Pulse Resp B/P (MAP) Pulse Ox O2 Delivery O2 Flow Rate FiO2 02/04/18 19:47 88 20 138/73 (94) 93 Room Air 02/04/18 19:45 36.6 84 20 119/65 (83) 93 Room Air 02/04/18 15:56 93 Room Air 02/04/18 15:26 36.4 78 18 111/64 (80) 94 02/04/18 11:45 83 18 114/75 (88) 93 Room Air 02/04/18 11:26 36.6 94 16 121/68 (85) 92 Room Air
[2018-02-05] VITALS (7 sets, daily range): BP systolic 101–162; BP diastolic 49–73; PULSE 59–129; TEMP 36.4–36.7; O2SAT 90–96
[2018-02-05] MEDS: METRONIDAZOLE / NSS 500 MG in PREMIXED NSS 100 ML IV SCH ×3 (01:57→17:37)
[2018-02-05] MEDS: CEFEPIME IV 2,000 MG in SYRINGE 7.5 ML IV SCH ×2 (01:59→14:11)
[2018-02-05 07:35] LABS: BASO % 0.3 %; BASO ABS # 0.02 K/uL (0-0.2); EOS % 1.2 %; EOS ABS # 0.09 K/uL (0-0.5); HEMATOCRIT 35.3 % (42-52); HEMOGLOBIN 11.3 g/dL (14.0-18.0); IG# 0.02 K/uL (0.00-0.02); LYMPH % 10.5 %; MEAN CELL VOLUME 97.2 fL (80-100); MEAN CORPUSCULAR HEMOGLOBIN 31.1 pg (25-34); MEAN PLATELET VOLUME 11.4 fL (7.4-10.4); MONO % 12.6 %; MONO ABS # 0.96 K/uL (0.11-0.59); NEUT % 75.1 %; NEUT ABS # 5.74 K/uL (1.4-6.5); PLATELET COUNT 171 K/uL (130-400); RED CELL DISTRIBUTION WIDTH CV 15.1 % (11.5-14.5); RED CELL DISTRIBUTION WIDTH SD 52.7 fL (36.4-46.3); WHITE BLOOD COUNT 7.63 K/uL (4.8-10.8)
[2018-02-05] MEDS: SODIUM CHLORIDE 0.65% NA SOLN 45 ML (OCEAN) SCH ×3 (07:42→20:00)
[2018-02-05] MEDS: METOPROLOL SUCC 50MG EXT REL TAB PO SCH (07:43)
[2018-02-05] MEDS: MULTIVITAMIN TAB PO SCH (07:43)
[2018-02-05] MEDS: MIRABEGRON ER 25 MG TAB PO SCH (07:44)
[2018-02-05] MEDS: LISINOPRIL 40 MG TAB PO SCH (07:44)
[2018-02-05] MEDS: FUROSEMIDE 20 MG TAB PO SCH (07:44)
[2018-02-05] MEDS: ASPIRIN 81 MG ECTAB PO SCH (07:44)
[2018-02-05] MEDS: DIPHENOXYLATE/ATROPINE 2.5/0.025MG TAB PO SCH (07:44)
[2018-02-05] MEDS: INSULIN ASPART 100 UNITS/ML 3 ML PEN SC SCH ×4 (07:45→20:49)
[2018-02-05 08:05] LABS: CALCIUM 8.7 mg/dl (8.5-10.1); CREATININE 0.95 mg/dl (0.60-1.40); POTASSIUM 3.8 mmol/L (3.5-5.1)
[2018-02-05] MEDS: BICALUTAMIDE 50 MG TAB PO SCH (08:29)
[2018-02-05] MEDS: ENOXAPARIN 40 MG/0.4 ML SYR SQ SCH (08:30)
[2018-02-05] MEDS: ASCORBIC ACID 500 MG TAB PO SCH (12:10)
[2018-02-05] MEDS: FERROUS SULFATE 325 MG TAB PO SCH (12:10)
--- NOTE | 2018-02-05 13:05 | Progress Note ---
Progress Note Date of Service Feb 05, 2018. (Caitlin Soto CRNP) Progress Note GI quick note: Pt is a 82 y/o male, seen for diarrhea x 5 weeks. Previous trial of Dicyclomine not effective. Stool cx, Cdiff negative. 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 He underwent colonoscopy on 02/02, found to have diverticulitis on sigmoid colon currently on Flagyl and Cefepime; AVMs, hemorrhoids, one colon polyp, colon bx pending. Stool aspirate done, negative. Currently using Imodium for diarrhea. Still with high frequency of bm's though tolerating meals without pain, nausea, vomiting. Of note he has hx of prostate ca on Casodex, during this admission found to be anemic and also noted to have liver & lung lesions consistent w mets. Heme/Onc following, and requesting a u/s guided liver bx which was already ordered by primary hospitalist. Pt not seen today, but chart reviewed. BM frequency reduced. Would continue Lomotil and titrate dose for diarrhea control. Please call if new questions/ concerns arise. Addendum: spoke with Dr. Anderson, Lomotil stopped due to confusion. He is having persistent diarrhea. Will try Colestipol 1g BID. Will also obtain carcinoid marker (urine 24 hr, 5HIAA). (Caitlin Soto CRNP) Attg add: I interviewed and examined pt, reviewed chart and labs. Pt with persistent diarrhea without clear etiology - abx related? portal colopathy? Liver bx shows neuroendocrine tumor - possible carcinoid? Empiric colestid, check carcinoid markers. (Terry Bailey M.D.)
[2018-02-05] MEDS ORDERED: FLUTICASONE PROPIONATE NA SPR 16 GM BTL ONE (13:13)
[2018-02-05] MEDS: COLESTIPOL HCL 1 GM TAB PO SCH (20:47)
[2018-02-05] MEDS: FAMOTIDINE 20 MG TAB PO SCH (20:48)
[2018-02-05] MEDS: AMLODIPINE BESYLATE 5 MG TAB PO SCH (20:48)
[2018-02-05] MEDS: FLUTICASONE PROPIONATE NA SPR 16 GM BTL SCH (20:50)
--- NOTE | 2018-02-05 20:56 | Progress Note ---
Medicine Progress Note Date & Time of Visit: Feb 05, 2018 at 10:00 . Subjective CC: Follow-up visit for diarrhea, UTI, liver / lung lesions, and other problem. HPI: Patient initially felt that Lomotil is helping to decrease frequency of loose stools. However, still having loose stools today. Son concern that the patient was confused earlier this morning. No abdominal pain, nausea, vomiting. Experiencing some discomfort in his right ear as well as sinus congestion. ROS: General- no fever, no chills Resp- no cough; no shortness of breath Cardiac- no chest pain, no edema GI- as noted above in HPI - no dysuria, no difficulty voiding . Objective @ 07: 59 temp 36.6, pulse 90, respirations 16, blood pressure 136/73 . Physical Exam: General- lying in bed, no distress ENT-minimal cerumen right external auditory canal, TM slightly retracted, no erythema or fluid Lungs- clear to auscultation; no respiratory distress Cardiovascular- RRR; no murmur or gallop appreciated; no JVD; 1+ pretibial edema Abdomen- + bowel sounds, soft, nontender Extremities- no cyanosis; no calf tenderness Neuro- alert, oriented x 3, some difficulty with concentration (naming months backwards) Skin- warm & dry . Laboratory Results: Last 24 Hours Test 02/04/18 21:35 02/05/18 06:56 02/05/18 07:35 02/05/18 11:59 Uric Acid 8.4 mg/dl Lactate Dehydrogenase 811 U/L White Blood Count 7.63 K/uL Red Blood Count 3.63 M/uL Hemoglobin 11.3 g/dL Hematocrit 35.3 % Mean Corpuscular Volume 97.2 fL Mean Corpuscular Hemoglobin 31.1 pg Mean Corpuscular Hemoglobin Concent 32.0 g/dl Platelet Count 171 K/uL Mean Platelet Volume 11.4 fL Neutrophils (%) (Auto) 75.1 % Lymphocytes (%) (Auto) 10.5 % Monocytes (%) (Auto) 12.6 % Eosinophils (%) (Auto) 1.2 % Basophils (%) (Auto) 0.3 % Neutrophils # (Auto) 5.74 K/uL Lymphocytes # (Auto) 0.80 K/uL Monocytes # (Auto) 0.96 K/uL Eosinophils # (Auto) 0.09 K/uL Basophils # (Auto) 0.02 K/uL RDW Standard Deviation 52.7 fL RDW Coefficient of Variation 15.1 % Immature Granulocyte % (Auto) 0.3 % Immature Granulocyte # (Auto) 0.02 K/uL Sodium Level 143 mmol/L Potassium Level 3.8 mmol/L Chloride Level 112 mmol/L Carbon Dioxide Level 25 mmol/L Anion Gap 6.0 mmol/L Blood Urea Nitrogen 15 mg/dl Creatinine 0.95 mg/dl Est Creatinine Clear Calc Drug Dose 68.0 ml/min Estimated GFR () 84.9 Estimated GFR (Non- 73.2 BUN/Creatinine Ratio 16.2 Random Glucose 81 mg/dl Calcium Level 8.7 mg/dl Chemistry Specimen Hemolysis Bedside Glucose 80 mg/dl 122 mg/dl Test 02/05/18 16:48 02/05/18 20:14 Bedside Glucose 97 mg/dl 113 mg/dl Assessment & Plan DIARRHEA Presented with several weeks of diarrhea. Stool C. difficile PCR negative. Stool culture negative. Colonoscopy demonstrated sigmoid diverticulitis. Management of diverticulitis as discussed below. Neither Imodium or Lomotil very effective. Discussed with GI. Trial of colestipol recommended. Final pathology from liver biopsy pending, consider carcinoid tumor. DIVERTICULITIS Colonoscopy revealed diverticulitis in the sigmoid colon. Allergic to quinolones. Continue cefepime and metronidazole. UTI (present on admission) Status post Botox injection for hypertonic bladder. UA showed leukocyte esterase, 10-30 WBCs. Urine culture growing Pseudomonas aeruginosa. Allergic to quinolones. Continue therapy with cefepime. ACUTE KIDNEY INJURY Serum creatinine at time of admission was 1.37. Received IV fluids. Creatinine today = 0.95. Follow. LIVER & LUNG MASSES Noted on CT imaging; worrisome for metastatic disease. 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 Bone scan negative for metastatic disease. Status post liver biopsy 02/04; results pending. CARCINOMA PROSTATE PSA = 0.042. Continue bicalutamide. CORONARY ARTERY DISEASE No anginal symptoms. Atorvastatin currently on hold. Continue aspirin and metoprolol. HYPERTENSION Continue metoprolol and lisinopril. DIABETES MELLITUS Blood sugars well controlled. Fasting blood sugar this morning = 80. Continue NovoLog coverage as needed. ANEMIA Hemoglobin 11.3 at time of admission. Serum iron 34, TIBC 259, transferrin 200, percent transferrin sat 12, B12 1528, folate 19. No gross GI bleeding. 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 Started iron therapy. Hemoglobin today = 11.3. Monitor H&H. GENERAL DEBILITATION Multifactorial. Continue PT / OT. VTE PROPHYLAXIS SQ enoxaparin. Ambulate as able. DISPOSITION To be determined. Functional status poor. Receiving PT and OT. Inpatient rehab and skilled care discussed as options; patient hopes to return home with services. Family Medicine follow-up with Dr. Barbosa. Son given update this morning by phone. . Current Inpatient Medications: Current Inpatient Medications Medications (Trade) Dose Ordered Sig/Ena Route Start Time Stop Time Status Last Admin Dose Admin Acetaminophen (Tylenol Tab) 650 mg Q4H PRN PO 01/31/18 00:30 03/02/18 00:29 Future Hold 02/01/18 03:39 650 MG Glucose (Glucose 40% Gel) 15-30 GRAMS 15 GRAMS... UD PRN PO 01/31/18 00:30 03/02/18 00:29 Glucose (Glucose Chew Tab) 4-8 Tablets 4 Tabl... UD PRN PO 01/31/18 00:30 03/02/18 00:29 Dextrose (Dextrose 50% 50ML Syringe) 25-50ML OF 50% DW IV FOR... UD PRN IV 01/31/18 00:30 03/02/18 00:29 Glucagon (Glucagon Inj) 1 mg UD PRN SQ 01/31/18 00:30 03/02/18 00:29 Prochlorperazine Edisylate 5 mg/ Syringe 5 ml @ 5 mls/min Q6H PRN IV 01/31/18 00:30 03/02/18 00:29 Tramadol HCl (Ultram Tab) not relieved by tylenol @ Q6H PRN PO 01/31/18 00:30 03/02/18 00:29 02/04/18 07:34 50 MG Sodium Chloride ([place] Nasal [place]) 2 sprays TID NA 01/31/18 08:00 03/02/18 08:59 02/05/18 14:11 2 SPRAYS Morphine Sulfate (MoRPHine SULFATE INJ) 2 mg Q3H PRN IV 01/31/18 00:30 5/18 00:29 Acetaminophen (Tylenol Tab) 650 mg HS PRN PO 01/31/18 00:30 03/02/18 00:29 Future Hold Famotidine (Pepcid Tab) 40 mg HS PO 01/31/18 21:00 03/02/18 20:59 02/05/18 20:48 40 MG Lisinopril (Zestril Tab) 40 mg DAILY PO 01/31/18 08:00 03/02/18 08:59 02/05/18 07:44 40 MG Metoprolol Succinate (Toprol Xl Tab) 100 mg QAM PO 01/31/18 08:00 03/02/18 08:59 02/05/18 07:43 100 MG Mirabegron (Myrbetriq Er) 50 mg DAILY PO 01/31/18 08:00 03/02/18 08:59 02/05/18 07:44 50 MG Multivitamins (Multivitamin Tab) 1 tab QAM PO 01/31/18 08:00 03/02/18 08:59 02/05/18 07:43 1 TAB Bicalutamide (Casodex Tab) 50 mg DAILY PO 01/31/18 08:00 03/02/18 07:59 02/05/18 08:29 50 MG Miscellaneous (Iv Fluids Completed) 1 ea PRN PRN N/A 01/31/18 04:15 01/31/19 04:14 Insulin Aspart (novoLOG ASPART) SLIDING SCALE If C... ACHS SC 01/31/18 06:30 03/02/18 06:29 Amlodipine Besylate (Norvasc Tab) 10 mg HS PO 01/31/18 21:00 03/02/18 20:59 02/05/18 20:48 10 MG Miconazole Nitrate (Desenex Powder) 1 appln PRN PRN EXT 01/31/18 12:15 03/02/18 12:14 Loperamide HCl (Imodium Cap) 2 mg UD PRN PO 01/31/18 19:45 03/02/18 19:44 02/03/18 15:48 2 MG Cefepime HCl (Consult) 1 ea UD PRN N/A 02/02/18 12:37 03/04/18 12:36 Cefepime HCl 2000 mg/Syringe 20 ml @ 5 mls/min Q12H IV 02/02/18 14:00 02/12/18 13:59 02/05/18 14:11 5 MLS/MIN Metronidazole 500 mg/Prmx 100 ml @ 100 mls/hr Q8H IV 02/02/18 18:00 02/12/18 17:59 02/05/18 17:37 100 MLS/HR Furosemide (Lasix Tab) 20 mg QAM PO 02/03/18 08:00 03/05/18 07:59 02/05/18 07:44 20 MG Acetaminophen (Tylenol Tab) 1,000 mg Q6H PRN PO 02/03/18 11:00 03/05/18 10:59 Enoxaparin Sodium (Lovenox Inj) 40 mg QAM SQ 02/04/18 08:00 03/06/18 07:59 02/05/18 08:30 40 MG Aspirin (Ecotrin Tab) 81 mg QAM PO 02/04/18 08:00 03/06/18 07:59 02/05/18 07:44 81 MG Ferrous Sulfate (Feosol Tab) 325 mg DAILY@1200 PO 02/04/18 12:00 03/06/18 11:59 02/05/18 12:10 325 MG Ascorbic Acid (Vitamin C Tab) 500 mg DAILY@1200 PO 02/04/18 12:00 03/06/18 11:59 02/05/18 12:10 500 MG Fluticasone Propionate (Flonase Nasal [place]) 2 sprays BID NA 02/05/18 20:00 03/07/18 19:59 02/05/18 20:50 2 SPRAYS Colestipol HCl (Colestid Tab) 1 gm BID PO 02/05/18 20:00 03/07/18 19:59 02/05/18 20:47 1 GM
[2018-02-06] MEDS: METRONIDAZOLE / NSS 500 MG in PREMIXED NSS 100 ML IV SCH ×2 (01:54→09:17)
[2018-02-06] MEDS: CEFEPIME IV 2,000 MG in SYRINGE 7.5 ML IV SCH ×2 (01:54→14:05)
[2018-02-06 07:55] VITALS: BP 119/72; PULSE 81; TEMP 36.9; O2SAT 93
[2018-02-06 09:11] LABS: BASO % 0.3 %; BASO ABS # 0.02 K/uL (0-0.2); EOS % 0.9 %; EOS ABS # 0.07 K/uL (0-0.5); IG# 0.02 K/uL (0.00-0.02); LYMPH % 7.1 %; LYMPH ABS # 0.56 K/uL (1.2-3.4); MEAN CORPUSCULAR HGB CONC 33.3 g/dl (32-36); MEAN PLATELET VOLUME 11.3 fL (7.4-10.4); MONO % 12.5 %; MONO ABS # 0.99 K/uL (0.11-0.59); NEUT % 78.9 %; NEUT ABS # 6.27 K/uL (1.4-6.5); PLATELET COUNT 166 K/uL (130-400); RED CELL DISTRIBUTION WIDTH SD 51.6 fL (36.4-46.3); WHITE BLOOD COUNT 7.93 K/uL (4.8-10.8)
[2018-02-06] MEDS: FUROSEMIDE 20 MG TAB PO SCH (09:17)
[2018-02-06] MEDS: MIRABEGRON ER 25 MG TAB PO SCH (09:18)
[2018-02-06] MEDS: MULTIVITAMIN TAB PO SCH (09:18)
[2018-02-06] MEDS: ASCORBIC ACID 500 MG TAB PO SCH (09:18)
[2018-02-06] MEDS: LISINOPRIL 40 MG TAB PO SCH (09:18)
[2018-02-06] MEDS: ASPIRIN 81 MG ECTAB PO SCH (09:18)
[2018-02-06] MEDS: METOPROLOL SUCC 50MG EXT REL TAB PO SCH (09:18)
[2018-02-06] MEDS: FERROUS SULFATE 325 MG TAB PO SCH (09:18)
[2018-02-06] MEDS: COLESTIPOL HCL 1 GM TAB PO SCH ×2 (09:18→23:21)
[2018-02-06] MEDS: ENOXAPARIN 40 MG/0.4 ML SYR SQ SCH (09:19)
[2018-02-06] MEDS: FLUTICASONE PROPIONATE NA SPR 16 GM BTL SCH ×2 (09:20→20:24)
[2018-02-06] MEDS: SODIUM CHLORIDE 0.65% NA SOLN 45 ML (OCEAN) SCH ×3 (09:20→20:27)
[2018-02-06] MEDS: INSULIN ASPART 100 UNITS/ML 3 ML PEN SC SCH ×4 (09:20→20:22)
[2018-02-06] MEDS: BICALUTAMIDE 50 MG TAB PO SCH (09:24)
[2018-02-06 09:30] LABS: HEMOGLOBIN A1C 5.6 % (4.5-5.6)
[2018-02-06 09:44] LABS: CALCIUM 8.7 mg/dl (8.5-10.1); CREATININE 1.16 mg/dl (0.60-1.40); POTASSIUM 3.7 mmol/L (3.5-5.1)
[2018-02-06 11:13] VITALS: BP 129/69; PULSE 102; TEMP 36.6; O2SAT 100
--- NOTE | 2018-02-06 11:39 | Gastroenterology Progress Note ---
Progress Note Date of Service: Feb 06, 2018 Subjective Pt evaluation today including: conversation w/ patient, physical exam, chart review, lab review, review of inpatient medication list Spoke w pt and son (Braydon) at bedside. He is still waking up in middle of night w loose stools. 24Hr urine collection, carcinoid marker pending. Review of Systems Constitutional: No fever, No chills Respiratory: No cough Abdomen: + diarrhea, No pain, No nausea, No vomiting Medications Current Inpatient Medications Medications (Trade) Dose Ordered Sig/Ena Route Start Time Stop Time Status Last Admin Dose Admin Acetaminophen (Tylenol Tab) 650 mg Q4H PRN PO 01/31/18 00:30 03/02/18 00:29 Future Hold 02/01/18 03:39 650 MG Glucose (Glucose 40% Gel) 15-30 GRAMS 15 GRAMS... UD PRN PO 01/31/18 00:30 03/02/18 00:29 Glucose (Glucose Chew Tab) 4-8 Tablets 4 Tabl... UD PRN PO 01/31/18 00:30 03/02/18 00:29 Dextrose (Dextrose 50% 50ML Syringe) 25-50ML OF 50% DW IV FOR... UD PRN IV 01/31/18 00:30 03/02/18 00:29 Glucagon (Glucagon Inj) 1 mg UD PRN SQ 01/31/18 00:30 03/02/18 00:29 Prochlorperazine Edisylate 5 mg/ Syringe 5 ml @ 5 mls/min Q6H PRN IV 01/31/18 00:30 03/02/18 00:29 Tramadol HCl (Ultram Tab) not relieved by tylenol @ Q6H PRN PO 01/31/18 00:30 03/02/18 00:29 02/04/18 07:34 50 MG Sodium Chloride ([place] Nasal [place]) 2 sprays TID NA 01/31/18 08:00 03/02/18 08:59 02/06/18 09:20 2 SPRAYS Morphine Sulfate (MoRPHine SULFATE INJ) 2 mg Q3H PRN IV 01/31/18 00:30 02/14/18 00:29 Acetaminophen (Tylenol Tab) 650 mg HS PRN PO 01/31/18 00:30 03/02/18 00:29 Future Hold Famotidine (Pepcid Tab) 40 mg HS PO 01/31/18 21:00 03/02/18 20:59 02/05/18 20:48 40 MG Lisinopril (Zestril Tab) 40 mg DAILY PO 01/31/18 08:00 03/02/18 08:59 02/06/18 09:18 40 MG Metoprolol Succinate (Toprol Xl Tab) 100 mg QAM PO 01/31/18 08:00 03/02/18 08:59 02/06/18 09:18 100 MG Mirabegron (Myrbetriq Er) 50 mg DAILY PO 01/31/18 08:00 03/02/18 08:59 02/06/18 09:18 50 MG Multivitamins (Multivitamin Tab) 1 tab QAM PO 01/31/18 08:00 03/02/18 08:59 02/06/18 09:18 1 TAB Bicalutamide (Casodex Tab) 50 mg DAILY PO 01/31/18 08:00 03/02/18 07:59 02/06/18 09:24 50 MG Miscellaneous (Iv Fluids Completed) 1 ea PRN PRN N/A 01/31/18 04:15 01/31/19 04:14 Insulin Aspart (novoLOG ASPART) SLIDING SCALE If C... ACHS SC 01/31/18 06:30 03/02/18 06:29 Amlodipine Besylate (Norvasc Tab) 10 mg HS PO 01/31/18 21:00 03/02/18 20:59 02/05/18 20:48 10 MG Miconazole Nitrate (Desenex Powder) 1 appln PRN PRN EXT 01/31/18 12:15 03/02/18 12:14 Loperamide HCl (Imodium Cap) 2 mg UD PRN PO 01/31/18 19:45 03/02/18 19:44 02/03/18 15:48 2 MG Cefepime HCl (Consult) 1 ea UD PRN N/A 02/02/18 12:37 03/04/18 12:36 Cefepime HCl 2000 mg/Syringe 20 ml @ 5 mls/min Q12H IV 02/02/18 14:00 02/12/18 13:59 02/06/18 01:54 5 MLS/MIN Furosemide (Lasix Tab) 20 mg QAM PO 02/03/18 08:00 03/05/18 07:59 02/06/18 09:17 20 MG Acetaminophen (Tylenol Tab) 1,000 mg Q6H PRN PO 02/03/18 11:00 03/05/18 10:59 Enoxaparin Sodium (Lovenox Inj) 40 mg QAM SQ 02/04/18 08:00 03/06/18 07:59 02/06/18 09:19 40 MG Aspirin (Ecotrin Tab) 81 mg QAM PO 02/04/18 08:00 03/06/18 07:59 02/06/18 09:18 81 MG Ferrous Sulfate (Feosol Tab) 325 mg DAILY@1200 PO 02/04/18 12:00 03/06/18 11:59 02/06/18 09:18 325 MG Ascorbic Acid (Vitamin C Tab) 500 mg DAILY@1200 PO 02/04/18 12:00 03/06/18 11:59 02/06/18 09:18 500 MG Fluticasone Propionate (Flonase Nasal [place]) 2 sprays BID NA 02/05/18 20:00 03/07/18 19:59 02/06/18 09:20 2 SPRAYS Colestipol HCl (Colestid Tab) 1 gm BID PO 02/05/18 20:00 03/07/18 19:59 02/06/18 09:18 1 GM Metronidazole (Flagyl Tab) 500 mg TID PO 02/06/18 20:00 02/11/18 23:59 Diphenoxylate HCl/ Atropine (Lomotil Tab) 1 tab TODAY@2100 ONCE PO 02/06/18 21:00 02/06/18 21:01 Objective Vital Signs Date Time Temp Pulse Resp B/P (MAP) Pulse Ox O2 Delivery O2 Flow Rate FiO2 02/06/18 11:13 36.6 102 20 129/69 (89) 100 02/06/18 08:30 Room Air 02/06/18 07:55 36.9 81 20 119/72 (88) 93 02/06/18 00:00 Room Air 02/05/18 23:51 36.7 87 20 110/57 (74) 93 Room Air 02/05/18 19:36 36.7 129 20 127/66 (86) 95 Room Air 02/05/18 15:56 Room Air 02/05/18 15:22 36.4 84 19 123/71 (88) 94 Room Air Physical Exam General Appearance: WD/WN, no apparent distress Eyes: normal inspection, PERRL, EOMI Neck: supple, no JVD, trachea midline Respiratory/Chest: normal breath sounds, no respiratory distress, no accessory muscle use Cardiovascular: regular rate, rhythm, no gallop, no murmur Abdomen: normal bowel sounds, non tender, soft Extremities: normal inspection, no pedal edema, no calf tenderness Neurologic/Psych: alert, normal mood/affect, oriented x 3 Skin: normal color, no jaundice, no rash Laboratory Results Last 24 Hours Test 02/05/18 11:59 02/05/18 16:48 02/05/18 20:14 02/06/18 07:29 Bedside Glucose 122 mg/dl 97 mg/dl 113 mg/dl 85 mg/dl Test 02/06/18 08:52 White Blood Count 7.93 K/uL Red Blood Count 3.75 M/uL Hemoglobin 12.0 g/dL Hematocrit 36.0 % Mean Corpuscular Volume 96.0 fL Mean Corpuscular Hemoglobin 32.0 pg Mean Corpuscular Hemoglobin Concent 33.3 g/dl Platelet Count 166 K/uL Mean Platelet Volume 11.3 fL Neutrophils (%) (Auto) 78.9 % Lymphocytes (%) (Auto) 7.1 % Monocytes (%) (Auto) 12.5 % Eosinophils (%) (Auto) 0.9 % Basophils (%) (Auto) 0.3 % Neutrophils # (Auto) 6.27 K/uL Lymphocytes # (Auto) 0.56 K/uL Monocytes # (Auto) 0.99 K/uL Eosinophils # (Auto) 0.07 K/uL Basophils # (Auto) 0.02 K/uL RDW Standard Deviation 51.6 fL RDW Coefficient of Variation 15.0 % Immature Granulocyte % (Auto) 0.3 % Immature Granulocyte # (Auto) 0.02 K/uL Sodium Level 138 mmol/L Potassium Level 3.7 mmol/L Chloride Level 109 mmol/L Carbon Dioxide Level 21 mmol/L Anion Gap 8.0 mmol/L Blood Urea Nitrogen 20 mg/dl Creatinine 1.16 mg/dl Est Creatinine Clear Calc Drug Dose 56.2 ml/min Estimated GFR () 66.7 Estimated GFR (Non- 57.5 BUN/Creatinine Ratio 17.1 Random Glucose 148 mg/dl Estimated Average Glucose 114 mg/dl Hemoglobin A1c 5.6 % Calcium Level 8.7 mg/dl Magnesium Level 1.7 mg/dl Chemistry Specimen Hemolysis Assessment and Plan Pt is a 82 y/o male, seen for diarrhea x 5 weeks. Previous trial of Dicyclomine not effective. Stool cx, Cdiff negative. 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 He underwent colonoscopy on 02/02, found to have diverticulitis on sigmoid colon currently on Flagyl and Cefepime; AVMs, hemorrhoids, one colon polyp, colon bx pending. Stool aspirate done, negative. Currently using Imodium for diarrhea. Still with high frequency of bm's though tolerating meals without pain, nausea, vomiting. Of note he has hx of prostate ca on Casodex, during this admission found to be anemic and also noted to have liver & lung lesions consistent w mets. Heme/Onc following, and requesting a u/s guided liver bx which was already ordered by primary hospitalist. - Continue Imodium on PRN basis for now. Lomotil DC'd due to confusion. Last night started on Colestipol 1g BID. - Continue current antibx for diverticulitis. - Heme/Onc following for prostate ca hx and evidence of lung/liver mets
[2018-02-06 14:53] VITALS: BP 103/61; PULSE 87; TEMP 36.8; O2SAT 94
--- NOTE | 2018-02-06 17:34 | Hematology/Oncology Prog Note ---
Hematology/Onc Progress Note Date of Service Feb 06, 2018. Subjective Patient was rounded on at bedside. He states he did not have good sleep last evening due to interruptions. He states he had 3-4 formed BMs today. He states his appetite is decreased due to the "bad food here." He denies abdominal pain. He does not have cough or dyspnea. Vital Signs Vital Signs Past 12 Hours Date Time Temp Pulse Resp B/P (MAP) Pulse Ox O2 Delivery O2 Flow Rate FiO2 02/06/18 15:50 Room Air 02/06/18 14:53 36.8 87 20 103/61 (75) 94 02/06/18 11:13 36.6 102 20 129/69 (89) 100 02/06/18 08:30 Room Air 02/06/18 07:55 36.9 81 20 119/72 (88) 93 Physical Exam Constitutional: Level of Distress: NAD, chronically ill Lungs: Respiratory Effort: no dyspnea Auscuitation: breath sounds normal Cardiovascular: Heart Auscultation: pertinent finding (NSR with PACs) Abdomen: Bowel Sounds: normal Inspection & Palpation: soft, no tenderness, guarding & rebound Laboratory Last 24 Hours Test 02/05/18 20:14 02/06/18 07:29 02/06/18 08:52 02/06/18 11:48 Bedside Glucose 113 mg/dl 85 mg/dl 195 mg/dl White Blood Count 7.93 K/uL Red Blood Count 3.75 M/uL Hemoglobin 12.0 g/dL Hematocrit 36.0 % Mean Corpuscular Volume 96.0 fL Mean Corpuscular Hemoglobin 32.0 pg Mean Corpuscular Hemoglobin Concent 33.3 g/dl Platelet Count 166 K/uL Mean Platelet Volume 11.3 fL Neutrophils (%) (Auto) 78.9 % Lymphocytes (%) (Auto) 7.1 % Monocytes (%) (Auto) 12.5 % Eosinophils (%) (Auto) 0.9 % Basophils (%) (Auto) 0.3 % Neutrophils # (Auto) 6.27 K/uL Lymphocytes # (Auto) 0.56 K/uL Monocytes # (Auto) 0.99 K/uL Eosinophils # (Auto) 0.07 K/uL Basophils # (Auto) 0.02 K/uL RDW Standard Deviation 51.6 fL RDW Coefficient of Variation 15.0 % Immature Granulocyte % (Auto) 0.3 % Immature Granulocyte # (Auto) 0.02 K/uL Sodium Level 138 mmol/L Potassium Level 3.7 mmol/L Chloride Level 109 mmol/L Carbon Dioxide Level 21 mmol/L Anion Gap 8.0 mmol/L Blood Urea Nitrogen 20 mg/dl Creatinine 1.16 mg/dl Est Creatinine Clear Calc Drug Dose 56.2 ml/min Estimated GFR () 66.7 Estimated GFR (Non- 57.5 BUN/Creatinine Ratio 17.1 Random Glucose 148 mg/dl Estimated Average Glucose 114 mg/dl Hemoglobin A1c 5.6 % Calcium Level 8.7 mg/dl Magnesium Level 1.7 mg/dl Chemistry Specimen Hemolysis Test 02/06/18 16:16 Bedside Glucose 135 mg/dl Pathology 02/03/18: LIVER, ULTRASOUND-GUIDED ASPIRATION: 1. MALIGNANT CELLS PRESENT, CONSISTENT WITH METASTATIC SMALL CELL CARCINOMA. 2. SEE COMMENT. COMMENT: The aspirate specimen contains numerous groups of malignant cells with round to ovoid nuclei and only small amounts of cytoplasm. The chromatin is lightly granular without prominent nucleoli. A small amount of necrotic debris is noted. There are relatively minimal amounts of nuclear molding. The cytologic appearance is in keeping with a neuroendocrine carcinoma, such as a small cell carcinoma. Immunohistochemistry shows the malignant cells staining positive with pankeratin , CK7, TTF-1 (very focal weak), CD56, synaptophysin, and chromogranin. Semiquantitative analysis of a Ki-67 immunostain shows a high proliferation index (~96%). CK20 and CDX2 are negative. The overall findings are consistent with metastatic small cell carcinoma. LIVER, CORE BIOPSY: METASTATIC SMALL CELL CARCINOMA Assessment & Plan 1. 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 Hermosillo plans to discuss about treatment plans with family * Patient will need a follow up with Medical Oncology on discharge Dr. Hermosillo is attending medical oncologist- please see his addendum. I have discussed the patient's case, impression and plan with Jeanette Lam. Her note reflects my findings and plan. Dr. Alexys Hermosillo Hem/Onc
--- NOTE | 2018-02-06 19:11 | Hematology/Oncology Prog Note ---
Hematology/Onc Progress Note Date of Service Feb 06, 2018. Subjective I saw him at bedside, he was sitting comfortably in the bed, has persistent diarrhea 3 to 4 times in a day, no blood in the stool, feeling slightly weak and tired, cough with scanty white expectant present, hemodynamically he has remained stable, O 2 saturation room air is around 94-100%. No fever. No focal neurological symptoms. I reviewed blood workup done on 02/06/2018: -WBC 7900, H&H of , Platelet count of 166,000. -BUN/Creat: 20/1.1, calcium 8.7, magnesium 1.7. -uric acid--> 8.4, LDH 811 (02/04/2018). Biopsy from the liver lesion--> metastatic small cell lung cancer He is going for a brain MRI for further evaluation. I spoke with his 2 sons who are at bedside, once again reviewed with them regarding diagnostic workup, reviewed the imaging studies done in his case, final histopathological diagnosis. He has stage IV small cell lung cancer, no definite primary but primary site of the lung would be possible, history of smoking present in the past. I reviewed with his 2 sons who had bedside regarding diagnostic workup, reviewed with them regarding the histopathological findings, discussed with them regarding overall treatment goal which would be palliative and not curative , no role of surgery, no role of radiation treatment. Discussed with them regarding the role of systemic chemotherapy with carboplatin and etoposide that can be considered in his case, reviewed with them regarding treatment schedule, side effect profile. He is going for brain MRI to rule out occult brain metastatic disease. Patient will decide about whether he would like to proceed with chemotherapy or not in the next 1 to 2 days, if we decide for the chemotherapy, I am planning for following chemotherapy. Carboplatin at AUC of 5 on day 1 Etoposide 80 mg/m2 daily for 2 days and see how he tolerates the treatment. Will start prophylactic allopurinol to prevent tumor lysis. Will have to watch for the tumor lysis but Dr. Alexys Hermosillo Hem/Onc. Vital Signs Vital Signs Past 12 Hours Date Time Temp Pulse Resp B/P (MAP) Pulse Ox O2 Delivery O2 Flow Rate FiO2 02/06/18 15:50 Room Air 02/06/18 14:53 36.8 87 20 103/61 (75) 94 02/06/18 11:13 36.6 102 20 129/69 (89) 100 02/06/18 08:30 Room Air 02/06/18 07:55 36.9 81 20 119/72 (88) 93 Physical Exam Constitutional: Level of Distress: NAD, chronically ill Lungs: Respiratory Effort: no dyspnea Auscuitation: breath sounds normal Cardiovascular: Heart Auscultation: pertinent finding (NSR with PACs) Abdomen: Bowel Sounds: normal Inspection & Palpation: soft, no tenderness, guarding & rebound
[2018-02-06 20:07] VITALS: BP 121/68; PULSE 94; TEMP 36.6; O2SAT 95
[2018-02-06] MEDS: FAMOTIDINE 20 MG TAB PO SCH (20:21)
[2018-02-06] MEDS: AMLODIPINE BESYLATE 5 MG TAB PO SCH (20:21)
[2018-02-06] MEDS: METRONIDAZOLE 500 MG TAB PO SCH (20:22)
[2018-02-06] MEDS ORDERED: DIPHENOXYLATE/ATROPINE 2.5/0.025MG TAB PO ONE (21:00)
--- NOTE | 2018-02-06 21:19 | Progress Note ---
Medicine Progress Note Date & Time of Visit: Feb 06, 2018 at 21:19. Subjective CC: Follow-up visit for diarrhea, UTI, liver / lung lesions, and other problem. HPI: Still having loose stools. No abdominal pain, nausea, vomiting. ROS: General- no fever, no chills Resp- no cough; no shortness of breath Cardiac- no chest pain, no edema GI- as noted above in HPI - no dysuria . Objective Last 8 Hrs Date Time Temp Pulse Resp B/P (MAP) Pulse Ox O2 Delivery O2 Flow Rate FiO2 02/06/18 20:07 36.6 94 20 121/68 (85) 95 Room Air 02/06/18 15:50 Room Air 02/06/18 14:53 36.8 87 20 103/61 (75) 94 Physical Exam: General- sitting in chair at bedside, no distress Lungs- clear to auscultation; no respiratory distress Cardiovascular- RRR; no murmur or gallop appreciated; no JVD; 1+ pretibial edema Abdomen- + bowel sounds, soft, nontender Extremities- no cyanosis; no calf tenderness Neuro- alert, oriented x 3 Skin- warm & dry . Laboratory Results: Last 24 Hours Test 02/06/18 07:29 02/06/18 08:52 02/06/18 11:48 02/06/18 16:16 Bedside Glucose 85 mg/dl 195 mg/dl 135 mg/dl White Blood Count 7.93 K/uL Red Blood Count 3.75 M/uL Hemoglobin 12.0 g/dL Hematocrit 36.0 % Mean Corpuscular Volume 96.0 fL Mean Corpuscular Hemoglobin 32.0 pg Mean Corpuscular Hemoglobin Concent 33.3 g/dl Platelet Count 166 K/uL Mean Platelet Volume 11.3 fL Neutrophils (%) (Auto) 78.9 % Lymphocytes (%) (Auto) 7.1 % Monocytes (%) (Auto) 12.5 % Eosinophils (%) (Auto) 0.9 % Basophils (%) (Auto) 0.3 % Neutrophils # (Auto) 6.27 K/uL Lymphocytes # (Auto) 0.56 K/uL Monocytes # (Auto) 0.99 K/uL Eosinophils # (Auto) 0.07 K/uL Basophils # (Auto) 0.02 K/uL RDW Standard Deviation 51.6 fL RDW Coefficient of Variation 15.0 % Immature Granulocyte % (Auto) 0.3 % Immature Granulocyte # (Auto) 0.02 K/uL Sodium Level 138 mmol/L Potassium Level 3.7 mmol/L Chloride Level 109 mmol/L Carbon Dioxide Level 21 mmol/L Anion Gap 8.0 mmol/L Blood Urea Nitrogen 20 mg/dl Creatinine 1.16 mg/dl Est Creatinine Clear Calc Drug Dose 56.2 ml/min Estimated GFR () 66.7 Estimated GFR (Non- 57.5 BUN/Creatinine Ratio 17.1 Random Glucose 148 mg/dl Estimated Average Glucose 114 mg/dl Hemoglobin A1c 5.6 % Calcium Level 8.7 mg/dl Magnesium Level 1.7 mg/dl Chemistry Specimen Hemolysis Test 02/06/18 20:20 Bedside Glucose 147 mg/dl Assessment & Plan DIARRHEA Presented with several weeks of diarrhea. Stool C. difficile PCR negative. Stool culture negative. Colonoscopy demonstrated sigmoid diverticulitis. Management of diverticulitis as discussed below. Neither Imodium or Lomotil very effective. Colestipol started. Collecting 24-hour urine for 5 HIAA. DIVERTICULITIS Colonoscopy revealed diverticulitis in the sigmoid colon. Allergic to quinolones. Continue cefepime and metronidazole. UTI (present on admission) Status post Botox injection for hypertonic bladder. UA showed leukocyte esterase, 10-30 WBCs. Urine culture growing Pseudomonas aeruginosa. Allergic to quinolones. Continue therapy with cefepime. ACUTE KIDNEY INJURY Serum creatinine at time of admission was 1.37. Received IV fluids. Creatinine today = 1.16. Follow. LIVER & LUNG MASSES Noted on CT imaging; worrisome for metastatic disease. 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 Bone scan negative for metastatic disease. 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 Patient informed of results. 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 Further management per Medical Oncology. CARCINOMA PROSTATE PSA = 0.042. Continue bicalutamide. CORONARY ARTERY DISEASE No anginal symptoms. Atorvastatin currently on hold. Continue aspirin and metoprolol. HYPERTENSION Continue metoprolol and lisinopril. DIABETES MELLITUS Blood sugars usually well-controlled with dietary management. Hemoglobin A1c 5.6. Blood sugars fluctuating due to acute illness. Fasting blood sugar this morning = 114. Continue NovoLog coverage as needed. ANEMIA Hemoglobin 11.3 at time of admission. Serum iron 34, TIBC 259, transferrin 200, percent transferrin sat 12, B12 1528, folate 19. No gross GI bleeding. 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 Started iron therapy. Hemoglobin today = 12.0. Monitor H&H. GENERAL DEBILITATION Multifactorial. Continue PT / OT. VTE PROPHYLAXIS SQ enoxaparin. Ambulate as able. DISPOSITION Needs some assistance with ADLs. Receiving PT and OT. Inpatient rehab and skilled care discussed as options; patient hopes to return home with services. Family Medicine follow-up with Dr. Barbosa. ADDENDUM: Sons and spouse visiting this afternoon. There are given update on his condition. Dr. Hermosillo plans on rounding later today and will be giving patient and family update. . Current Inpatient Medications: Current Inpatient Medications Medications (Trade) Dose Ordered Sig/Ena Route Start Time Stop Time Status Last Admin Dose Admin Acetaminophen (Tylenol Tab) 650 mg Q4H PRN PO 01/31/18 00:30 03/02/18 00:29 Future Hold 02/01/18 03:39 650 MG Glucose (Glucose 40% Gel) 15-30 GRAMS 15 GRAMS... UD PRN PO 01/31/18 00:30 03/02/18 00:29 Glucose (Glucose Chew Tab) 4-8 Tablets 4 Tabl... UD PRN PO 01/31/18 00:30 03/02/18 00:29 Dextrose (Dextrose 50% 50ML Syringe) 25-50ML OF 50% DW IV FOR... UD PRN IV 01/31/18 00:30 03/02/18 00:29 Glucagon (Glucagon Inj) 1 mg UD PRN SQ 01/31/18 00:30 03/02/18 00:29 Prochlorperazine Edisylate 5 mg/ Syringe 5 ml @ 5 mls/min Q6H PRN IV 01/31/18 00:30 03/02/18 00:29 Tramadol HCl (Ultram Tab) not relieved by tylenol @ Q6H PRN PO 01/31/18 00:30 03/02/18 00:29 02/04/18 07:34 50 MG Sodium Chloride ([place] Nasal [place]) 2 sprays TID NA 01/31/18 08:00 03/02/18 08:59 02/06/18 20:27 2 SPRAYS Morphine Sulfate (MoRPHine SULFATE INJ) 2 mg Q3H PRN IV 01/31/18 00:30 02/14/18 00:29 Acetaminophen (Tylenol Tab) 650 mg HS PRN PO 01/31/18 00:30 03/02/18 00:29 Future Hold Famotidine (Pepcid Tab) 40 mg HS PO 01/31/18 21:00 03/02/18 20:59 02/06/18 20:21 40 MG Lisinopril (Zestril Tab) 40 mg DAILY PO 01/31/18 08:00 03/02/18 08:59 02/06/18 09:18 40 MG Metoprolol Succinate (Toprol Xl Tab) 100 mg QAM PO 01/31/18 08:00 03/02/18 08:59 02/06/18 09:18 100 MG Mirabegron (Myrbetriq Er) 50 mg DAILY PO 01/31/18 08:00 03/02/18 08:59 02/06/18 09:18 50 MG Multivitamins (Multivitamin Tab) 1 tab QAM PO 01/31/18 08:00 03/02/18 08:59 02/06/18 09:18 1 TAB Bicalutamide (Casodex Tab) 50 mg DAILY PO 01/31/18 08:00 03/02/18 07:59 02/06/18 09:24 50 MG Miscellaneous (Iv Fluids Completed) 1 ea PRN PRN N/A 01/31/18 04:15 01/31/19 04:14 Insulin Aspart (novoLOG ASPART) SLIDING SCALE If C... ACHS SC 01/31/18 06:30 03/02/18 06:29 Amlodipine Besylate (Norvasc Tab) 10 mg HS PO 01/31/18 21:00 03/02/18 20:59 02/06/18 20:21 10 MG Miconazole Nitrate (Desenex Powder) 1 appln PRN PRN EXT 01/31/18 12:15 03/02/18 12:14 Loperamide HCl (Imodium Cap) 2 mg UD PRN PO 01/31/18 19:45 03/02/18 19:44 02/03/18 15:48 2 MG Cefepime HCl (Consult) 1 ea UD PRN N/A 02/02/18 12:37 03/04/18 12:36 Cefepime HCl 2000 mg/Syringe 20 ml @ 5 mls/min Q12H IV 02/02/18 14:00 02/12/18 13:59 02/06/18 14:05 5 MLS/MIN Furosemide (Lasix Tab) 20 mg QAM PO 02/03/18 08:00 03/05/18 07:59 02/06/18 09:17 20 MG Acetaminophen (Tylenol Tab) 1,000 mg Q6H PRN PO 02/03/18 11:00 03/05/18 10:59 Enoxaparin Sodium (Lovenox Inj) 40 mg QAM SQ 02/04/18 08:00 03/06/18 07:59 02/06/18 09:19 40 MG Aspirin (Ecotrin Tab) 81 mg QAM PO 02/04/18 08:00 03/06/18 07:59 02/06/18 09:18 81 MG Ferrous Sulfate (Feosol Tab) 325 mg DAILY@1200 PO 02/04/18 12:00 03/06/18 11:59 02/06/18 09:18 325 MG Ascorbic Acid (Vitamin C Tab) 500 mg DAILY@1200 PO 02/04/18 12:00 03/06/18 11:59 02/06/18 09:18 500 MG Fluticasone Propionate (Flonase Nasal [place]) 2 sprays BID NA 02/05/18 20:00 03/07/18 19:59 02/06/18 20:24 2 SPRAYS Colestipol HCl (Colestid Tab) 1 gm BID PO 02/05/18 20:00 03/07/18 19:59 02/06/18 09:18 1 GM Metronidazole (Flagyl Tab) 500 mg TID PO 02/06/18 20:00 02/11/18 23:59 02/06/18 20:22 500 MG
[2018-02-06] MEDS ORDERED: GADAVIST IV PRN (21:30)
--- NOTE | 2018-02-06 21:42 | DIAGNOSTIC IMAGING REPORT ---
MRI OF THE BRAIN COMBO CLINICAL HISTORY: Generalized weakness. Metastatic disease of unknown primary. COMPARISON STUDY: No priors. TECHNIQUE: MRI of the brain was performed utilizing various T1 and T2-weighted sequences in the axial, sagittal, and coronal planes. Contrast-enhanced sequences were acquired following the administration of 9 cc of Gadavist. FINDINGS: Brain parenchyma: There are age-related involutional changes noting mild subcortical and periventricular microangiopathic disease. There is no hemorrhage or mass effect. There is no restricted diffusion to suggest acute ischemia. A chronic lacunar infarct is noted in the left hatfield radiata. No enhancing mass lesion is identified on the postcontrast images. Gibbs-white matter differentiation is preserved. No extra-axial fluid collection is seen. The cerebellar tonsils are normal in configuration. Ventricles, sulci, and cisterns: Prominent secondary to involutional change. Pituitary and sella: Unremarkable. Intracranial vasculature: Normal flow voids are maintained at the skull base. Orbits: The bony orbits are grossly intact. Orbital contents are normal in appearance noting bilateral ocular lens implants. Sinuses and mastoids: There are bilateral mastoid effusions. The visualized cranial sinuses are clear. Calvarium: Unremarkable. Cervical cord: Partially visualized cervical spinal cord is normal in morphology and signal intensity. Soft tissues: There is prominence of the right pharyngeal/tonsillar soft tissues, best seen on axial image #3 IMPRESSION: 1. There is no hemorrhage, enhancing mass, or evidence of acute ischemia. 2. Bilateral mastoid effusions. 3. There is prominence of the right pharyngeal/tonsillar soft tissues. This is of indeterminate etiology and significance. Correlation with direct visualization is recommended. Electronically signed by: David Sepulveda M.D. 02/06/2018 9:40 PM Dictated Date/Time: 02/06/2018 9:35 PM
[2018-02-07] VITALS (7 sets, daily range): BP systolic 106–137; BP diastolic 56–71; PULSE 81–98; TEMP 36.1–36.7; O2SAT 92–95
[2018-02-07] MEDS: CEFEPIME IV 2,000 MG in SYRINGE 7.5 ML IV SCH ×2 (02:00→14:40)
[2018-02-07 05:48] LABS: BASO % 0.4 %; BASO ABS # 0.03 K/uL (0-0.2); EOS % 1.1 %; EOS ABS # 0.09 K/uL (0-0.5); HEMATOCRIT 34.4 % (42-52); HEMOGLOBIN 11.2 g/dL (14.0-18.0); IG# 0.03 K/uL (0.00-0.02); MEAN CELL VOLUME 95.8 fL (80-100); MEAN CORPUSCULAR HEMOGLOBIN 31.2 pg (25-34); MEAN CORPUSCULAR HGB CONC 32.6 g/dl (32-36); MEAN PLATELET VOLUME 11.4 fL (7.4-10.4); MONO % 13.4 %; NEUT % 73.7 %; NEUT ABS # 6.03 K/uL (1.4-6.5); PLATELET COUNT 170 K/uL (130-400); RED CELL DISTRIBUTION WIDTH CV 15.2 % (11.5-14.5); RED CELL DISTRIBUTION WIDTH SD 52.5 fL (36.4-46.3); WHITE BLOOD COUNT 8.18 K/uL (4.8-10.8)
[2018-02-07] MEDS: INSULIN ASPART 100 UNITS/ML 3 ML PEN SC SCH ×4 (08:17→21:00)
[2018-02-07] MEDS: SODIUM CHLORIDE 0.65% NA SOLN 45 ML (OCEAN) SCH ×3 (08:20→21:07)
[2018-02-07] MEDS: COLESTIPOL HCL 1 GM TAB PO SCH ×2 (08:20→21:05)
[2018-02-07] MEDS: ASPIRIN 81 MG ECTAB PO SCH (08:20)
[2018-02-07] MEDS: FLUTICASONE PROPIONATE NA SPR 16 GM BTL SCH ×2 (08:20→21:07)
[2018-02-07] MEDS: METRONIDAZOLE 500 MG TAB PO SCH ×3 (08:20→21:06)
[2018-02-07] MEDS: LISINOPRIL 40 MG TAB PO SCH (08:21)
[2018-02-07] MEDS: MIRABEGRON ER 25 MG TAB PO SCH (08:21)
[2018-02-07] MEDS: FUROSEMIDE 20 MG TAB PO SCH (08:21)
[2018-02-07] MEDS: MULTIVITAMIN TAB PO SCH (08:21)
[2018-02-07] MEDS: METOPROLOL SUCC 50MG EXT REL TAB PO SCH (08:21)
[2018-02-07] MEDS: ENOXAPARIN 40 MG/0.4 ML SYR SQ SCH (08:22)
[2018-02-07] MEDS: BICALUTAMIDE 50 MG TAB PO SCH (08:26)
[2018-02-07] MEDS: TRAMADOL HCL 50 MG TAB PO PRN (08:32)
[2018-02-07] MEDS: ASCORBIC ACID 500 MG TAB PO SCH (12:18)
[2018-02-07] MEDS: FERROUS SULFATE 325 MG TAB PO SCH (12:18)
--- NOTE | 2018-02-07 18:06 | Progress Note ---
Medicine Progress Note Date & Time of Visit: Feb 07, 2018 at 10:20 . Subjective CC: Follow-up visit for diarrhea, UTI, small cell carcinoma, and other problems. HPI: Did not get much sleep last night. Out of bed to chair at this morning. Son visiting. No fever. Persistent loose stools, but perhaps less frequent and not as loose. Has Gpison catheter for 24 hour urine collection. ROS: General- no fever, no chills Resp- no cough; no shortness of breath Cardiac- no chest pain, no edema GI- as noted above in HPI - Gipson cath . Objective Last 8 Hrs Date Time Temp Pulse Resp B/P (MAP) Pulse Ox O2 Delivery O2 Flow Rate FiO2 02/07/18 14:35 36.1 85 18 110/56 (74) 94 Room Air 02/07/18 12:39 Room Air 02/07/18 11:18 36.4 81 20 106/62 (77) 94 Physical Exam: General- sitting in chair at bedside, no distress Lungs- clear to auscultation; no respiratory distress Cardiovascular- RRR; no murmur or gallop appreciated; no JVD; 1+ pretibial edema Abdomen- + bowel sounds, soft, nontender - Gipson catheter draining clear urine Extremities- no cyanosis; no calf tenderness Neuro- alert, oriented x 3 Skin- warm & dry . Laboratory Results: Last 24 Hours Test 02/06/18 20:20 02/07/18 05:36 02/07/18 07:28 02/07/18 11:00 Bedside Glucose 147 mg/dl 102 mg/dl White Blood Count 8.18 K/uL Red Blood Count 3.59 M/uL Hemoglobin 11.2 g/dL Hematocrit 34.4 % Mean Corpuscular Volume 95.8 fL Mean Corpuscular Hemoglobin 31.2 pg Mean Corpuscular Hemoglobin Concent 32.6 g/dl Platelet Count 170 K/uL Mean Platelet Volume 11.4 fL Neutrophils (%) (Auto) 73.7 % Lymphocytes (%) (Auto) 11.0 % Monocytes (%) (Auto) 13.4 % Eosinophils (%) (Auto) 1.1 % Basophils (%) (Auto) 0.4 % Neutrophils # (Auto) 6.03 K/uL Lymphocytes # (Auto) 0.90 K/uL Monocytes # (Auto) 1.10 K/uL Eosinophils # (Auto) 0.09 K/uL Basophils # (Auto) 0.03 K/uL RDW Standard Deviation 52.5 fL RDW Coefficient of Variation 15.2 % Immature Granulocyte % (Auto) 0.4 % Immature Granulocyte # (Auto) 0.03 K/uL Test 02/07/18 11:33 02/07/18 16:14 Bedside Glucose 116 mg/dl 136 mg/dl Assessment & Plan DIARRHEA Presented with several weeks of diarrhea. Stool C. difficile PCR negative. Stool culture negative. Colonoscopy demonstrated sigmoid diverticulitis. Management of diverticulitis as discussed below. Neither Imodium or Lomotil very effective. Colestipol started. Collecting 24-hour urine for 5-HIAA. DIVERTICULITIS Colonoscopy revealed diverticulitis in the sigmoid colon. Allergic to quinolones. Continue cefepime and metronidazole. UTI (present on admission) Status post Botox injection for hypertonic bladder. UA showed leukocyte esterase, 10-30 WBCs. Urine culture growing Pseudomonas aeruginosa. Allergic to quinolones. Continue therapy with cefepime. ACUTE KIDNEY INJURY Serum creatinine at time of admission was 1.37. Received IV fluids. Creatinine 02/06 was 1.16. Follow. LIVER & LUNG MASSES = METASTATIC SMALL CELL CARCINOMA Noted on CT imaging; worrisome for metastatic disease. 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 Bone scan negative for metastatic disease. 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 Patient informed of results. MRI brain negative for metastatic CENA disease. Further management per Medical Oncology. CARCINOMA PROSTATE PSA = 0.042. Continue bicalutamide. CORONARY ARTERY DISEASE No anginal symptoms. Atorvastatin currently on hold. Continue aspirin and metoprolol. HYPERTENSION Continue metoprolol and lisinopril. DIABETES MELLITUS Blood sugars usually well-controlled with dietary management. Hemoglobin A1c 5.6. Blood sugars fluctuating due to acute illness. Fasting blood sugar this morning = 102. Continue NovoLog coverage as needed. ANEMIA Hemoglobin 11.3 at time of admission. Serum iron 34, TIBC 259, transferrin 200, percent transferrin sat 12, B12 1528, folate 19. No gross GI bleeding. 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 Started iron therapy. Hemoglobin today = 11.2. Monitor H&H. GENERAL DEBILITATION Multifactorial. Continue PT / OT. RESUSCITATION STATUS Patient has a living will; copy is on the chart. Patient asked about his priorities given his current healthcare status. His son was present for the conversation. Patient indicates that he does not want cardiopulmonary resuscitation or other extraordinary measures attempted at end-of-life. He prefers a comfortable/natural passing. Code status changed to "level 5" (DNR). VTE PROPHYLAXIS SQ enoxaparin. Ambulate as able. DISPOSITION Needs some assistance with ADLs. Receiving PT and OT. Inpatient rehab and skilled care discussed as options; patient plans to return home with services. Family Medicine follow-up with Dr. Barbosa. . Current Inpatient Medications: Current Inpatient Medications Medications (Trade) Dose Ordered Sig/Ena Route Start Time Stop Time Status Last Admin Dose Admin Acetaminophen (Tylenol Tab) 650 mg Q4H PRN PO 01/31/18 00:30 03/02/18 00:29 Future Hold 02/01/18 03:39 650 MG Glucose (Glucose 40% Gel) 15-30 GRAMS 15 GRAMS... UD PRN PO 01/31/18 00:30 03/02/18 00:29 Glucose (Glucose Chew Tab) 4-8 Tablets 4 Tabl... UD PRN PO 01/31/18 00:30 03/02/18 00:29 Dextrose (Dextrose 50% 50ML Syringe) 25-50ML OF 50% DW IV FOR... UD PRN IV 01/31/18 00:30 03/02/18 00:29 Glucagon (Glucagon Inj) 1 mg UD PRN SQ 01/31/18 00:30 03/02/18 00:29 Prochlorperazine Edisylate 5 mg/ Syringe 5 ml @ 5 mls/min Q6H PRN IV 01/31/18 00:30 03/02/18 00:29 Tramadol HCl (Ultram Tab) not relieved by tylenol @ Q6H PRN PO 01/31/18 00:30 03/02/18 00:29 02/07/18 08:32 50 MG Sodium Chloride ([place] Nasal [place]) 2 sprays TID NA 01/31/18 08:00 03/02/18 08:59 02/07/18 14:41 2 SPRAYS Morphine Sulfate (MoRPHine SULFATE INJ) 2 mg Q3H PRN IV 01/31/18 00:30 02/14/18 00:29 Acetaminophen (Tylenol Tab) 650 mg HS PRN PO 01/31/18 00:30 03/02/18 00:29 Future Hold Famotidine (Pepcid Tab) 40 mg HS PO 01/31/18 21:00 03/02/18 20:59 02/06/18 20:21 40 MG Lisinopril (Zestril Tab) 40 mg DAILY PO 01/31/18 08:00 03/02/18 08:59 02/07/18 08:21 40 MG Metoprolol Succinate (Toprol Xl Tab) 100 mg QAM PO 01/31/18 08:00 03/02/18 08:59 02/07/18 08:21 100 MG Mirabegron (Myrbetriq Er) 50 mg DAILY PO 01/31/18 08:00 03/02/18 08:59 02/07/18 08:21 50 MG Multivitamins (Multivitamin Tab) 1 tab QAM PO 01/31/18 08:00 03/02/18 08:59 02/07/18 08:21 1 TAB Bicalutamide (Casodex Tab) 50 mg DAILY PO 01/31/18 08:00 03/02/18 07:59 02/07/18 08:26 50 MG Miscellaneous (Iv Fluids Completed) 1 ea PRN PRN N/A 01/31/18 04:15 01/31/19 04:14 Insulin Aspart (novoLOG ASPART) SLIDING SCALE If C... ACHS SC 01/31/18 06:30 03/02/18 06:29 Amlodipine Besylate (Norvasc Tab) 10 mg HS PO 01/31/18 21:00 03/02/18 20:59 02/06/18 20:21 10 MG Miconazole Nitrate (Desenex Powder) 1 appln PRN PRN EXT 01/31/18 12:15 03/02/18 12:14 Loperamide HCl (Imodium Cap) 2 mg UD PRN PO 01/31/18 19:45 03/02/18 19:44 02/03/18 15:48 2 MG Cefepime HCl (Consult) 1 ea UD PRN N/A 02/02/18 12:37 5/23/18 12:36 Cefepime HCl 2000 mg/Syringe 20 ml @ 5 mls/min Q12H IV 02/02/18 14:00 02/12/18 13:59 02/07/18 14:40 5 MLS/MIN Furosemide (Lasix Tab) 20 mg QAM PO 02/03/18 08:00 03/05/18 07:59 02/07/18 08:21 20 MG Acetaminophen (Tylenol Tab) 1,000 mg Q6H PRN PO 02/03/18 11:00 03/05/18 10:59 Enoxaparin Sodium (Lovenox Inj) 40 mg QAM SQ 02/04/18 08:00 03/06/18 07:59 02/07/18 08:22 40 MG Aspirin (Ecotrin Tab) 81 mg QAM PO 02/04/18 08:00 03/06/18 07:59 02/07/18 08:20 81 MG Ferrous Sulfate (Feosol Tab) 325 mg DAILY@1200 PO 02/04/18 12:00 03/06/18 11:59 02/07/18 12:18 325 MG Ascorbic Acid (Vitamin C Tab) 500 mg DAILY@1200 PO 02/04/18 12:00 03/06/18 11:59 02/07/18 12:18 500 MG Fluticasone Propionate (Flonase Nasal [place]) 2 sprays BID NA 02/05/18 20:00 03/07/18 19:59 02/07/18 08:20 2 SPRAYS Colestipol HCl (Colestid Tab) 1 gm BID PO 02/05/18 20:00 03/07/18 19:59 02/07/18 08:20 1 GM Metronidazole (Flagyl Tab) 500 mg TID PO 02/06/18 20:00 02/11/18 23:59 02/07/18 14:40 500 MG Gadobutrol (Gadavist) 9 mmol UD PRN IV 02/06/18 21:30 02/10/18 21:29 Diphenoxylate HCl/ Atropine (Lomotil Tab) 1 tab TODAY@2100 ONCE PO 02/07/18 21:00 02/07/18 21:01
[2018-02-07] MEDS ORDERED: DIPHENOXYLATE/ATROPINE 2.5/0.025MG TAB PO ONE (21:00)
[2018-02-07] MEDS: FAMOTIDINE 20 MG TAB PO SCH (21:05)
[2018-02-07] MEDS: AMLODIPINE BESYLATE 5 MG TAB PO SCH (21:06)
[2018-02-08] MEDS: CEFEPIME IV 2,000 MG in SYRINGE 7.5 ML IV SCH ×2 (02:10→13:58)
[2018-02-08 04:00] VITALS: BP 135/70; PULSE 91; TEMP 36.4; O2SAT 93
[2018-02-08 06:36] LABS: ALBUMIN 2.4 gm/dl (3.4-5.0); CALCIUM 9.1 mg/dl (8.5-10.1); CREATININE 1.12 mg/dl (0.60-1.40); POTASSIUM 3.7 mmol/L (3.5-5.1)
[2018-02-08 06:38] LABS: TOTAL PROTEIN 5.7 gm/dl (6.4-8.2)
[2018-02-08 07:40] VITALS: BP 123/61; PULSE 117; TEMP 36.5; O2SAT 90
[2018-02-08] MEDS: SODIUM CHLORIDE 0.65% NA SOLN 45 ML (OCEAN) SCH ×3 (08:00→20:00)
[2018-02-08] MEDS: INSULIN ASPART 100 UNITS/ML 3 ML PEN SC SCH ×3 (08:17→16:28)
[2018-02-08] MEDS: COLESTIPOL HCL 1 GM TAB PO SCH ×2 (08:19→20:37)
[2018-02-08] MEDS: ASPIRIN 81 MG ECTAB PO SCH (08:20)
[2018-02-08] MEDS: FUROSEMIDE 20 MG TAB PO SCH (08:21)
[2018-02-08] MEDS: METRONIDAZOLE 500 MG TAB PO SCH ×3 (08:21→20:37)
[2018-02-08] MEDS: MULTIVITAMIN TAB PO SCH (08:21)
[2018-02-08] MEDS: METOPROLOL SUCC 50MG EXT REL TAB PO SCH (08:22)
[2018-02-08] MEDS: MIRABEGRON ER 25 MG TAB PO SCH (08:22)
[2018-02-08] MEDS: LISINOPRIL 40 MG TAB PO SCH (08:23)
[2018-02-08] MEDS: BICALUTAMIDE 50 MG TAB PO SCH (08:24)
[2018-02-08] MEDS: FLUTICASONE PROPIONATE NA SPR 16 GM BTL SCH ×2 (08:26→20:35)
[2018-02-08] MEDS: ENOXAPARIN 40 MG/0.4 ML SYR SQ SCH (08:27)
[2018-02-08 09:45] VITALS: PULSE 90
[2018-02-08] MEDS: FERROUS SULFATE 325 MG TAB PO SCH (11:55)
[2018-02-08] MEDS: ASCORBIC ACID 500 MG TAB PO SCH (11:56)
[2018-02-08] MEDS: LOPERAMIDE HCL 2 MG CAP PO PRN ×2 (12:20→20:33)
[2018-02-08 14:55] VITALS: BP 123/65; PULSE 109; TEMP 36.9; O2SAT 91
[2018-02-08] MEDS: TRAZODONE HCL 50 MG TAB PO SCH (20:35)
[2018-02-08] MEDS: FAMOTIDINE 20 MG TAB PO SCH (20:36)
[2018-02-08] MEDS: AMLODIPINE BESYLATE 5 MG TAB PO SCH (20:36)
--- NOTE | 2018-02-08 21:12 | Progress Note ---
Medicine Progress Note Date & Time of Visit: Feb 08, 2018 at 09:20 . Subjective CC: Follow-up visit for diarrhea, diverticulitis, UTI, small cell carcinoma, and other problems. HPI: No fever, cough, shortness of breath. No chest pain. Anorexic. No nausea or vomiting. Diarrhea worse today. Discouraged. ROS: General- no fever, no chills Resp- no cough; no shortness of breath Cardiac- no chest pain, no edema GI- as noted above in HPI - voiding without difficulty . Objective Last 8 Hrs Date Time Temp Pulse Resp B/P (MAP) Pulse Ox O2 Delivery O2 Flow Rate FiO2 02/08/18 16:00 Room Air 02/08/18 14:55 36.9 109 16 123/65 (84) 91 Room Air Physical Exam: General- lying in bed, no acute distress Lungs- clear to auscultation; no respiratory distress Cardiovascular- RRR with ectopy; no murmur or gallop appreciated; no JVD; 1+ pretibial edema Abdomen- + bowel sounds, soft, nontender Extremities- no cyanosis; no calf tenderness Neuro- alert, oriented x 3 Skin- warm & dry . Laboratory Results: Last 24 Hours Test 02/08/18 05:53 02/08/18 07:50 02/08/18 11:43 02/08/18 16:12 Sodium Level 141 mmol/L Potassium Level 3.7 mmol/L Chloride Level 113 mmol/L Carbon Dioxide Level 21 mmol/L Anion Gap 7.0 mmol/L Blood Urea Nitrogen 25 mg/dl Creatinine 1.12 mg/dl Est Creatinine Clear Calc Drug Dose 57.6 ml/min Estimated GFR () 69.5 Estimated GFR (Non- 60.0 BUN/Creatinine Ratio 22.0 Random Glucose 101 mg/dl Calcium Level 9.1 mg/dl Magnesium Level 1.9 mg/dl Total Bilirubin 0.8 mg/dl Direct Bilirubin 0.4 mg/dl Aspartate Amino Transf (AST/SGOT) 165 U/L Alanine Aminotransferase (ALT/SGPT) 30 U/L Alkaline Phosphatase 291 U/L Total Protein 5.7 gm/dl Albumin 2.4 gm/dl Bedside Glucose 99 mg/dl 127 mg/dl 123 mg/dl Test 02/08/18 19:43 Bedside Glucose 157 mg/dl Assessment & Plan DIARRHEA Presented with several weeks of diarrhea. Stool C. difficile PCR negative. Stool culture negative. Colonoscopy demonstrated sigmoid diverticulitis. Management of diverticulitis as discussed below. Neither Imodium or Lomotil very effective. Colestipol started. 24-hour urine collected for 5-HIAA. Diarrhea worse today; recheck stool for C. difficile. DIVERTICULITIS Colonoscopy revealed diverticulitis in the sigmoid colon. Allergic to quinolones. Continue cefepime and metronidazole, tentatively for 10 day course. UTI (present on admission) Status post Botox injection for hypertonic bladder. UA showed leukocyte esterase, 10-30 WBCs. Urine culture growing Pseudomonas aeruginosa. Allergic to quinolones. Continue therapy with cefepime. ACUTE KIDNEY INJURY Serum creatinine at time of admission was 1.37. Received IV fluids. Creatinine today = 1.12. Follow. LIVER & LUNG MASSES = METASTATIC SMALL CELL CARCINOMA Noted on CT imaging; worrisome for metastatic disease. 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 Bone scan negative for metastatic disease. 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 Patient informed of results. 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 Further management per Medical Oncology. CARCINOMA PROSTATE PSA = 0.042. Continue bicalutamide. CORONARY ARTERY DISEASE No anginal symptoms. Atorvastatin currently on hold. Continue aspirin and metoprolol. HYPERTENSION Continue metoprolol and lisinopril. DIABETES MELLITUS Blood sugars usually well-controlled with dietary management. Hemoglobin A1c 5.6. Blood sugars fluctuating due to acute illness. Fasting blood sugar this morning = 99. Continue NovoLog coverage as needed. ANEMIA Hemoglobin 11.3 at time of admission. Serum iron 34, TIBC 259, transferrin 200, percent transferrin sat 12, B12 1528, folate 19. No gross GI bleeding. 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 Started iron therapy. Hemoglobin 02/07 was 11.2. Monitor H&H. GENERAL DEBILITATION Multifactorial. Continue PT / OT. RESUSCITATION STATUS Patient has a living will; copy is on the chart. Code status discussed with patient on 02/07. His son was present for the conversation. Patient indicated that he does not want cardiopulmonary resuscitation or other extraordinary measures attempted at end-of-life. He prefers a comfortable/natural passing. Code status changed to "level 5" (DNR). VTE PROPHYLAXIS SQ enoxaparin. Ambulate as able. DISPOSITION Needs some assistance with ADLs. Receiving PT and OT. Inpatient rehab and skilled care discussed as options; patient plans to return home with services. Family Medicine follow-up with Dr. Barbosa. ADDENDUM: Met with patient and his son in the afternoon. Patient does not wish to pursue chemotherapy. Discharge to home with hospice vs halfway facility. Patient and family request referral to [facility]. . Current Inpatient Medications: Current Inpatient Medications Medications (Trade) Dose Ordered Sig/Ena Route Start Time Stop Time Status Last Admin Dose Admin Acetaminophen (Tylenol Tab) 650 mg Q4H PRN PO 01/31/18 00:30 03/02/18 00:29 Future Hold 02/01/18 03:39 650 MG Glucose (Glucose 40% Gel) 15-30 GRAMS 15 GRAMS... UD PRN PO 01/31/18 00:30 03/02/18 00:29 Glucose (Glucose Chew Tab) 4-8 Tablets 4 Tabl... UD PRN PO 01/31/18 00:30 03/02/18 00:29 Dextrose (Dextrose 50% 50ML Syringe) 25-50ML OF 50% DW IV FOR... UD PRN IV 01/31/18 00:30 03/02/18 00:29 Glucagon (Glucagon Inj) 1 mg UD PRN SQ 01/31/18 00:30 03/02/18 00:29 Prochlorperazine Edisylate 5 mg/ Syringe 5 ml @ 5 mls/min Q6H PRN IV 01/31/18 00:30 03/02/18 00:29 Tramadol HCl (Ultram Tab) not relieved by tylenol @ Q6H PRN PO 01/31/18 00:30 03/02/18 00:29 02/07/18 08:32 50 MG Sodium Chloride ([place] Nasal [place]) 2 sprays TID NA 01/31/18 08:00 03/02/18 08:59 02/07/18 21:07 2 SPRAYS Morphine Sulfate (MoRPHine SULFATE INJ) 2 mg Q3H PRN IV 01/31/18 00:30 02/14/18 00:29 Acetaminophen (Tylenol Tab) 650 mg HS PRN PO 01/31/18 00:30 03/02/18 00:29 Future Hold Famotidine (Pepcid Tab) 40 mg HS PO 01/31/18 21:00 03/02/18 20:59 02/08/18 20:36 40 MG Lisinopril (Zestril Tab) 40 mg DAILY PO 01/31/18 08:00 03/02/18 08:59 02/08/18 08:23 40 MG Metoprolol Succinate (Toprol Xl Tab) 100 mg QAM PO 01/31/18 08:00 03/02/18 08:59 02/08/18 08:22 100 MG Mirabegron (Myrbetriq Er) 50 mg DAILY PO 01/31/18 08:00 03/02/18 08:59 02/08/18 08:22 50 MG Multivitamins (Multivitamin Tab) 1 tab QAM PO 01/31/18 08:00 03/02/18 08:59 02/08/18 08:21 1 TAB Bicalutamide (Casodex Tab) 50 mg DAILY PO 01/31/18 08:00 03/02/18 07:59 02/08/18 08:24 50 MG Miscellaneous (Iv Fluids Completed) 1 ea PRN PRN N/A 01/31/18 04:15 01/31/19 04:14 Amlodipine Besylate (Norvasc Tab) 10 mg HS PO 01/31/18 21:00 03/02/18 20:59 02/08/18 20:36 10 MG Miconazole Nitrate (Desenex Powder) 1 appln PRN PRN EXT 01/31/18 12:15 03/02/18 12:14 Cefepime HCl (Consult) 1 ea UD PRN N/A 02/02/18 12:37 03/04/18 12:36 Cefepime HCl 2000 mg/Syringe 20 ml @ 5 mls/min Q12H IV 02/02/18 14:00 02/12/18 13:59 02/08/18 13:58 5 MLS/MIN Furosemide (Lasix Tab) 20 mg QAM PO 02/03/18 08:00 03/05/18 07:59 02/08/18 08:21 20 MG Acetaminophen (Tylenol Tab) 1,000 mg Q6H PRN PO 02/03/18 11:00 03/05/18 10:59 Enoxaparin Sodium (Lovenox Inj) 40 mg QAM SQ 02/04/18 08:00 03/06/18 07:59 02/08/18 08:27 40 MG Aspirin (Ecotrin Tab) 81 mg QAM PO 02/04/18 08:00 03/06/18 07:59 02/08/18 08:20 81 MG Ferrous Sulfate (Feosol Tab) 325 mg DAILY@1200 PO 02/04/18 12:00 03/06/18 11:59 02/08/18 11:55 325 MG Ascorbic Acid (Vitamin C Tab) 500 mg DAILY@1200 PO 02/04/18 12:00 03/06/18 11:59 02/08/18 11:56 500 MG Fluticasone Propionate (Flonase Nasal [place]) 2 sprays BID NA 02/05/18 20:00 03/07/18 19:59 02/08/18 20:35 2 SPRAYS Colestipol HCl (Colestid Tab) 1 gm BID PO 02/05/18 20:00 03/07/18 19:59 02/08/18 20:37 1 GM Metronidazole (Flagyl Tab) 500 mg TID PO 02/06/18 20:00 02/11/18 23:59 02/08/18 20:37 500 MG Gadobutrol (Gadavist) 9 mmol UD PRN IV 02/06/18 21:30 02/10/18 21:29 Trazodone HCl (Desyrel Tab) 50 mg HS PO 02/08/18 21:00 03/10/18 20:59 02/08/18 20:35 50 MG Loperamide HCl (Imodium Cap) 2 mg Q6H PRN PO 02/08/18 14:00 03/02/18 19:44 02/08/18 20:33 2 MG
[2018-02-08 21:23] VITALS: BP 129/66; PULSE 94; TEMP 36.6; O2SAT 92
[2018-02-09] VITALS (7 sets, daily range): BP systolic 110–131; BP diastolic 49–73; PULSE 84–163; TEMP 36.4–36.9; O2SAT 90–93
[2018-02-09] MEDS: CEFEPIME IV 2,000 MG in SYRINGE 7.5 ML IV SCH ×2 (01:49→14:27)
[2018-02-09] MEDS: SODIUM CHLORIDE 0.65% NA SOLN 45 ML (OCEAN) SCH ×3 (08:00→21:16)
[2018-02-09] MEDS: FLUTICASONE PROPIONATE NA SPR 16 GM BTL SCH ×2 (08:20→21:16)
[2018-02-09] MEDS: BICALUTAMIDE 50 MG TAB PO SCH (08:21)
[2018-02-09] MEDS: COLESTIPOL HCL 1 GM TAB PO SCH ×2 (08:23→21:19)
[2018-02-09] MEDS: METRONIDAZOLE 500 MG TAB PO SCH ×3 (08:26→21:17)
[2018-02-09] MEDS: ASPIRIN 81 MG ECTAB PO SCH (08:26)
[2018-02-09] MEDS: MULTIVITAMIN TAB PO SCH (08:27)
[2018-02-09] MEDS: MIRABEGRON ER 25 MG TAB PO SCH (08:27)
[2018-02-09] MEDS: FUROSEMIDE 20 MG TAB PO SCH (08:27)
[2018-02-09] MEDS: METOPROLOL SUCC 50MG EXT REL TAB PO SCH (08:28)
[2018-02-09] MEDS: LISINOPRIL 40 MG TAB PO SCH (08:28)
[2018-02-09] MEDS: ENOXAPARIN 40 MG/0.4 ML SYR SQ SCH (08:31)
[2018-02-09] MEDS: ASCORBIC ACID 500 MG TAB PO SCH (11:38)
[2018-02-09] MEDS: FERROUS SULFATE 325 MG TAB PO SCH (11:38)
[2018-02-09] MEDS: LOPERAMIDE HCL 2 MG CAP PO PRN ×2 (11:41→19:01)
--- NOTE | 2018-02-09 19:00 | Progress Note ---
Medicine Progress Note Date & Time of Visit: Feb 09, 2018 at 10:30 . Subjective CC: Follow-up visit for diarrhea, diverticulitis, UTI, small cell carcinoma, and other problems. HPI: No fever, cough, shortness of breath. No chest pain. Appetite fair. No nausea or vomiting. Persistent loose stools. No melena or hematochezia. Voiding without difficulty. ROS: As noted above. . Objective Last 8 Hrs Date Time Temp Pulse Resp B/P (MAP) Pulse Ox O2 Delivery O2 Flow Rate FiO2 02/09/18 16:20 Room Air 02/09/18 15:48 36.9 88 19 110/67 (81) 93 Room Air 02/09/18 12:55 84 92 02/09/18 11:57 36.6 85 14 119/64 (82) 92 Room Air Physical Exam: General- lying in bed, no acute distress Eyes- anicteric Lungs- clear to auscultation; no respiratory distress Cardiovascular- RRR with ectopy; no murmur or gallop appreciated; no JVD; 1+ pretibial edema Abdomen- + bowel sounds, soft, nontender Extremities- no cyanosis; no calf tenderness Neuro- alert, oriented x 3 Skin- warm & dry . Laboratory Results: Last 24 Hours Test 02/08/18 19:43 Bedside Glucose 157 mg/dl Date/Time Source Procedure Growth Status 02/09/18 10:13 Stool C.difficile Toxin B Gene (PCR) - Final No C. difficile toxin B gene detected Complete Assessment & Plan DIARRHEA Presented with several weeks of diarrhea. Stool C. difficile PCR negative. Stool culture negative. Colonoscopy demonstrated sigmoid diverticulitis. Management of diverticulitis as discussed below. Neither Imodium or Lomotil very effective. Colestipol started. Consider carcinoid synodrme- 24-hour urine collected for 5-HIAA, results pending. Repeat stool for C. difficile negative today. DIVERTICULITIS Colonoscopy revealed diverticulitis in the sigmoid colon. Allergic to quinolones. Continue cefepime and metronidazole, tentatively for ~ 10 day course (today is day # 7). UTI (present on admission) Status post Botox injection for hypertonic bladder. UA showed leukocyte esterase, 10-30 WBCs. Urine culture growing Pseudomonas aeruginosa. Allergic to quinolones. Continue therapy with cefepime for ~ 10 days. ACUTE KIDNEY INJURY Serum creatinine at time of admission was 1.37. Received IV fluids. Creatinine 02/08 was 1.12. LIVER & LUNG MASSES = METASTATIC SMALL CELL CARCINOMA Noted on CT imaging; worrisome for metastatic disease. 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 Bone scan negative for metastatic disease. 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 Patient informed of results. 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 Medical Oncology consulted. Palliative chemotherapy discussed, but patient decided not to pursue. Transition to hospice care. CARCINOMA PROSTATE PSA = 0.042. Continue bicalutamide. CORONARY ARTERY DISEASE No anginal symptoms. Atorvastatin discontinued given terminal illness. Continue aspirin and metoprolol. HYPERTENSION Continue metoprolol and lisinopril. DIABETES MELLITUS Blood sugars usually well-controlled with dietary management. Hemoglobin A1c 5.6. Blood sugars fluctuating due to acute illness. Received NovoLog coverage as needed. Fingerstick blood sugars and insulin coverage discontinued in light of his terminal illness and transition to palliative care. ANEMIA Hemoglobin 11.3 at time of admission. Serum iron 34, TIBC 259, transferrin 200, percent transferrin sat 12, B12 1528, folate 19. No gross GI bleeding. 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 Started iron therapy. Hemoglobin 02/07 was 11.2. GENERAL DEBILITATION Multifactorial. Continue PT / OT as tolerated. RESUSCITATION STATUS Patient has a living will; copy is on the chart. Code status discussed with patient on 02/07. His son was present for the conversation. Patient indicated that he does not want cardiopulmonary resuscitation or other extraordinary measures attempted at end-of-life. He prefers a comfortable/natural passing. Code status changed to "level 5" (DNR). VTE PROPHYLAXIS SQ enoxaparin. Ambulate as able. DISPOSITION Case Management consulted. Patient family interested in [facility], but considering discharge to home with hospice and other services. Family Medicine follow-up with Dr. Barbosa. . Current Inpatient Medications: Current Inpatient Medications Medications (Trade) Dose Ordered Sig/Ena Route Start Time Stop Time Status Last Admin Dose Admin Acetaminophen (Tylenol Tab) 650 mg Q4H PRN PO 01/31/18 00:30 03/02/18 00:29 Future Hold 02/01/18 03:39 650 MG Glucose (Glucose 40% Gel) 15-30 GRAMS 15 GRAMS... UD PRN PO 01/31/18 00:30 03/02/18 00:29 Glucose (Glucose Chew Tab) 4-8 Tablets 4 Tabl... UD PRN PO 01/31/18 00:30 03/02/18 00:29 Dextrose (Dextrose 50% 50ML Syringe) 25-50ML OF 50% DW IV FOR... UD PRN IV 01/31/18 00:30 03/02/18 00:29 Glucagon (Glucagon Inj) 1 mg UD PRN SQ 01/31/18 00:30 03/02/18 00:29 Prochlorperazine Edisylate 5 mg/ Syringe 5 ml @ 5 mls/min Q6H PRN IV 01/31/18 00:30 03/02/18 00:29 Tramadol HCl (Ultram Tab) not relieved by tylenol @ Q6H PRN PO 01/31/18 00:30 03/02/18 00:29 02/07/18 08:32 50 MG Sodium Chloride ([place] Nasal [place]) 2 sprays TID NA 01/31/18 08:00 03/02/18 08:59 02/07/18 21:07 2 SPRAYS Morphine Sulfate (MoRPHine SULFATE INJ) 2 mg Q3H PRN IV 01/31/18 00:30 02/14/18 00:29 Acetaminophen (Tylenol Tab) 650 mg HS PRN PO 01/31/18 00:30 03/02/18 00:29 Future Hold Famotidine (Pepcid Tab) 40 mg HS PO 01/31/18 21:00 03/02/18 20:59 02/08/18 20:36 40 MG Lisinopril (Zestril Tab) 40 mg DAILY PO 01/31/18 08:00 03/02/18 08:59 02/09/18 08:28 40 MG Metoprolol Succinate (Toprol Xl Tab) 100 mg QAM PO 01/31/18 08:00 03/02/18 08:59 02/09/18 08:28 100 MG Mirabegron (Myrbetriq Er) 50 mg DAILY PO 01/31/18 08:00 03/02/18 08:59 02/09/18 08:27 50 MG Multivitamins (Multivitamin Tab) 1 tab QAM PO 01/31/18 08:00 03/02/18 08:59 02/09/18 08:27 1 TAB Bicalutamide (Casodex Tab) 50 mg DAILY PO 01/31/18 08:00 03/02/18 07:59 02/09/18 08:21 50 MG Miscellaneous (Iv Fluids Completed) 1 ea PRN PRN N/A 01/31/18 04:15 01/31/19 04:14 Amlodipine Besylate (Norvasc Tab) 10 mg HS PO 01/31/18 21:00 03/02/18 20:59 02/08/18 20:36 10 MG Miconazole Nitrate (Desenex Powder) 1 appln PRN PRN EXT 01/31/18 12:15 03/02/18 12:14 Cefepime HCl (Consult) 1 ea UD PRN N/A 02/02/18 12:37 03/04/18 12:36 Cefepime HCl 2000 mg/Syringe 20 ml @ 5 mls/min Q12H IV 02/02/18 14:00 02/12/18 13:59 02/09/18 14:27 5 MLS/MIN Furosemide (Lasix Tab) 20 mg QAM PO 02/03/18 08:00 03/05/18 07:59 02/09/18 08:27 20 MG Acetaminophen (Tylenol Tab) 1,000 mg Q6H PRN PO 02/03/18 11:00 03/05/18 10:59 Enoxaparin Sodium (Lovenox Inj) 40 mg QAM SQ 02/04/18 08:00 03/06/18 07:59 02/09/18 08:31 40 MG Aspirin (Ecotrin Tab) 81 mg QAM PO 02/04/18 08:00 03/06/18 07:59 02/09/18 08:26 81 MG Ferrous Sulfate (Feosol Tab) 325 mg DAILY@1200 PO 02/04/18 12:00 03/06/18 11:59 02/09/18 11:38 325 MG Ascorbic Acid (Vitamin C Tab) 500 mg DAILY@1200 PO 02/04/18 12:00 03/06/18 11:59 02/09/18 11:38 500 MG Fluticasone Propionate (Flonase Nasal [place]) 2 sprays BID NA 02/05/18 20:00 03/07/18 19:59 02/09/18 08:20 2 SPRAYS Colestipol HCl (Colestid Tab) 1 gm BID PO 02/05/18 20:00 03/07/18 19:59 02/09/18 08:23 1 GM Metronidazole (Flagyl Tab) 500 mg TID PO 02/06/18 20:00 02/11/18 23:59 02/09/18 14:37 500 MG Gadobutrol (Gadavist) 9 mmol UD PRN IV 02/06/18 21:30 02/10/18 21:29 Trazodone HCl (Desyrel Tab) 50 mg HS PO 02/08/18 21:00 03/10/18 20:59 02/08/18 20:35 50 MG Loperamide HCl (Imodium Cap) 2 mg Q6H PRN PO 02/08/18 14:00 03/02/18 19:44 02/09/18 11:41 2 MG
[2018-02-09] MEDS: FAMOTIDINE 20 MG TAB PO SCH (21:17)
[2018-02-09] MEDS: AMLODIPINE BESYLATE 5 MG TAB PO SCH (21:18)
[2018-02-09] MEDS: TRAZODONE HCL 50 MG TAB PO SCH (21:19)
[2018-02-10] VITALS (8 sets, daily range): BP systolic 105–157; BP diastolic 56–77; PULSE 63–94; TEMP 36.5–36.7; O2SAT 91–96
[2018-02-10] MEDS: LOPERAMIDE HCL 2 MG CAP PO PRN ×3 (00:40→22:23)
[2018-02-10] MEDS: TRAMADOL HCL 50 MG TAB PO PRN (00:42)
[2018-02-10] MEDS: CEFEPIME IV 2,000 MG in SYRINGE 7.5 ML IV SCH ×2 (01:37→15:40)
[2018-02-10] MEDS: LISINOPRIL 40 MG TAB PO SCH (07:39)
[2018-02-10] MEDS: MIRABEGRON ER 25 MG TAB PO SCH (07:39)
[2018-02-10] MEDS: MULTIVITAMIN TAB PO SCH (07:40)
[2018-02-10] MEDS: METRONIDAZOLE 500 MG TAB PO SCH ×3 (07:40→22:17)
[2018-02-10] MEDS: ASPIRIN 81 MG ECTAB PO SCH (07:40)
[2018-02-10] MEDS: FUROSEMIDE 20 MG TAB PO SCH (07:40)
[2018-02-10] MEDS: COLESTIPOL HCL 1 GM TAB PO SCH ×2 (07:41→20:46)
[2018-02-10] MEDS: FLUTICASONE PROPIONATE NA SPR 16 GM BTL SCH ×2 (07:41→20:44)
[2018-02-10] MEDS: METOPROLOL SUCC 50MG EXT REL TAB PO SCH (07:41)
[2018-02-10] MEDS: ENOXAPARIN 40 MG/0.4 ML SYR SQ SCH (07:42)
[2018-02-10] MEDS: BICALUTAMIDE 50 MG TAB PO SCH (07:43)
[2018-02-10] MEDS: SODIUM CHLORIDE 0.65% NA SOLN 45 ML (OCEAN) SCH ×3 (07:51→20:44)
[2018-02-10 08:04] LABS: BASO % 0.6 %; BASO ABS # 0.05 K/uL (0-0.2); EOS ABS # 0.08 K/uL (0-0.5); HEMATOCRIT 34.8 % (42-52); HEMOGLOBIN 11.7 g/dL (14.0-18.0); IG# 0.03 K/uL (0.00-0.02); LYMPH % 11.9 %; LYMPH ABS # 0.98 K/uL (1.2-3.4); MEAN CELL VOLUME 96.1 fL (80-100); MEAN CORPUSCULAR HEMOGLOBIN 32.3 pg (25-34); MEAN CORPUSCULAR HGB CONC 33.6 g/dl (32-36); MEAN PLATELET VOLUME 11.1 fL (7.4-10.4); MONO % 12.4 %; MONO ABS # 1.02 K/uL (0.11-0.59); NEUT % 73.7 %; NEUT ABS # 6.08 K/uL (1.4-6.5); PLATELET COUNT 167 K/uL (130-400); RED CELL DISTRIBUTION WIDTH CV 15.8 % (11.5-14.5); RED CELL DISTRIBUTION WIDTH SD 53.7 fL (36.4-46.3); WHITE BLOOD COUNT 8.24 K/uL (4.8-10.8)
[2018-02-10 08:22] LABS: ALBUMIN 2.4 gm/dl (3.4-5.0); CALCIUM 9.3 mg/dl (8.5-10.1); CREATININE 1.26 mg/dl (0.60-1.40); POTASSIUM 4.3 mmol/L (3.5-5.1)
[2018-02-10 08:24] LABS: TOTAL PROTEIN 5.9 gm/dl (6.4-8.2)
[2018-02-10] MEDS: ASCORBIC ACID 500 MG TAB PO SCH (12:25)
[2018-02-10] MEDS: FERROUS SULFATE 325 MG TAB PO SCH (12:25)
--- NOTE | 2018-02-10 18:38 | Progress Note ---
Internal Med Progress Note Date of Service: February 10, 2018. Provider Documentation: SUBJECTIVE: Patient seen and examined earlier today. Denies acute pain or shortness of breath. Appears to be very tired. When medical doctor returned to seem him again , patient sleeping OBJECTIVE: General - laying in bed, no acute distress Eyes- anicteric Lungs- clear to auscultation; no respiratory distress Cardiovascular- RRR; no murmur or gallop appreciated; no JVD; 1+ pretibial edema Abdomen- positive bowel sounds, soft, nontender Extremities- no cyanosis; no calf tenderness ASSESSMENT & PLAN: DIARRHEA Presented with several weeks of diarrhea. Stool C. difficile PCR negative. Stool culture negative. Colonoscopy demonstrated sigmoid diverticulitis. Repeat stool for C. difficile negative. on Colestipol Consider carcinoid syndrome: 24-hour urine collected for 5-HIAA, results pending. DIVERTICULITIS Colonoscopy revealed diverticulitis in the sigmoid colon. Allergic to quinolones. Continue cefepime and metronidazole, tentatively for ~ 10 day course (today is day # 8). UTI (present on admission) Status post Botox injection for hypertonic bladder. UA showed leukocyte esterase, 10-30 WBCs. Urine culture growing Pseudomonas aeruginosa. Allergic to quinolones. Continue therapy with cefepime for ~ 10 days. ACUTE KIDNEY INJURY has received IV fluids but also is on Lasix CAD status post CABG, stenting as per records No anginal symptoms. Atorvastatin discontinued given terminal illness. Continue aspirin and metoprolol. CARCINOMA PROSTATE PSA = 0.042. Continue bicalutamide. LIVER & LUNG MASSES = METASTATIC SMALL CELL CARCINOMA Noted on CT imaging; worrisome for metastatic disease. 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 Bone scan negative for metastatic disease. Status post liver biopsy 02/04; pathology demonstrated small cell carcinoma. Patient informed of results. 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 Medical Oncology consulted. Palliative chemotherapy discussed, but patient decided not to pursue. Transitioning to hospice care. HYPERTENSION Continue metoprolol and lisinopril. DIABETES MELLITUS Hemoglobin A1c 5.6. Fingerstick blood sugars and insulin coverage discontinued in light of his terminal illness and transition to palliative care. ANEMIA Hemoglobin 11.3 at time of admission. 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 on iron therapy. VTE PROPHYLAXIS SQ enoxaparin. GENERAL DEBILITATION Multifactorial. Continue PT / OT as tolerated. RESUSCITATION STATUS Patient has a living will; copy is on the chart. Code status discussed with patient on 02/07. His son was present for the conversation. Patient indicated that he does not want cardiopulmonary resuscitation or other extraordinary measures attempted at end-of-life. He prefers a comfortable/natural passing. Code status changed to "level 5" (DNR). Family Mr. Braydon Malone, contact number [phone]. Vital Signs: Date Time Temp Pulse Resp B/P (MAP) Pulse Ox O2 Delivery O2 Flow Rate FiO2 02/10/18 16:00 Room Air 02/10/18 15:12 36.6 94 18 108/62 (77) 93 Room Air 02/10/18 11:59 36.5 63 18 157/77 (103) 95 02/10/18 11:19 36.6 91 18 115/67 (83) 96 02/10/18 08:00 Room Air 02/10/18 07:49 36.6 92 20 115/65 (82) 91 02/10/18 04:00 36.5 79 20 114/62 (79) 93 Room Air 02/10/18 00:08 Room Air 02/10/18 00:00 36.7 89 18 109/59 (76) 91 Room Air 02/09/18 19:41 104 02/09/18 19:04 36.7 163 22 131/73 (92) 92 Room Air Lab Results: Results Past 24 Hours Test 02/10/18 07:52 Range/Units White Blood Count 8.24 4.8-10.8 K/uL Red Blood Count 3.62 4.7-6.1 M/uL Hemoglobin 11.7 14.0-18.0 g/dL Hematocrit 34.8 42-52 % Mean Corpuscular Volume 96.1 80-100 fL Mean Corpuscular Hemoglobin 32.3 25-34 pg Mean Corpuscular Hemoglobin Concent 33.6 32-36 g/dl Platelet Count 167 130-400 K/uL Mean Platelet Volume 11.1 7.4-10.4 fL Neutrophils (%) (Auto) 73.7 % Lymphocytes (%) (Auto) 11.9 % Monocytes (%) (Auto) 12.4 % Eosinophils (%) (Auto) 1.0 % Basophils (%) (Auto) 0.6 % Neutrophils # (Auto) 6.08 1.4-6.5 K/uL Lymphocytes # (Auto) 0.98 1.2-3.4 K/uL Monocytes # (Auto) 1.02 0.11-0.59 K/uL Eosinophils # (Auto) 0.08 0-0.5 K/uL Basophils # (Auto) 0.05 0-0.2 K/uL RDW Standard Deviation 53.7 36.4-46.3 fL RDW Coefficient of Variation 15.8 11.5-14.5 % Immature Granulocyte % (Auto) 0.4 % Immature Granulocyte # (Auto) 0.03 0.00-0.02 K/uL Sodium Level 143 136-145 mmol/L Potassium Level 4.3 3.5-5.1 mmol/L Chloride Level 113 98-107 mmol/L Carbon Dioxide Level 22 21-32 mmol/L Anion Gap 8.0 3-11 mmol/L Blood Urea Nitrogen 30 7-18 mg/dl Creatinine 1.26 0.60-1.40 mg/dl Est Creatinine Clear Calc Drug Dose 51.4 ml/min Estimated GFR () 60.3 Estimated GFR (Non- 52.0 BUN/Creatinine Ratio 24.0 10-20 Random Glucose 100 70-99 mg/dl Calcium Level 9.3 8.5-10.1 mg/dl Total Bilirubin 0.8 0.2-1 mg/dl Aspartate Amino Transf (AST/SGOT) 161 15-37 U/L Alanine Aminotransferase (ALT/SGPT) 25 12-78 U/L Alkaline Phosphatase 244 45-117 U/L Total Protein 5.9 6.4-8.2 gm/dl Albumin 2.4 3.4-5.0 gm/dl Globulin 3.5 2.5-4.0 gm/dl Albumin/Globulin Ratio 0.7 0.9-2
[2018-02-10] MEDS: FAMOTIDINE 20 MG TAB PO SCH (22:17)
[2018-02-10] MEDS: AMLODIPINE BESYLATE 5 MG TAB PO SCH (22:18)
[2018-02-10] MEDS: TRAZODONE HCL 50 MG TAB PO SCH (22:18)
[2018-02-11] MEDS: CEFEPIME IV 2,000 MG in SYRINGE 7.5 ML IV SCH ×2 (01:55→13:58)
[2018-02-11 04:39] VITALS: BP 110/61; PULSE 104; TEMP 36.7; O2SAT 92
[2018-02-11 07:23] VITALS: BP 110/49; PULSE 90; TEMP 36.5; O2SAT 91
[2018-02-11] MEDS ORDERED: TRAMADOL HCL 50 MG TAB PO STA (09:32)
[2018-02-11] MEDS ORDERED: MoRPHine SULFATE 4 MG/ML 1 ML CARP\\VIAL IV STA (09:32)
[2018-02-11] MEDS: FLUTICASONE PROPIONATE NA SPR 16 GM BTL SCH ×2 (09:39→20:58)
[2018-02-11] MEDS: SODIUM CHLORIDE 0.65% NA SOLN 45 ML (OCEAN) SCH ×3 (09:39→20:58)
[2018-02-11] MEDS ORDERED: LIDODERM (LIDOCAINE) PATCH 5% TD ONE (09:45)
[2018-02-11] MEDS: COLESTIPOL HCL 1 GM TAB PO SCH ×2 (09:45→20:58)
[2018-02-11] MEDS: FUROSEMIDE 20 MG TAB PO SCH (09:46)
[2018-02-11] MEDS: LISINOPRIL 40 MG TAB PO SCH (09:46)
[2018-02-11] MEDS: MIRABEGRON ER 25 MG TAB PO SCH (09:46)
[2018-02-11] MEDS: ASPIRIN 81 MG ECTAB PO SCH (09:46)
[2018-02-11] MEDS: METOPROLOL SUCC 50MG EXT REL TAB PO SCH (09:47)
[2018-02-11] MEDS: MULTIVITAMIN TAB PO SCH (09:47)
[2018-02-11] MEDS: METRONIDAZOLE 500 MG TAB PO SCH ×3 (09:47→20:58)
[2018-02-11] MEDS: ENOXAPARIN 40 MG/0.4 ML SYR SQ SCH (09:48)
[2018-02-11] MEDS: BICALUTAMIDE 50 MG TAB PO SCH (09:56)
[2018-02-11] MEDS: ASCORBIC ACID 500 MG TAB PO SCH (11:40)
--- NOTE | 2018-02-11 15:04 | Progress Note ---
Internal Med Progress Note Date of Service: February 11, 2018. Provider Documentation: SUBJECTIVE: Patient seen today. Patient laying on bed and reported back pain. Medical doctor and nurse helped patient bed to be repositioned on the bed and pain medications were adjusted. OBJECTIVE: General - generally fatigued on the bed, minimal exertional activities Lungs- clear to auscultation, no wheezing Cardiovascular- RRR; no murmur or gallop appreciated; no JVD Abdomen- positive bowel sounds, soft, nontender Extremities- no gross swelling ASSESSMENT & PLAN: DIARRHEA Presented with several weeks of diarrhea. Stool C. difficile PCR negative. Stool culture negative. Colonoscopy demonstrated sigmoid diverticulitis. Repeat stool for C. difficile negative. on Colestipol and Loperamide Consider carcinoid syndrome: 24-hour urine collected for 5-HIAA, results pending. DIVERTICULITIS Colonoscopy revealed diverticulitis in the sigmoid colon. Allergic to quinolones. Continue cefepime and metronidazole, tentatively for ~ 10 day course (today is day # 9). UTI (present on admission) Status post Botox injection for hypertonic bladder. UA showed leukocyte esterase, 10-30 WBCs. Urine culture growing Pseudomonas aeruginosa. Allergic to quinolones. Continue therapy with cefepime which is to be completed by tomorrow. ACUTE KIDNEY INJURY has received IV fluids but also is on Lasix stop Lasix given minimal oral intake CAD status post CABG, stenting as per records No anginal symptoms. Atorvastatin discontinued given terminal illness. Continue aspirin and metoprolol. CARCINOMA PROSTATE PSA = 0.042. Continue bicalutamide. LIVER & LUNG MASSES = METASTATIC SMALL CELL CARCINOMA Noted on CT imaging; worrisome for metastatic disease. 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 Bone scan negative for metastatic disease. Status post liver biopsy 02/04; pathology demonstrated small cell carcinoma. Patient informed of results. MRI brain negative for metastatic AUDIO VISUAL TECH disease. Medical Oncology consulted. Palliative chemotherapy discussed, but patient decided not to pursue. Transitioning to hospice care. BACK PAIN -middle back pain -tramadol, Lidocaine patch HYPERTENSION Continue metoprolol and lisinopril. DIABETES MELLITUS Hemoglobin A1c 5.6. Fingerstick blood sugars and insulin coverage had been discontinued in light of his terminal illness and transition to palliative care. ANEMIA Hemoglobin 11.3 at time of admission. 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 has been on iron therapy, iron stopped given poor oral intake VTE PROPHYLAXIS SQ enoxaparin. GENERAL DEBILITATION Multifactorial. Continue PT / OT as tolerated. RESUSCITATION STATUS Patient has a living will; copy is on the chart. Code status discussed with patient on 02/07. His son was present for the conversation. Patient indicated that he does not want cardiopulmonary resuscitation or other extraordinary measures attempted at end-of-life. He prefers a comfortable/natural passing. Code status changed to "level 5" (DNR). Family Mr. Braydon Malone, contact number [phone]. Disposition: awaiting case management to help family set up home hospice services Vital Signs: Date Time Temp Pulse Resp B/P (MAP) Pulse Ox O2 Delivery O2 Flow Rate FiO2 02/11/18 09:15 Room Air 02/11/18 07:23 36.5 90 18 110/49 (69) 91 Room Air 02/11/18 04:39 36.7 104 20 110/61 (77) 92 Room Air 02/11/18 00:15 Room Air 02/10/18 23:41 36.6 88 20 105/56 (72) 92 Room Air 02/10/18 22:16 91 106/63 (77) 02/10/18 20:00 Room Air 02/10/18 16:00 Room Air 02/10/18 15:12 36.6 94 18 108/62 (77) 93 Room Air
[2018-02-11 15:13] VITALS: BP 97/51; PULSE 86; TEMP 36.6; O2SAT 92
[2018-02-11] MEDS: SODIUM CHLORIDE 0.9% 1000ML 1,000 ML IV SCH (16:36)
[2018-02-11] MEDS: TRAMADOL HCL 50 MG TAB PO SCH (18:30)
[2018-02-11] MEDS: FAMOTIDINE 20 MG TAB PO SCH (20:59)
[2018-02-11] MEDS: AMLODIPINE BESYLATE 5 MG TAB PO SCH (20:59)
[2018-02-12 00:33] VITALS: BP 105/54; PULSE 88; TEMP 36.6; O2SAT 90
[2018-02-12] MEDS: CEFEPIME IV 2,000 MG in SYRINGE 7.5 ML IV SCH (02:21)
[2018-02-12 04:01] VITALS: BP 112/54; PULSE 90; TEMP 36.4; O2SAT 91
[2018-02-12] MEDS: SODIUM CHLORIDE 0.9% 1000ML 1,000 ML IV SCH (04:25)
[2018-02-12] MEDS: TRAMADOL HCL 50 MG TAB PO SCH ×2 (05:16→18:43)
[2018-02-12 07:26] VITALS: BP 103/52; PULSE 94; TEMP 36.7; O2SAT 91
[2018-02-12] MEDS: SODIUM CHLORIDE 0.65% NA SOLN 45 ML (OCEAN) SCH ×3 (07:26→20:00)
[2018-02-12] MEDS: MULTIVITAMIN TAB PO SCH (07:26)
[2018-02-12] MEDS: FLUTICASONE PROPIONATE NA SPR 16 GM BTL SCH ×2 (07:26→20:36)
[2018-02-12] MEDS: METOPROLOL SUCC 50MG EXT REL TAB PO SCH (07:27)
[2018-02-12] MEDS: ASPIRIN 81 MG ECTAB PO SCH (07:27)
[2018-02-12] MEDS: COLESTIPOL HCL 1 GM TAB PO SCH ×2 (07:27→20:21)
[2018-02-12] MEDS: MIRABEGRON ER 25 MG TAB PO SCH (07:28)
[2018-02-12] MEDS: LISINOPRIL 40 MG TAB PO SCH (07:28)
[2018-02-12] MEDS: ENOXAPARIN 40 MG/0.4 ML SYR SQ SCH (07:29)
[2018-02-12] MEDS: LIDODERM (LIDOCAINE) PATCH 5% TD SCH (07:46)
[2018-02-12] MEDS: ASCORBIC ACID 500 MG TAB PO SCH (11:53)
[2018-02-12 15:13] VITALS: BP 110/63; PULSE 74; TEMP 36.7; O2SAT 92
--- NOTE | 2018-02-12 18:31 | Progress Note ---
Internal Med Progress Note Date of Service: February 12, 2018. Provider Documentation: SUBJECTIVE: Patient denies acute pain today OBJECTIVE: General - generally fatigued on the bed, minimal exertional activities Lungs- clear to auscultation, no wheezing Cardiovascular- RRR; no murmur or gallop appreciated; no JVD Abdomen- positive bowel sounds, soft, nontender Extremities- some swelling of lower extremities ASSESSMENT & PLAN: DIARRHEA Presented with several weeks of diarrhea. Stool C. difficile PCR negative. Stool culture negative. Colonoscopy demonstrated sigmoid diverticulitis. Repeat stool for C. difficile negative. on Colestipol and Loperamide Consider carcinoid syndrome: 24-hour urine collected for 5-HIAA, results pending. DIVERTICULITIS Colonoscopy revealed diverticulitis in the sigmoid colon. Allergic to quinolones. Completed cefepime and metronidazole 10 day course UTI (present on admission) Status post Botox injection for hypertonic bladder. UA showed leukocyte esterase, 10-30 WBCs. Urine culture growing Pseudomonas aeruginosa. Allergic to quinolones. Completed cefepime and metronidazole 10 day course ACUTE KIDNEY INJURY IV fluids stopped as there is leg swelling CAD status post CABG, stenting as per records No anginal symptoms. Atorvastatin discontinued given terminal illness. Continue aspirin and metoprolol. CARCINOMA PROSTATE PSA = 0.042. bicalutamide stopped as per family's wishes given stage IV cancer LIVER & LUNG MASSES = METASTATIC SMALL CELL CARCINOMA Noted on CT imaging; worrisome for metastatic disease. History of carcinoma of the prostate Bone scan negative for metastatic disease. Status post liver biopsy 02/04; pathology demonstrated small cell carcinoma. Patient informed of results. 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 Medical Oncology consulted. Palliative chemotherapy discussed, but patient decided not to pursue. Hospice care. BACK PAIN -middle back pain -tramadol, Lidocaine patch HYPERTENSION Continue metoprolol and lisinopril. DIABETES MELLITUS Hemoglobin A1c 5.6. Fingerstick blood sugars and insulin coverage had been discontinued ANEMIA Hemoglobin 11.3 at time of admission. 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 has been on iron therapy, iron stopped given poor oral intake VTE PROPHYLAXIS SQ enoxaparin. GENERAL DEBILITATION Multifactorial. Continue PT / OT as tolerated. RESUSCITATION STATUS DNR Hospital Hospice status: however, patient's family members still want IV fluids if needed, cardiovascular medications to be given, and DVT prophylaxis medications to be given Family Mr. Braydon Malone, contact number [phone]. Vital Signs: Date Time Temp Pulse Resp B/P (MAP) Pulse Ox O2 Delivery O2 Flow Rate FiO2 02/12/18 15:13 36.7 74 20 110/63 (79) 92 Room Air 02/12/18 07:30 Room Air 02/12/18 07:26 36.7 94 18 103/52 (69) 91 Room Air 02/12/18 04:01 36.4 90 20 112/54 (73) 91 Room Air 02/12/18 00:33 36.6 88 18 105/54 (71) 90 Room Air 02/12/18 00:30 Room Air
[2018-02-12 19:49] VITALS: BP 104/55; PULSE 91; TEMP 36.6; O2SAT 91
[2018-02-12] MEDS: FAMOTIDINE 20 MG TAB PO SCH (20:21)
[2018-02-12] MEDS: AMLODIPINE BESYLATE 5 MG TAB PO SCH (20:21)
[2018-02-12 22:30] VITALS: BP 120/67; PULSE 90; TEMP 36.6; O2SAT 91
[2018-02-13 07:25] VITALS: BP 111/61; PULSE 95; TEMP 36.2; O2SAT 91
[2018-02-13] MEDS: LIDODERM (LIDOCAINE) PATCH 5% TD SCH (08:00)
[2018-02-13] MEDS: TRAMADOL HCL 50 MG TAB PO SCH ×2 (08:06→18:02)
[2018-02-13] MEDS: ENOXAPARIN 40 MG/0.4 ML SYR SQ SCH (08:06)
[2018-02-13] MEDS: COLESTIPOL HCL 1 GM TAB PO SCH ×2 (08:07→20:43)
[2018-02-13] MEDS: MIRABEGRON ER 25 MG TAB PO SCH (08:07)
[2018-02-13] MEDS: SODIUM CHLORIDE 0.65% NA SOLN 45 ML (OCEAN) SCH ×3 (08:07→20:42)
[2018-02-13] MEDS: LISINOPRIL 40 MG TAB PO SCH (08:07)
[2018-02-13] MEDS: ASPIRIN 81 MG ECTAB PO SCH (08:07)
[2018-02-13] MEDS: FLUTICASONE PROPIONATE NA SPR 16 GM BTL SCH ×2 (08:07→20:42)
[2018-02-13] MEDS: METOPROLOL SUCC 50MG EXT REL TAB PO SCH (08:09)
[2018-02-13] MEDS: MULTIVITAMIN TAB PO SCH (08:09)
[2018-02-13] MEDS ORDERED: CYCLOBENZAPRINE HCL 5 MG TAB PO STA (09:53)
[2018-02-13] MEDS: ASCORBIC ACID 500 MG TAB PO SCH (11:00)
[2018-02-13] MEDS: CYCLOBENZAPRINE HCL 5 MG TAB PO SCH ×2 (13:58→20:43)
[2018-02-13 14:56] VITALS: BP 120/62; PULSE 94; TEMP 36.6; O2SAT 92
--- NOTE | 2018-02-13 19:33 | Progress Note ---
Internal Med Progress Note Date of Service: February 13, 2018. Provider Documentation: SUBJECTIVE: Decision was made yesterday that patient may be inpatient hospice care. Patient' s son outlined that patient should continue to get oral cardiovascular medications and IV fluids if needed. This morning nurse has reported to medical doctor that patient cannot take pills whole because he keeps it in his mouth but doing okay with crushed pills. Problem is that patient would not be able to take long acting oral metoprolol. If heart rate were to become elevated without long acting beta samuel then the alternative would be to give IV metoprolol but this can be only given on telemetry floor. At this point in time the oral metoprolol has been held and heart rate stable. Have discussed with patient's son again about goals of care. There is some indecision on the part of patient's son on what to do if the heart rate becomes elevated when on the medical eng. If this situation were to occur, medical doctor available on the [facility] shift lead or day shift should call the patient's son on whether to treat with telemetry monitoring and IV beta blockers or IV calcium channel blockers. OBJECTIVE: General - generally fatigued on the bed, minimal exertional activities Lungs- clear to auscultation, no wheezing Cardiovascular- RRR; no murmur or gallop appreciated; no JVD Abdomen- positive bowel sounds, soft, nontender Extremities- some swelling of lower extremities ASSESSMENT & PLAN: This is an 82 year old M who on this admission presented with several weeks of diarrhea Patient with history of prostate cancer, then found on this admission to have metastatic small cell carcinoma on liver biopsy Medical Oncology consulted. Palliative chemotherapy discussed, but patient decided not to pursue During this evaluation, patient noted to have poor functional status. And while goals of care was transitioning to not treating the cancer with palliative focus , the patient also completed cefepime and metronidazole 10 day course for Diverticulitis and UTI with Pseudomonas Initially the hospital discharge was planned for home hospice but as patient's family members could not find enough sofa cover inspector support at home, the plan was changed to inpatient hospice However patient's family member his sons have outlined parameters of care which is not consistent with hospice care. They would like IV fluids, cardiovascular medications, DVT prophylaxis Patient's son also allowing for labs if this helps with monitoring hydration status. Patient noted to have difficulties with swallowing pills but can take crushed pills. NG or OG tube is not permitted by patient's family Originally had metoprolol succinate 100 mg daily as part of the medication regimen. Since patient could not take this medication orally, medical doctor continued with addressing goals of care with patient's son and it is unclear at this time whether medical team should aggressively control heart rate if patient becomes tachycardic such as telemetry monitoring and IV rate control medicines. The patient's son not able to clearly define for medical team what to do. Will transition metoprolol as metoprolol tartrate 25 mg q8 hours as crushed to allow for short acting heart rate control. Also medical team should call patient's son Braydon Malone [phone] if patient becomes tachycardic or hemodynamically unstable. Patient's code status is Level 5 DNR/DNI Other health issues Metastatic cancer as above Prostate cancer and no longer on bicalutamide stopped as per family's wishes given stage IV cancer History of CAD status post CABG, stenting as per records: continue a beta samuel as addressed above for heart rate control, lisinopril for blood pressure control, aspirin and Lovenox for DVT ppx IV fluids stopped as there is leg swelling, monitor intake , patient's son did allow for labs to be drawn, monitor BUN/creatinine and continue IV fluids if noted to be dehydrated on Colestipol and Loperamide for diarrhea - still having some loose stools Back pain : tramadol, Lidocaine patch, Flexeril Anemia: no acute bleeds currently Vital Signs: Date Time Temp Pulse Resp B/P (MAP) Pulse Ox O2 Delivery O2 Flow Rate FiO2 02/13/18 16:22 Room Air 02/13/18 14:56 36.6 94 20 120/62 (81) 92 02/13/18 08:30 Room Air 02/13/18 07:25 36.2 95 20 111/61 (78) 91 02/13/18 00:30 Room Air 02/12/18 22:30 36.6 90 24 120/67 (84) 91 Room Air 02/12/18 19:49 36.6 91 16 104/55 (71) 91 Room Air
[2018-02-13] MEDS: METOPROLOL TARTRATE 25 MG TAB PO SCH (20:43)
[2018-02-13] MEDS: AMLODIPINE BESYLATE 5 MG TAB PO SCH (20:43)
[2018-02-13] MEDS: FAMOTIDINE 20 MG TAB PO SCH (20:43)
[2018-02-14] MEDS: METOPROLOL TARTRATE 25 MG TAB PO SCH ×4 (06:00→21:33)
[2018-02-14] MEDS: ASPIRIN 81 MG ECTAB PO SCH (08:00)
[2018-02-14] MEDS: MIRABEGRON ER 25 MG TAB PO SCH (08:00)
[2018-02-14] MEDS: COLESTIPOL HCL 1 GM TAB PO SCH ×2 (08:00→20:00)
[2018-02-14 08:03] LABS: ALBUMIN 2.2 gm/dl (3.4-5.0); CALCIUM 8.7 mg/dl (8.5-10.1); CREATININE 2.89 mg/dl (0.60-1.40); POTASSIUM 5.2 mmol/L (3.5-5.1)
[2018-02-14 08:06] LABS: TOTAL PROTEIN 6.1 gm/dl (6.4-8.2)
[2018-02-14] MEDS: TRAMADOL HCL 50 MG TAB PO SCH (08:08)
[2018-02-14] MEDS: LISINOPRIL 40 MG TAB PO SCH (08:08)
[2018-02-14] MEDS: CYCLOBENZAPRINE HCL 5 MG TAB PO SCH ×3 (08:09→20:00)
[2018-02-14] MEDS: MULTIVITAMIN TAB PO SCH (08:09)
[2018-02-14] MEDS: ENOXAPARIN 40 MG/0.4 ML SYR SQ SCH (08:10)
[2018-02-14] MEDS: LIDODERM (LIDOCAINE) PATCH 5% TD SCH (08:10)
[2018-02-14] MEDS: SODIUM CHLORIDE 0.65% NA SOLN 45 ML (OCEAN) SCH ×3 (08:11→20:00)
[2018-02-14] MEDS: FLUTICASONE PROPIONATE NA SPR 16 GM BTL SCH ×2 (08:11→20:00)
[2018-02-14 08:12] VITALS: BP 122/67; PULSE 106; TEMP 36.7; O2SAT 90
--- NOTE | 2018-02-14 11:11 | Progress Note ---
Internal Med Progress Note Date of Service: February 14, 2018. Provider Documentation: SUBJECTIVE: Patient's nurse reported that the patient has been refusing oral medications even the one that are crushed. When medical provider examined the patient at bedside, patient's son Braydon Malone was present, and nurse was able to have patient take some oral medications. Patient's heart rate relatively well controlled. Continues to be hemodynamically stable. Continues to be on room air. Patient denies acute pain. His creatinine is elevated today and as per agreement with patient's son, IV fluids started. Repeat renal labs ordered for tomorrow. After discussing medical plan with the patient's son and affirming that these measures are permitted, the patient's son requested a different physician to continue the overall care of his father. OBJECTIVE: General - generally fatigued on the bed Lungs- clear to auscultation, no wheezing Cardiovascular- RRR; no murmur or gallop appreciated; no JVD Abdomen- positive bowel sounds, soft, nontender Extremities- some swelling of lower extremities Neuro - awake and verbal but does not carry any extensive conversation ASSESSMENT & PLAN: This is an 82 year old M who on this admission presented with several weeks of diarrhea Patient with history of prostate cancer, then found on this admission to have metastatic small cell carcinoma on liver biopsy Medical Oncology consulted. Palliative chemotherapy discussed, but patient decided not to pursue During this evaluation, patient noted to have poor functional status. And while goals of care was transitioning to not treating the cancer and with palliative focus, the patient also completed cefepime and metronidazole 10 day course for Diverticulitis and UTI with Pseudomonas Initially the hospital discharge was planned for home hospice but as patient's family members could not find enough stationary equipment mechanic support at home, the plan was changed to inpatient hospice However patient's family member his sons have outlined parameters of care which does not appear to be consistent with hospice care. They would like IV fluids, cardiovascular medications, DVT prophylaxis Patient's son also allowing for labs if this helps with monitoring hydration status. Patient noted on 02/13/18 to have difficulties with swallowing pills but can take crushed pills. NG or OG tube is not permitted by patient's family Originally had metoprolol succinate 100 mg daily as part of the medication regimen. Since patient could not take this medication orally, medical doctor continued with addressing goals of care with patient's son and it has been unclear at this time whether medical team should aggressively control heart rate if patient becomes tachycardic such as telemetry monitoring and IV rate control medicines. The patient's son not able to clearly define for medical team what to do. No cardiovascular events overnight as the metoprolol succinate was transitioned metoprolol tartrate 25 mg q8 hours as crushed to allow for short acting heart rate control. In the AM of 02/14/18, Patient's nurse reported that the patient has been refusing oral medications even the one that are crushed. Patient's son would like patient to have these medications available and given if possible but that the patient can refuse medications Patient;s comprehensive metabolic panel on 02/14/18 notable for Acute kidney injury with serum potassium 5.2 and mildly worsening transaminitis compared to previous labs. IV fluids started as per agreement with the patient's son. medical team should call patient's son Braydon Malone [phone] if patient becomes tachycardic or hemodynamically unstable. Patient's code status is Level 5 DNR/DNI Other health issues Metastatic cancer as above Prostate cancer and no longer on bicalutamide stopped as per family's wishes given stage IV cancer History of CAD status post CABG, stenting as per records: continue a beta samuel as addressed above for heart rate control, lisinopril for blood pressure control, aspirin and Lovenox for DVT ppx IV fluids stopped as there is leg swelling, monitor intake , patient's son did allow for labs to be drawn, monitor BUN/creatinine and continue IV fluids if noted to be dehydrated on Colestipol and Loperamide for diarrhea - still having some loose stools Back pain : tramadol, Lidocaine patch, Flexeril Anemia: no acute bleeds currently Disposition: patient remains in the hospital. status of whether patient is inpatient hospice or not is unclear. patient's son, Braydon Malone, asked for a different physician to continue the overall care of his father. I have discussedthe case with my hospitalist colleague Dr. Lopez and he has agreed to be the patient's attending physician Vital Signs: Date Time Temp Pulse Resp B/P (MAP) Pulse Ox O2 Delivery O2 Flow Rate FiO2 02/14/18 08:12 36.7 106 20 122/67 (85) 90 Room Air 02/14/18 08:00 Room Air 02/14/18 00:00 Room Air 02/13/18 16:22 Room Air 02/13/18 14:56 36.6 94 20 120/62 (41) 92 Lab Results: Results Past 24 Hours Test 02/14/18 07:01 Range/Units Sodium Level 142 136-145 mmol/L Potassium Level 5.2 3.5-5.1 mmol/L Chloride Level 113 98-107 mmol/L Carbon Dioxide Level 18 21-32 mmol/L Anion Gap 11.0 3-11 mmol/L Blood Urea Nitrogen 64 7-18 mg/dl Creatinine 2.89 0.60-1.40 mg/dl Est Creatinine Clear Calc Drug Dose 22.2 ml/min Estimated GFR () 22.1 Estimated GFR (Non- 19.1 BUN/Creatinine Ratio 22.0 10-20 Random Glucose 77 70-99 mg/dl Calcium Level 8.7 8.5-10.1 mg/dl Total Bilirubin 0.8 0.2-1 mg/dl Aspartate Amino Transf (AST/SGOT) 181 15-37 U/L Alanine Aminotransferase (ALT/SGPT) 32 12-78 U/L Alkaline Phosphatase 211 45-117 U/L Total Protein 6.1 6.4-8.2 gm/dl Albumin 2.2 3.4-5.0 gm/dl Globulin 3.9 2.5-4.0 gm/dl Albumin/Globulin Ratio 0.6 0.9-2
--- NOTE | 2018-02-14 11:40 | Progress Note ---
Medicine Progress Note Date & Time of Visit: February 14, 2018 at 11:40. Subjective seen patient at bedside drowsy opens eyes to verbal stimuli but immediately drifts back to sleep not in distress, no signs of discomfort per son, patient's appetite is poor but no signs of pain, shortness of breath, nausea no other symptoms discussed medical condition and plan of care at length and in detail with patient's son brayan, daughter in law as well they are aware of the patient's very poor medical condition and prognosis they would like for him to continue essential medications and is ok not to be taken if he declines they request to continue IV fluids at the meantime still maintain comfort as top priority through this phase Objective Last 8 Hrs Date Time Temp Pulse Resp B/P (MAP) Pulse Ox O2 Delivery O2 Flow Rate FiO2 02/14/18 08:12 36.7 106 20 122/67 (85) 90 Room Air 02/14/18 08:00 Room Air Physical Exam: General- drowsy, not in distress, no acc muscle use Neck- no JVD Lungs- clear breath sounds bilaterally Heart- regular rhythm; no murmur, normal rate Abdomen- normal bowel sounds, soft, nontender,non distended Extremities-no lower leg edema, no calf tenderness, warmth, erythema Neuro- drowsy Skin- warm & dry Laboratory Results: Last 24 Hours Test 02/14/18 07:01 Sodium Level 142 mmol/L Potassium Level 5.2 mmol/L Chloride Level 113 mmol/L Carbon Dioxide Level 18 mmol/L Anion Gap 11.0 mmol/L Blood Urea Nitrogen 64 mg/dl Creatinine 2.89 mg/dl Est Creatinine Clear Calc Drug Dose 22.2 ml/min Estimated GFR () 22.1 Estimated GFR (Non- 19.1 BUN/Creatinine Ratio 22.0 Random Glucose 77 mg/dl Calcium Level 8.7 mg/dl Total Bilirubin 0.8 mg/dl Aspartate Amino Transf (AST/SGOT) 181 U/L Alanine Aminotransferase (ALT/SGPT) 32 U/L Alkaline Phosphatase 211 U/L Total Protein 6.1 gm/dl Albumin 2.2 gm/dl Globulin 3.9 gm/dl Albumin/Globulin Ratio 0.6 Assessment & Plan 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 will consult Palliative Care when they become available on Friday -- if patient develops respiratory distress, start with low dose Morphine 2mg IV q4h then titrate accordingly ACUTE RENAL FAILURE ON CKD 3 likely Prerenal patient has poor oral intake trial of IV fluids hold Lisinopril Renal US monitor crea RECURRENT DIARRHEA treated with abx for Diverticulitis continue Colestipol UTI, Pseudomonas s/p antibiotics PROSTATE CANCER on BECALUTAMIDE chemotherapy has been discontinued CAD status post CABG,s/p Stent continue Metoprolol to avoid tachycardia HYPERTENSION hold Lisinopril due to acute renal failure hold Amlodipine to avoid hypotension continue Metoprolol DM2, diet controlled, well controlled DVT prophylaxis change Lovenox to Heparin as patient has Cr Cl <30 Disposition pending Current Inpatient Medications: Current Inpatient Medications Medications (Trade) Dose Ordered Sig/Ena Route Start Time Stop Time Status Last Admin Dose Admin Dextrose (Dextrose 50% 50ML Syringe) 25-50ML OF 50% DW IV FOR... UD PRN IV 01/31/18 00:30 03/02/18 00:29 Prochlorperazine Edisylate 5 mg/ Syringe 5 ml @ 5 mls/min Q6H PRN IV 01/31/18 00:30 03/02/18 00:29 Sodium Chloride ([place]right Nasal [place]) 2 sprays TID NA 01/31/18 08:00 03/02/18 08:59 02/14/18 08:11 2 SPRAYS Famotidine (Pepcid Tab) 40 mg HS PO 01/31/18 21:00 03/02/18 20:59 02/12/18 20:21 40 MG Mirabegron (Myrbetriq Er) 50 mg DAILY PO 01/31/18 08:00 03/02/18 08:59 02/13/18 08:07 50 MG Multivitamins (Multivitamin Tab) 1 tab QAM PO 01/31/18 08:00 03/02/18 08:59 02/14/18 08:09 1 TAB Miscellaneous (Iv Fluids Completed) 1 ea PRN PRN N/A 01/31/18 04:15 01/31/19 04:14 Miconazole Nitrate (Desenex Powder) 1 appln PRN PRN EXT 01/31/18 12:15 03/02/18 12:14 02/12/18 13:13 1 APPLN Acetaminophen (Tylenol Tab) 1,000 mg Q6H PRN PO 02/03/18 11:00 03/05/18 10:59 Aspirin (Ecotrin Tab) 81 mg QAM PO 02/04/18 08:00 03/06/18 07:59 02/13/18 08:07 81 MG Ascorbic Acid (Vitamin C Tab) 500 mg DAILY@1200 PO 02/04/18 12:00 03/06/18 11:59 02/13/18 11:00 500 MG Fluticasone Propionate (Flonase Nasal [place]) 2 sprays BID NA 02/05/18 20:00 03/07/18 19:59 02/14/18 08:11 2 SPRAYS Colestipol HCl (Colestid Tab) 1 gm BID PO 02/05/18 20:00 03/07/18 19:59 02/13/18 08:07 1 GM Loperamide HCl (Imodium Cap) 2 mg Q6H PRN PO 02/08/18 14:00 03/02/18 19:44 02/10/18 22:23 2 MG Lidocaine (Lidoderm Patch 5%) 1 patch QAM TD 02/12/18 08:00 03/14/18 07:59 02/14/18 08:10 1 PATCH Miscellaneous (Remove Lidoderm Patch) 1 ea DAILY@21 N/A 02/11/18 21:00 03/13/18 20:59 02/13/18 20:43 1 EA Tramadol HCl (Ultram Tab) 25 mg Q12H PO 02/11/18 18:30 03/02/18 00:29 02/14/18 08:08 25 MG Cyclobenzaprine HCl (Flexeril Tab) 5 mg TID PO 02/13/18 14:00 03/15/18 13:59 02/14/18 08:09 5 MG Metoprolol Tartrate (Lopressor Tab) 25 mg Q8 PO 02/13/18 22:00 03/15/18 21:59 02/14/18 08:15 25 MG Sodium Chloride 1,000 ml @ 60 mls/hr [id number] IV 02/14/18 10:30 03/16/18 10:29 Amlodipine Besylate (Norvasc Tab) 2.5 mg HS PO 02/14/18 21:00 03/02/18 20:59
[2018-02-14] MEDS: SODIUM CHLORIDE 0.9% 1000ML 1,000 ML IV SCH (11:44)
[2018-02-14] MEDS ORDERED: TRAMADOL HCL 50 MG TAB PO PRN (11:45)
[2018-02-14 15:03] VITALS: BP 131/84; PULSE 78; TEMP 36.8; O2SAT 92
[2018-02-14 20:48] VITALS: BP 131/64; PULSE 92; TEMP 36.6; O2SAT 92
[2018-02-14] MEDS ORDERED: AMLODIPINE BESYLATE 5 MG TAB PO SCH (21:00)
[2018-02-14] MEDS: FAMOTIDINE 20 MG TAB PO SCH (21:00)
[2018-02-15] MEDS: SODIUM CHLORIDE 0.9% 1000ML 1,000 ML IV SCH ×2 (01:18→17:48)
[2018-02-15] MEDS: METOPROLOL TARTRATE 25 MG TAB PO SCH ×3 (05:12→20:42)
[2018-02-15 07:07] LABS: ALBUMIN 2.2 gm/dl (3.4-5.0); CALCIUM 8.6 mg/dl (8.5-10.1); CREATININE 3.42 mg/dl (0.60-1.40); POTASSIUM 5.2 mmol/L (3.5-5.1)
[2018-02-15 07:10] LABS: TOTAL PROTEIN 6.1 gm/dl (6.4-8.2)
[2018-02-15 08:00] VITALS: BP 113/56; PULSE 96; TEMP 36.6; O2SAT 91
[2018-02-15] MEDS: MIRABEGRON ER 25 MG TAB PO SCH (08:00)
[2018-02-15] MEDS: ASPIRIN 81 MG ECTAB PO SCH (08:00)
[2018-02-15] MEDS: FLUTICASONE PROPIONATE NA SPR 16 GM BTL SCH ×2 (08:00→20:41)
[2018-02-15] MEDS: COLESTIPOL HCL 1 GM TAB PO SCH ×2 (08:00→22:25)
[2018-02-15] MEDS: LIDODERM (LIDOCAINE) PATCH 5% TD SCH (08:00)
[2018-02-15] MEDS: SODIUM CHLORIDE 0.65% NA SOLN 45 ML (OCEAN) SCH ×3 (08:00→20:41)
[2018-02-15] MEDS: CYCLOBENZAPRINE HCL 5 MG TAB PO SCH ×3 (08:00→20:42)
--- NOTE | 2018-02-15 09:11 | Progress Note ---
Medicine Progress Note Date & Time of Visit: February 15, 2018 at 09:11. Subjective seen resting in bed sleeping but more easily awakened than yesterday appears weak has some back pain denies shortness of breath denies other symptoms Objective Last 8 Hrs Date Time Temp Pulse Resp B/P (MAP) Pulse Ox O2 Delivery O2 Flow Rate FiO2 02/15/18 08:00 36.6 96 20 113/56 (75) 91 Room Air Physical Exam: General- not in distress, no acc muscle use Neck- no JVD Lungs- clear breath sounds bilaterally, no rales/wheezes Heart- regular rhythm; no murmur, normal rate Abdomen- normal bowel sounds, soft, nontender,non distended Extremities-mild lower leg edema, no calf tenderness, warmth, erythema Neuro- drowsy Skin- warm & dry Laboratory Results: Last 24 Hours Test 02/15/18 06:19 Sodium Level 140 mmol/L Potassium Level 5.2 mmol/L Chloride Level 114 mmol/L Carbon Dioxide Level 16 mmol/L Anion Gap 10.0 mmol/L Blood Urea Nitrogen 74 mg/dl Creatinine 3.42 mg/dl Est Creatinine Clear Calc Drug Dose 19.0 ml/min Estimated GFR () 18.0 Estimated GFR (Non- 15.6 BUN/Creatinine Ratio 21.6 Random Glucose 78 mg/dl Calcium Level 8.6 mg/dl Total Bilirubin 1.0 mg/dl Aspartate Amino Transf (AST/SGOT) 171 U/L Alanine Aminotransferase (ALT/SGPT) 31 U/L Alkaline Phosphatase 210 U/L Total Protein 6.1 gm/dl Albumin 2.2 gm/dl Globulin 3.9 gm/dl Albumin/Globulin Ratio 0.6 Assessment & Plan 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 will consult Palliative Care when they become available on Friday -- if patient develops respiratory distress, start with low dose Morphine 2mg IV q4h then titrate accordingly -- added PRN Ofirmev IV trying to avoid patient's Tramadol to avoid lethargy- per family request ACUTE RENAL FAILURE ON CKD 3 likely Prerenal patient has poor oral intake trial of IV fluids started held Lisinopril -- crea worsening Renal US: pending -- continue to monitor RECURRENT DIARRHEA treated with abx for Diverticulitis continue Colestipol UTI, Pseudomonas s/p antibiotics PROSTATE CANCER chemotherapy- Becalutamide has been discontinued CAD status post CABG,s/p Stent continue Metoprolol to avoid tachycardia HYPERTENSION hold Lisinopril due to acute renal failure hold Amlodipine to avoid hypotension continue Metoprolol DM2, diet controlled, well controlled DVT prophylaxis Lovenox discontinued in light of acute renal failure Disposition pending Current Inpatient Medications: Current Inpatient Medications Medications (Trade) Dose Ordered Sig/Ena Route Start Time Stop Time Status Last Admin Dose Admin Dextrose (Dextrose 50% 50ML Syringe) 25-50ML OF 50% DW IV FOR... UD PRN IV 01/31/18 00:30 03/02/18 00:29 Prochlorperazine Edisylate 5 mg/ Syringe 5 ml @ 5 mls/min Q6H PRN IV 01/31/18 00:30 03/02/18 00:29 Sodium Chloride ([place] Nasal [place]) 2 sprays TID NA 01/31/18 08:00 03/02/18 08:59 02/14/18 08:11 2 SPRAYS Famotidine (Pepcid Tab) 40 mg HS PO 01/31/18 21:00 03/02/18 20:59 02/12/18 20:21 40 MG Mirabegron (Myrbetriq Er) 50 mg DAILY PO 01/31/18 08:00 03/02/18 08:59 02/13/18 08:07 50 MG Miscellaneous (Iv Fluids Completed) 1 ea PRN PRN N/A 01/31/18 04:15 01/31/19 04:14 Miconazole Nitrate (Desenex Powder) 1 appln PRN PRN EXT 01/31/18 12:15 03/02/18 12:14 02/12/18 13:13 1 APPLN Acetaminophen (Tylenol Tab) 1,000 mg Q6H PRN PO 02/03/18 11:00 03/05/18 10:59 Aspirin (Ecotrin Tab) 81 mg QAM PO 02/04/18 08:00 03/06/18 07:59 02/13/18 08:07 81 MG Fluticasone Propionate (Flonase Nasal [place]) 2 sprays BID NA 02/05/18 20:00 03/07/18 19:59 02/14/18 08:11 2 SPRAYS Colestipol HCl (Colestid Tab) 1 gm BID PO 02/05/18 20:00 03/07/18 19:59 02/13/18 08:07 1 GM Loperamide HCl (Imodium Cap) 2 mg Q6H PRN PO 02/08/18 14:00 03/02/18 19:44 02/10/18 22:23 2 MG Lidocaine (Lidoderm Patch 5%) 1 patch QAM TD 02/12/18 08:00 03/14/18 07:59 02/14/18 08:10 1 PATCH Miscellaneous (Remove Lidoderm Patch) 1 ea DAILY@21 N/A 02/11/18 21:00 03/13/18 20:59 02/14/18 21:00 1 EA Cyclobenzaprine HCl (Flexeril Tab) 5 mg TID PO 02/13/18 14:00 03/15/18 13:59 02/14/18 08:09 5 MG Metoprolol Tartrate (Lopressor Tab) 25 mg Q8 PO 02/13/18 22:00 03/15/18 21:59 02/14/18 08:15 25 MG Sodium Chloride 1,000 ml @ 60 mls/hr [id number] IV 02/14/18 10:30 03/16/18 10:29 02/15/18 01:18 60 MLS/HR Tramadol HCl (Ultram Tab) 25 mg Q12H PRN PO 02/14/18 11:45 03/02/18 00:29
[2018-02-15] MEDS ORDERED: ACETAMINOPHEN IV 650 MG in EMPTY BAG 0 ML IV PRN (09:15)
[2018-02-15 15:22] VITALS: BP 123/73; PULSE 125; TEMP 36.6; O2SAT 90
[2018-02-15] MEDS ORDERED: SODIUM BICARBONATE IV SCH (18:30)
[2018-02-15] MEDS ORDERED: SODIUM CHLORIDE 0.9% IV SCH (18:30)
--- NOTE | 2018-02-15 19:00 | DIAGNOSTIC IMAGING REPORT ---
(RENAL)RETROPERITON COMP HISTORY: 82 years-old Male r/o obstruction acute bilateral flank pain COMPARISON: CT abdomen and pelvis 01/30/2018, liver ultrasound guided biopsy 02/03/2018 TECHNIQUE: Multiple real-time Images of the kidneys and bladder were obtained assessing grayscale appearance and color flow FINDINGS: Enlarged heterogeneous appearance of the liver redemonstrated. There is apparent sludge within the gallbladder lumen. Right kidney measures 12.3 cm in length. Cyst of the superior pole right kidney measures up to 2.7 cm. This appears unchanged from comparison. No right-sided renal calculi or hydronephrosis. Mild cortical thinning. Mild cortical thinning of the left kidney which measures 10.7 cm in length. Limited evaluation of the left kidney secondary to patient cooperation. No left-sided renal calculi, hydronephrosis or suspicious mass lesions. Decompressed or bladder with Gipson catheter. IMPRESSION: 1. No renal calculi or hydronephrosis. 2. Decompressed urinary bladder with Gipson catheter. 3. Enlarged heterogeneous appearance of the liver redemonstrated. Correlate with liver biopsy results obtained 02/03/2018 The above report was generated using voice recognition software. It may contain grammatical, syntax or spelling errors. Electronically signed by: Gabriel Dennis M.D. 02/15/2018 6:59 PM Dictated Date/Time: 02/15/2018 6:55 PM
[2018-02-15 19:46] VITALS: BP 111/65; PULSE 127; TEMP 36.6; O2SAT 92
[2018-02-15 20:00] VITALS: O2SAT 92
[2018-02-15] MEDS: FAMOTIDINE 20 MG TAB PO SCH (20:42)
[2018-02-15 23:17] VITALS: BP 121/66; PULSE 122; TEMP 36.9; O2SAT 91
[2018-02-16] VITALS: O2SAT 92
[2018-02-16 04:26] VITALS: BP 111/67; PULSE 122; TEMP 36.3; O2SAT 93
[2018-02-16] MEDS: METOPROLOL TARTRATE 25 MG TAB PO SCH ×2 (06:24→14:50)
[2018-02-16 07:16] VITALS: BP 127/73; PULSE 121; TEMP 36.6; O2SAT 91
[2018-02-16] MEDS: FLUTICASONE PROPIONATE NA SPR 16 GM BTL SCH (07:35)
[2018-02-16] MEDS: ASPIRIN 81 MG ECTAB PO SCH (07:36)
[2018-02-16] MEDS: COLESTIPOL HCL 1 GM TAB PO SCH (07:36)
[2018-02-16] MEDS: MIRABEGRON ER 25 MG TAB PO SCH (07:36)
[2018-02-16] MEDS: CYCLOBENZAPRINE HCL 5 MG TAB PO SCH ×2 (07:36→14:50)
[2018-02-16] MEDS: SODIUM CHLORIDE 0.65% NA SOLN 45 ML (OCEAN) SCH ×3 (07:36→20:00)
[2018-02-16] MEDS: LIDODERM (LIDOCAINE) PATCH 5% TD SCH (07:37)
[2018-02-16 08:30] VITALS: O2SAT 91
[2018-02-16] MEDS ORDERED: SODIUM CHLORIDE 0.9% 1000ML 1,000 ML IV SCH (12:15)
--- NOTE | 2018-02-16 13:15 | Palliative Care Consultation ---
Consultation Date of Consultation: February 16, 2018. Requesting Physician: Dr. Lopez Attending Physician: Dr. Lopez Reason for Consultation: GOALS OF CARE History of Present Illness This is an 82 year-old man who was admitted to the hospital from home and has been admitted to the hospital for the past 3 weeks for which he presented with diarrhea. He has been receiving chemotherapy for stage 4 prostate CA and during this admission CT scans revealed liver and lung lesions. A biopsy was obtained and he has been diagnosed with small cell carcinoma with the lung lesion as the primary lesion. Hematology/oncology has evaluated this patient and palliative treatments were offered, but declined by the patient and family. Prior to this admission he was fully independent and living at his home with his , Constanza of 57 years. There has been a significant functional decline over the past 72 hours as his renal function has progressively worsened (02/14/18 BUN 64 Creatinine 2.89 --> 02/15/18 BUN 74 Creatinine 3.42) Additionally, his K+ has risen to 5.2. I met extensively with the family, including patient, son, , patient sister and brother in law. One son, Braydon, was not in attendance, but will be coming to the hospital at 1545 for further discussion. COMFORT measures were discussed and the family has requested the patient receive IV fluids for hydration. I did explain that, while hydration is important, at the active dying stage, persons do not require hydration or food - that this is expected and part of the natural dying process. I discussed that with the worsening kidney function that the patient would not have anywhere for the fluid to 'go' aside from the lungs or skin (third spacing). I explained what signs and symptoms to expect (mouth- breathing, increased secretions, apneic breathing) throughout the dying process. I answered all of the patients questions - the son was texting with Braydon letting him know what we were discussing, but he would like to be present to discuss further. Additionally, I did set the expectation that if the patient did not continue to decline, we would discuss transferring to a nursing facility. We discussed stopping all medications that were not related to comfort - all family on board with doing so - will discuss further with Braydon when he arrives this afternoon. Thank you kindly for this consult - we are happy to be involved with this patient's care and family transition to comfort. Social History Smoking Status: Former Smoker History of Alcohol Use: No Marital Status: Housing Status: lives with family Occupation Status: retired Review of Systems Pt stated that he does not have any pain - No other review of systems discussed - patient frail and weak Allergies Coded Allergies: Ciprofloxacin (Verified Allergy, Unknown, CHEST PAIN, 09/11/16) Clavulanic Acid (Verified Allergy, Unknown, 0, 01/31/18) Iodine (Verified Allergy, Unknown, 0, 01/31/18) Quinolones (Verified Allergy, Unknown, CHEST PAIN, 09/11/16) Sulfa Drugs (Verified Allergy, Unknown, BREAKS OUT, 09/11/16) Terazosin (Verified Allergy, Unknown, UNKNOWN, 09/11/16) Medications Current Inpatient Medications Medications (Trade) Dose Ordered Sig/Ena Route Start Time Stop Time Status Last Admin Dose Admin Dextrose (Dextrose 50% 50ML Syringe) 25-50ML OF 50% DW IV FOR... UD PRN IV 01/31/18 00:30 03/02/18 00:29 Prochlorperazine Edisylate 5 mg/ Syringe 5 ml @ 5 mls/min Q6H PRN IV 01/31/18 00:30 03/02/18 00:29 Sodium Chloride ([place] Nasal [place]) 2 sprays TID NA 01/31/18 08:00 03/02/18 08:59 02/16/18 07:36 2 SPRAYS Famotidine (Pepcid Tab) 40 mg HS PO 01/31/18 21:00 03/02/18 20:59 02/15/18 20:42 40 MG Mirabegron (Myrbetriq Er) 50 mg DAILY PO 01/31/18 08:00 03/02/18 08:59 02/16/18 07:36 50 MG Miscellaneous (Iv Fluids Completed) 1 ea PRN PRN N/A 01/31/18 04:15 01/31/19 04:14 Miconazole Nitrate (Desenex Powder) 1 appln PRN PRN EXT 01/31/18 12:15 03/02/18 12:14 02/12/18 13:13 1 APPLN Acetaminophen (Tylenol Tab) 1,000 mg Q6H PRN PO 02/03/18 11:00 03/05/18 10:59 Aspirin (Ecotrin Tab) 81 mg QAM PO 02/04/18 08:00 03/06/18 07:59 02/16/18 07:36 81 MG Fluticasone Propionate (Flonase Nasal [place]) 2 sprays BID NA 02/05/18 20:00 03/07/18 19:59 02/16/18 07:35 2 SPRAYS Colestipol HCl (Colestid Tab) 1 gm BID PO 02/05/18 20:00 03/07/18 19:59 02/16/18 07:36 1 GM Loperamide HCl (Imodium Cap) 2 mg Q6H PRN PO 02/08/18 14:00 03/02/18 19:44 02/10/18 22:23 2 MG Lidocaine (Lidoderm Patch 5%) 1 patch QAM TD 02/12/18 08:00 03/14/18 07:59 02/16/18 07:37 1 PATCH Miscellaneous (Remove Lidoderm Patch) 1 ea DAILY@21 N/A 02/11/18 21:00 03/13/18 20:59 02/14/18 21:00 1 EA Cyclobenzaprine HCl (Flexeril Tab) 5 mg TID PO 02/13/18 14:00 03/15/18 13:59 02/16/18 07:36 5 MG Metoprolol Tartrate (Lopressor Tab) 25 mg Q8 PO 02/13/18 22:00 03/15/18 21:59 02/16/18 06:24 25 MG Tramadol HCl (Ultram Tab) 25 mg Q12H PRN PO 02/14/18 11:45 03/02/18 00:29 Acetaminophen 650 mg/Empty Bag 65 ml @ 260 mls/hr Q8H PRN IV 02/15/18 09:15 03/17/18 09:14 02/15/18 10:27 260 MLS/HR Sodium Chloride 1,000 ml @ 60 mls/hr [id number] IV 02/16/18 12:15 03/18/18 12:14 02/16/18 12:12 60 MLS/HR Physical Exam Date Time Temp Pulse Resp B/P (MAP) Pulse Ox O2 Delivery O2 Flow Rate FiO2 02/16/18 08:30 91 Room Air 02/16/18 07:16 36.6 121 18 127/73 (91) 91 Room Air 02/16/18 04:26 36.3 122 18 111/67 (82) 93 Room Air 02/16/18 00:00 92 Room Air 02/15/18 23:17 36.9 122 20 121/66 (84) 91 Room Air 02/15/18 20:00 92 Room Air 02/15/18 19:46 36.6 127 18 111/65 (80) 92 Room Air 02/15/18 15:22 36.6 125 18 123/73 (90) 90 Room Air 02/15/18 15:00 Room Air General Appearance: no apparent distress Neck: no adenopathy, thyroid normal, no JVD Respiratory: no respiratory distress, no accessory muscle use, + rales Cardiovascular: regular rate, rhythm, + pertinent finding (trace edema in B/L LE) Abdomen: normal bowel sounds, non tender, soft, + pertinent finding Neurologic/Psychiatric: + pertinent finding (Patient answered questions appropriately - he knows he is in the hospital and dying. Unsure if he understands the complexity of the disease process) Skin: no rash Assessment & Plan Palliative Performance Scale: 10 % Palliative Care Encounter Goals of Care Prostate CA Lung CA with liver mets ESRD Palliative Care Recommendations: -Patient's son, Braydon, will be coming to the hospital at 345. Plan to discuss stopping all medications and IV fluids - transition to full comfort care. -At that time, I plan to fill out a POLST with the family and patient (if able) -Scopalamine patch to be placed transdermally Q 72 hours for secretions -Roxanol 10 mg/mL. 5 mg po Q1 PRN for comfort -Atropine gtts 1% 4gtts Q1 PRN secretions -Bereavement tray via dietary for the family -Continue to offer support to the family throughout this process
[2018-02-16 16:22] VITALS: BP 121/67; PULSE 92; TEMP 36.5; O2SAT 92
[2018-02-16 16:30] VITALS: O2SAT 92
[2018-02-16] MEDS ORDERED: MoRPHine SULFATE 5 MG/0.25 ML UDP PO PRN (17:30)
[2018-02-16] MEDS ORDERED: ATROPINE SULFATE 1% OP SOLN 5 ML BTL SL PRN (17:30)
[2018-02-16] MEDS ORDERED: SCOPOLAMINE 1.5 MG TDSY TD PRN (17:30)
--- NOTE | 2018-02-17 06:26 | Progress Note ---
Medicine Progress Note Date & Time of Visit: February 17, 2018 at 06:21. Subjective delayed entry date of service 02/16/18 seen with family visiting patient more alert than yesterday states he feels fine, denies any pain/discomfort no shortness of breath no other symptoms stated by patient and family Objective Last 8 Hrs Date Time Temp Pulse Resp B/P (MAP) Pulse Ox O2 Delivery O2 Flow Rate FiO2 02/17/18 00:00 Room Air Physical Exam: General- more alert, appears weak, not in distress, no acc muscle use Neck- no JVD Lungs- clear breath sounds bilaterally Heart- regular rhythm; no murmur, normal rate Abdomen- normal bowel sounds, soft, nontender,non distended Extremities-mild lower leg edema, no calf tenderness, warmth, erythema Neuro- drowsy Skin- warm & dry Assessment & Plan 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 consulted Palliative Care -- patient to be transitioned to comfort measures today- patient and family agrees medications except for comfort will be discontinued IV fluids will be discontinued - patient appears comfortable overall ACUTE RENAL FAILURE ON CKD 3 likely Prerenal patient has poor oral intake trial of IV fluids given held Lisinopril -- crea worsening Renal US: no signs of obstruction -- lab draws discontinued RECURRENT DIARRHEA treated with abx for Diverticulitis given Colestipol UTI, Pseudomonas s/p antibiotics PROSTATE CANCER chemotherapy- Becalutamide has been discontinued CAD status post CABG,s/p Stent HYPERTENSION meds discontinued DM2, diet controlled DVT prophylaxis Lovenox discontinued in light of acute renal failure Disposition continue hospital observation patient care discussed with patient's son Arnold at length he is comfortable and agreeable with plan of care all questions answered Current Inpatient Medications: Current Inpatient Medications Medications (Trade) Dose Ordered Sig/Ena Route Start Time Stop Time Status Last Admin Dose Admin Prochlorperazine Edisylate 5 mg/ Syringe 5 ml @ 5 mls/min Q6H PRN IV 01/31/18 00:30 03/02/18 00:29 Sodium Chloride ([place] Nasal [place]) 2 sprays TID NA 01/31/18 08:00 03/02/18 08:59 02/16/18 14:50 2 SPRAYS Acetaminophen (Tylenol Tab) 1,000 mg Q6H PRN PO 02/03/18 11:00 03/05/18 10:59 Loperamide HCl (Imodium Cap) 2 mg Q6H PRN PO 02/08/18 14:00 03/02/18 19:44 02/10/18 22:23 2 MG Lidocaine (Lidoderm Patch 5%) 1 patch QAM TD 02/12/18 08:00 03/14/18 07:59 02/16/18 07:37 1 PATCH Miscellaneous (Remove Lidoderm Patch) 1 ea DAILY@21 N/A 02/11/18 21:00 03/13/18 20:59 02/14/18 21:00 1 EA Acetaminophen 650 mg/Empty Bag 65 ml @ 260 mls/hr Q8H PRN IV 02/15/18 09:15 03/17/18 09:14 02/15/18 10:27 260 MLS/HR Morphine Sulfate (Roxanol Oral Soln) 5 mg Q1H PRN PO 02/16/18 17:30 03/02/18 17:29 Scopolamine (Transderm-Scop Patch) 1.5 mg Q72H PRN TD 02/16/18 17:30 03/18/18 17:29 Atropine Sulfate (Atropine Sulfate 1% Oph Soln) 2 drops Q2H PRN SL 02/16/18 17:30 03/18/18 17:29 Miscellaneous Information (Pending Order) 1 ea DAILY@10 N/A 02/17/18 10:00 03/19/18 09:59
[2018-02-17] MEDS: LIDODERM (LIDOCAINE) PATCH 5% TD SCH (08:00)
[2018-02-17] MEDS: SODIUM CHLORIDE 0.65% NA SOLN 45 ML (OCEAN) SCH ×2 (08:00→13:39)
[2018-02-17] MEDS ORDERED: ONDANSETRON INJ 2 MG/ML 2 ML VIAL IV PRN (09:30)
--- NOTE | 2018-02-17 11:54 | Progress Note ---
Progress Note Date of Service February 17, 2018. Progress Note Patient is actively dying and no longer wishes to received aggressive / acute care. Palliative Care consulted. Referral made to [facility]. Meets criteria for [facility] hospice care. Full note to follow. .
--- NOTE | 2018-02-17 11:55 | Progress Note ---
Medicine Progress Note Date & Time of Visit: February 17, 2018 at 11:45 . Subjective Weaker. Poor oral intake. Complains of discomfort in his arms and perineal area. No fever. Several episodes of loose stools yesterday. More confused. Patient and family ready for transition to hospice care. . Objective Last 8 Hrs Date Time Temp Pulse Resp B/P (MAP) Pulse Ox O2 Delivery O2 Flow Rate FiO2 02/17/18 08:00 Room Air Physical Exam: General- lying in bed, no acute distress Lungs- clear to auscultation; no respiratory distress Cardiovascular- RRR with ectopy; no murmur or gallop appreciated; no JVD; 2+ pretibial edema Abdomen- + bowel sounds, soft, nontender - Gipson cath Extremities- no cyanosis; no calf tenderness; waffle boots applied Neuro- somnolent Skin- warm & dry . Assessment & Plan METASTATIC SMALL CELL CARCINOMA Liver and lung lesions noted on CT imaging; worrisome for metastatic disease. 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 Bone scan negative for metastatic disease. 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 Medical Oncology was consulted and palliative chemotherapy was discussed. Patient opted not to pursue chemotherapy or other aggressive treatments. DIARRHEA Presented with several weeks of diarrhea. Stool C. difficile PCR negative. Stool culture negative. Colonoscopy demonstrated sigmoid diverticulitis. Management of diverticulitis as discussed below. DIVERTICULITIS Colonoscopy revealed diverticulitis in the sigmoid colon. Allergic to quinolones. Treated with cefepime and metronidazole. UTI (present on admission) Status post Botox injection for hypertonic bladder. UA showed leukocyte esterase, 10-30 WBCs. Urine culture growing Pseudomonas aeruginosa. Allergic to quinolones. Treated with cefepime. ACUTE KIDNEY INJURY Serum creatinine at time of admission was 1.37. Received IV fluids with improvement. Creatinine subsequently tammy to 3.42 on 02/15. Rising creatinine attributed to prerenal azotemia from decreased oral fluid intake. IV fluids discontinued due to change of focus of care to palliative end-of-life care. CARCINOMA PROSTATE PSA = 0.042. Initially continued bicalutamide, but patient now refusing meds. CORONARY ARTERY DISEASE No anginal symptoms. Initially continued aspirin and metoprolol, but patient now refusing meds. HYPERTENSION Initially continued metoprolol and lisinopril, but patient now refusing meds. DIABETES MELLITUS Blood sugars usually well-controlled with dietary management. Hemoglobin A1c 5.6. Blood sugars fluctuated due to acute illness. Received insulin coverage as needed. ANEMIA Hemoglobin 11.3 at time of admission. Serum iron 34, TIBC 259, transferrin 200, percent transferrin sat 12, B12 1528, folate 19. No gross GI bleeding. 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 Started iron therapy. RESUSCITATION STATUS Patient has a living will; copy is on the chart. Patient asked about his priorities given his current healthcare status. His son was present for the conversation. Patient indicates that he does not want cardiopulmonary resuscitation or other extraordinary measures attempted at end-of-life. He prefers a comfortable/natural passing. Code status changed to "level 5" (DNR). VTE PROPHYLAXIS Received SQ enoxaparin. DISPOSITION Progressive weakness. Patient and family ready for transition to hospice care. Home and custodial options assessed. Best option at this time is inpatient hospice care. Seen by Palliative Care Medicine and [facility]. Arrangements being made for transfer from acute care to inpatient hospice. . Current Inpatient Medications: Current Inpatient Medications Medications (Trade) Dose Ordered Sig/Ena Route Start Time Stop Time Status Last Admin Dose Admin Sodium Chloride ([place] Nasal [place]) 2 sprays TID NA 01/31/18 08:00 03/02/18 08:59 02/16/18 14:50 2 SPRAYS Acetaminophen (Tylenol Tab) 1,000 mg Q6H PRN PO 02/03/18 11:00 03/05/18 10:59 Loperamide HCl (Imodium Cap) 2 mg Q6H PRN PO 02/08/18 14:00 03/02/18 19:44 02/10/18 22:23 2 MG Lidocaine (Lidoderm Patch 5%) 1 patch QAM TD 02/12/18 08:00 03/14/18 07:59 02/16/18 07:37 1 PATCH Miscellaneous (Remove Lidoderm Patch) 1 ea DAILY@21 N/A 02/11/18 21:00 03/13/18 20:59 02/14/18 21:00 1 EA Acetaminophen 650 mg/Empty Bag 65 ml @ 260 mls/hr Q8H PRN IV 02/15/18 09:15 03/17/18 09:14 02/15/18 10:27 260 MLS/HR Morphine Sulfate (Roxanol Oral Soln) 5 mg Q1H PRN PO 02/16/18 17:30 03/02/18 17:29 Scopolamine (Transderm-Scop Patch) 1.5 mg Q72H PRN TD 02/16/18 17:30 03/18/18 17:29 Atropine Sulfate (Atropine Sulfate 1% Oph Soln) 2 drops Q2H PRN SL 02/16/18 17:30 03/18/18 17:29 Miscellaneous Information (Pending Order) 1 ea DAILY@10 N/A 02/17/18 10:00 03/19/18 09:59 Ondansetron HCl (Zofran Inj) 4 mg Q6H PRN IV 02/17/18 09:30 03/19/18 09:29
--- NOTE | 2018-02-17 11:58 | Discharge Instructions ---
Discharge Instructions Date of Service February 17, 2018. Admission Reason for Admission: weakness, diarrhea . Discharge Discharge Diagnosis / Problem: metastatic small cell carcinoma Discharge Goals Goal(s): Decrease discomfort Activity Recommendations Activity Limitations: as noted below activity as tolerated with assistance . . Instructions / Follow-Up Instructions / Follow-Up Transitioning to inpatient hospice care. . Current Hospital Diet Patient's current hospital diet: Full Liquid Diet Discharge Diet Recommended Diet: Full Liquid Diet Procedures Procedures Performed: COLONOSCOPY, BX, STOOL ASPIRATE Pending Studies Studies pending at discharge: no Laboratory Results Hemoglobin A1c Test 02/06/18 08:52 Range/Units Estimated Average Glucose 114 mg/dl Hemoglobin A1c 5.6 4.5-5.6 % Medical Emergencies . Who to Call and When: Medical Emergencies: If at any time you feel your situation is an emergency, please call 911 immediately. . Non-Emergent Contact Non-Emergency issues call your: Hospital Doctor . . "Provider Documentation" section prepared by Cyril Anderson. .
[2018-02-17 14:03] VITALS: BP 121/67; PULSE 92; TEMP 36.5; O2SAT 92
--- NOTE | 2018-02-17 18:39 | Discharge Summary ---
Discharge Summary Date of Service February 17, 2018. 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 Procedures: CT abdomen + pelvis venous duplex lower extremities CT sinuses nuclear medicine bone scan CT guided liver biopsy MRI brain US kidneys colonoscopy IV meds PT OT . Consultations: GI Medical Oncology Palliative Care Medicine . Admission Information HPI (per Admitting provider): History obtained from the patient, son, and records. Medical history significant for CAD status post CABG/stenting, history of TIA, history of hypertonic bladder, hypertension, chronic anemia (baseline hemoglobin 13), hypertension, DM2, diet controlled, prostate cancer on Casodex, past tobacco abuse. Recent confinement, last 07/2014 for chest pain. Negative dobutamine stress test. Last month, patient had diarrhea symptoms. Patient seen by [facility] outpatient. Stool workup unremarkable. Symptoms improved with Imodium. Colonoscopy to rule out microscopic colitis contemplated if without improvement as per outpatient GI notes. [place] [facility] [place] for Botox injection for hypertonic bladder last on 01/26/2018. Patient received some antibiotics before and after procedure. Increased loose stools, nonbloody, some abdominal cramping, some nausea, no emesis, poor appetite, generalized weakness. Unquantified weight loss over the last several months. No chest pain, no shortness of breath. Both legs noted to be swollen the last few weeks. Patient brought to the Emergency Room. . Physical Exam (per Admitting): VITAL SIGNS: Blood pressure noted to be 140/84, pulse rate 87, RR 18, temperature 36.6, sats 90 on room air. GENERAL: Noted to be comfortable, no acute distress, slightly hard of hearing. SKIN: Pallor, warm. HEENT: Pale palpebral conjunctivae. No ptosis. Dry mucosa. TM retraction bilateral, retained cerumen, no obvious perforation NECK: Supple, nontender. CHEST: Decreased effort. No tenderness. Healed incisional scar. HEART: Regular rate, rhythm, no murmur. ABDOMEN: Some distention, nontender. RECTAL: Intact sphincter, yellow stool, heme negative. EXTREMITIES: Bilateral lower extremity edema, no tenderness. No other gross deformities. NEUROLOGIC: Coherent. No gross focality except for mild hearing impairment. Gait and stance not assessed. . Hospital Course METASTATIC SMALL CELL CARCINOMA Liver and lung lesions noted on CT imaging; worrisome for metastatic disease. 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 Bone scan negative for metastatic disease. Liver biopsy performed 02/04; path demonstrated small cell carcinoma. Medical Oncology was consulted and palliative chemotherapy was discussed. Patient opted not to pursue chemotherapy or other aggressive treatments. Palliative Care Medicine consulted. Transitioned to palliative care. DIARRHEA Presented with several weeks of diarrhea. Stool C. difficile PCR negative. Stool culture negative. Colonoscopy demonstrated sigmoid diverticulitis. Management of diverticulitis as discussed below. DIVERTICULITIS Colonoscopy revealed diverticulitis in the sigmoid colon. Allergic to quinolones. Treated with cefepime and metronidazole. UTI (present on admission) Status post Botox injection for hypertonic bladder. UA showed leukocyte esterase, 10-30 WBCs. Urine culture growing Pseudomonas aeruginosa. Allergic to quinolones. Treated with cefepime. ACUTE KIDNEY INJURY Serum creatinine at time of admission was 1.37. Received IV fluids with improvement. Creatinine subsequently tammy to 3.42 on 02/15. Rising creatinine attributed to prerenal azotemia from decreased oral fluid intake. IV fluids discontinued due to change of focus of care to palliative end-of-life care. CARCINOMA PROSTATE PSA = 0.042. CORONARY ARTERY DISEASE No anginal symptoms. Initially continued aspirin and metoprolol, but patient no longer taking most oral meds due to declining status. HYPERTENSION Initially continued metoprolol and lisinopril, but patient no longer taking most oral meds due to declining status. DIABETES MELLITUS Blood sugars usually well-controlled with dietary management. Hemoglobin A1c 5.6. Blood sugars fluctuated due to acute illness. Received insulin coverage as needed. ANEMIA Hemoglobin 11.3 at time of admission. Serum iron 34, TIBC 259, transferrin 200, percent transferrin sat 12, B12 1528, folate 19. No gross GI bleeding. 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 RESUSCITATION STATUS Patient has a living will; copy is on the chart. Patient asked about his priorities given his current healthcare status. His son was present for the conversation. Patient indicates that he does not want cardiopulmonary resuscitation or other extraordinary measures attempted at end-of-life. He prefers a comfortable/natural passing. Code status changed to "level 5" (DNR). VTE PROPHYLAXIS Received SQ enoxaparin. VTE prophylaxis no longer indicated due to transition to end-of-life care / comfort measures only. DISPOSITION Progressive weakness. Patient and family ready for transition to hospice care. Home and halfway options assessed. Best option at this time is inpatient hospice care. Seen by Palliative Care Medicine and [facility]. Arrangements being made for transfer from acute care to inpatient hospice. . Total time spent on discharge = 45 min. This includes examination of the patient, discharge planning, medication reconciliation, and communication with other providers. . Discharge Instructions N/A . Additional Copies To Ervin Barbosa M.D.
== END 2018-02-17 14:07 | disposition still patient (30) | DRG 392 ==
LOC: C.EDB 19:20 → C.4E 01-31 00:19 → EDBEDREQSVC 01-31 00:36 → ENRESERV 01-31 00:49 → OBSVTOIN 01-31 15:24
PROVIDERS: ADMIT Internal Medicine; ATTEND Hospitalist
PROC: 0DBB8ZX Excision of Ileum, Via Natural or Artificial Opening Endoscopic, Diagnostic (ICD-10-PCS; principal; 2018-02-02 09:13)
PROC: 0DBE8ZX Excision of Large Intestine, Via Natural or Artificial Opening Endoscopic, Diagnostic (ICD-10-PCS; principal; 2018-02-02 09:13)
PROC: 0FB23ZX Excision of Left Lobe Liver, Percutaneous Approach, Diagnostic (ICD-10-PCS; 2018-02-03)
DX: K52.9 Noninfective gastroenteritis and colitis, unspecified (principal); N39.0 Urinary tract infection, site not specified; K57.32 Diverticulitis of large intestine without perforation or abscess without bleeding; C78.00 Secondary malignant neoplasm of unspecified lung; C78.7 Secondary malignant neoplasm of liver and intrahepatic bile duct; N17.9 Acute kidney failure, unspecified; B96.5 Pseudomonas (aeruginosa) (mallei) (pseudomallei) as the cause of diseases classified elsewhere; C61 Malignant neoplasm of prostate; Z51.5 Encounter for palliative care; K57.30 Diverticulosis of large intestine without perforation or abscess without bleeding; D50.9 Iron deficiency anemia, unspecified; I25.10 Atherosclerotic heart disease of native coronary artery without angina pectoris; I10 Essential (primary) hypertension; E11.9 Type 2 diabetes mellitus without complications; M79.89 Other specified soft tissue disorders; R05 Cough; J32.9 Chronic sinusitis, unspecified; N31.8 Other neuromuscular dysfunction of bladder; E78.5 Hyperlipidemia, unspecified; D12.3 Benign neoplasm of transverse colon; Q27.33 Arteriovenous malformation of digestive system vessel; K64.9 Unspecified hemorrhoids; R53.81 Other malaise; M54.9 Dorsalgia, unspecified; Z66 Do not resuscitate; Z86.73 Personal history of transient ischemic attack (TIA), and cerebral infarction without residual deficits; Z95.1 Presence of aortocoronary bypass graft; Z95.5 Presence of coronary angioplasty implant and graft; Z98.890 Other specified postprocedural states; Z87.891 Personal history of nicotine dependence; Z79.899 Other long term (current) drug therapy; Z88.1 Allergy status to other antibiotic agents; Z88.2 Allergy status to sulfonamides; Z88.8 Allergy status to other drugs, medicaments and biological substances; Z82.49 Family history of ischemic heart disease and other diseases of the circulatory system

== ENCOUNTER 2018-02-17 14:09 | Inpatient (IN) | payer OTHER ==
[~2018-02-17] VITALS: Ht 180.3 cm; Wt 95.4 kg
[~2018-02-17 14:09] MED LIST changes: +BICA50TA2 PO; -FLUT0.15; +FOLI5CAP PO; -LISI-725 PO; +LISI40TA PO; -MIRA100T PO; +MIRA1TAB3 PO; +NASAL SPRAY NAE; +NYSO15 TOP; +TRMCR515 TOP; +UNKNOWN ANTIBIOTIC PO
[2018-02-17 14:23] VITALS: Ht 180.3 cm; Wt 95.4 kg
[2018-02-17] MEDS ORDERED: HALOPERIDOL LACTATE 5 MG/ML 1 ML VIAL IV PRN (14:30)
[2018-02-17] MEDS ORDERED: MoRPHine SULFATE 4 MG/ML 1 ML CARP\\VIAL IV PRN (14:30)
[2018-02-17] MEDS ORDERED: ONDANSETRON INJ 2 MG/ML 2 ML VIAL IV PRN (14:30)
[2018-02-17] MEDS ORDERED: ACETAMINOPHEN 325 MG TAB PO PRN (14:30)
[2018-02-17] MEDS ORDERED: ATROPINE SULFATE 1% OP SOLN 2 ML BTL PO PRN (14:30)
[2018-02-17] MEDS ORDERED: ACETAMINOPHEN 650 MG SUPP PR PRN (14:45)
[2018-02-17] MEDS: MoRPHine SULFATE 5 MG/0.25 ML UDP PO PRN ×2 (16:54→23:04)
--- NOTE | 2018-02-17 19:46 | History and Physical ---
History & Physical Date & Time of Service: February 17, 2018 at 14:23 Chief Complaint: metastatic small cell carcinoma . Primary Care Physician: Ervin Barbosa M.D. . History of Present Illness 82 [address]O male followed by Dr. Barbosa. History of ischemic heart disease, hypertension, DM type 2, prostate cancer, and other problems. Presented to [facility] 01/30/18 with progressive weakness and diarrhea. CT imaging demonstrated multiple hepatic and pulmonary lesions worrisome for metastatic disease. Liver biopsy performed on 02/03 demonstrated small cell carcinoma; primary uncertain, but suspected carcinoma of lung. Medical Oncology consulted. Palliative chemotherapy was discussed, but patient opted not to undergo treatments. Condition continued to decline, experiencing progressive weakness, worsening confusion, worsening discomfort, declining renal function. Palliative Care Medicine consulted and referral made to [facility]. Patient unable to be discharge to home due to poor functional status and inadequate support resources at home. Transitioning to inpatient hospice care. . 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 Social History Smoking Status: Former Smoker Marital Status: Housing status: lives with family Occupational Status: retired Immunizations History of Influenza Vaccine: Yes Influenza Vaccine Date: Aug 16, 2011 History of Tetanus Vaccine?: Yes History of Pneumococcal: Yes History of Hepatitis B Vaccine: No Allergies Coded Allergies: Ciprofloxacin (Verified Allergy, Unknown, CHEST PAIN, 09/11/16) Clavulanic Acid (Verified Allergy, Unknown, 0, 01/31/18) Iodine (Verified Allergy, Unknown, 0, 01/31/18) Quinolones (Verified Allergy, Unknown, CHEST PAIN, 09/11/16) Sulfa Drugs (Verified Allergy, Unknown, BREAKS OUT, 09/11/16) Terazosin (Verified Allergy, Unknown, UNKNOWN, 09/11/16) Home Medications Scheduled Amlodipine (Norvasc), 10 MG PO HS Atorvastatin (Lipitor), 20 MG PO HS Bicalutamide (Casodex), 150 MG PO DAILY Cholecalciferol (Vitamin D3), 1 TAB PO QAM Famotidine (Pepcid), 2 TAB PO HS Folic Acid (Folic Acid), 1 TAB PO DAILY Lisinopril (Prinivil), 40 MG PO DAILY Metoprolol Succ (Toprol Xl) (Toprol-Xl ), 100 MG PO QAM Mirabegron (Myrbetriq Er), 50 MG PO DAILY Multivitamin (Multivitamin), 1 TAB PO QAM Nystatin (Nystatin), 1 APPLN TOP 2-3DAILY Triamcinolone Acet (Triamcinolone Acetonide), 1 APPLN TOP 2-3DAILY [Nasal Galliano], 2 SPRAYS TANIA UD [Unknown Antibiotic], 1 TAB PO BID Scheduled PRN Acetaminophen (Tylenol), 650 MG PO HS PRN for Pain or Fever Review of Systems Unable to obtain due to patient's condition. . Physical Exam General- lying in bed, no acute distress Lungs- clear to auscultation; no respiratory distress Cardiovascular- RRR with ectopy; no murmur or gallop appreciated; no JVD; 2+ pretibial edema Abdomen- + bowel sounds, soft, nontender - Gipson cath Extremities- no cyanosis; no calf tenderness; waffle boots applied Neuro- somnolent Skin- warm & dry . Impression Assessment and Plan METASTATIC SMALL CELL CARCINOMA Liver and lung lesions noted on CT imaging; worrisome for metastatic disease. 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 Bone scan negative for metastatic disease. Liver biopsy performed 02/04; path demonstrated small cell carcinoma. Medical Oncology was consulted and palliative chemotherapy was discussed. Patient opted not to pursue chemotherapy or other aggressive treatments. Palliative Care Medicine consulted. Transitioned to palliative care and enrolled in hospice. Care plan at this time is comfort measures only. CORONARY ARTERY DISEASE No recent anginal symptoms. Patient has not been taking usual meds due to declining status. NTG and/or morphine PRN. DM TYPE 2 Active management not indicated at this time due to terminal illness. VTE PROPHYLAXIS Not indicated due to terminal illness with end-of-life care. RESUSCITATION STATUS DNR per recent discussion with patient. DISPOSITION Anticipated that patient will during this hospital stay. . Advanced Directives Existing Advance Directive: Yes Existing Living Will: Yes Resuscitation Status VTE Prophylaxis Will order VTE Prophylaxis: No Reason for no VTE drug order: Treatment not indicated Reason no Mechanical VTE Order: Treatment not indicated
[2018-02-17] MEDS ORDERED: NITROGLYCERIN 0.4 MG SL PER TAB CHARGE SL PRN (21:00)
[2018-02-18] MEDS: MoRPHine SULFATE 5 MG/0.25 ML UDP PO PRN ×4 (08:15→22:37)
--- NOTE | 2018-02-18 09:50 | Progress Note ---
Medicine Progress Note Date & Time of Visit: February 18, 2018 at 09:40 . Subjective More somnolent. Complaining of perirectal pain. No SOB. No N/V. Ate a little breakfast. Son visiting. . Objective Physical Exam: General- lying in bed, no acute distress Lungs- few basilar rales; no respiratory distress Cardiovascular- RRR with ectopy; no murmur or gallop appreciated; no JVD; 2+ pretibial edema Abdomen- + bowel sounds, soft, nontender - Gipson cath Extremities- no cyanosis; no calf tenderness; waffle boots applied Neuro- somnolent Skin- warm & dry . Assessment & Plan METASTATIC SMALL CELL CARCINOMA Continue palliative measures. CORONARY ARTERY DISEASE No recent anginal symptoms. NTG and/or morphine PRN. DM TYPE 2 Active management not indicated at this time due to terminal illness. VTE PROPHYLAXIS Not indicated due to terminal illness with end-of-life care. RESUSCITATION STATUS DNR per recent discussion with patient. DISPOSITION Anticipated that patient will during this hospital stay. . Current Inpatient Medications: Current Inpatient Medications Medications (Trade) Dose Ordered Sig/Ena Route Start Time Stop Time Status Last Admin Dose Admin Acetaminophen (Tylenol Tab) 650 mg Q4H PRN PO 02/17/18 14:30 03/19/18 14:29 02/17/18 16:00 650 MG Ondansetron HCl (Zofran Inj) 4 mg Q6H PRN IV 02/17/18 14:30 03/19/18 14:29 Morphine Sulfate (Roxanol Oral Soln) 5 mg Q1H PRN PO 02/17/18 14:30 03/03/18 14:29 02/18/18 08:15 5 MG Morphine Sulfate (MoRPHine SULFATE INJ) 1 mg Q30M PRN IV 02/17/18 14:30 03/03/18 14:29 Haloperidol Lactate (Haldol Inj) 0.5 mg Q1H PRN IV 02/17/18 14:30 03/19/18 14:29 Atropine Sulfate (ATROPINE SULFATE 1% Op Soln 2 ML) 2 drops Q6H PRN PO 02/17/18 14:30 03/19/18 14:29 Acetaminophen (Tylenol Supp) 650 mg Q4H PRN MD 02/17/18 14:45 03/19/18 14:44 Nitroglycerin (Nitrostat Tab) 0.4 mg PRN PRN SL 02/17/18 21:00 03/19/18 20:59
[2018-02-18] MEDS ORDERED: FENTANYL 25 MCG/HR TDSY TD SCH (11:00)
[2018-02-18] MEDS ORDERED: CHECK FENTANYL PATCH PLACEMENT SCH (16:00)
[2018-02-18 23:18] VITALS: BP 125/85; PULSE 81; TEMP 36.9; O2SAT 92
[2018-02-19] MEDS: MoRPHine SULFATE 5 MG/0.25 ML UDP PO PRN ×6 (06:02→22:01)
--- NOTE | 2018-02-19 08:11 | Progress Note ---
Medicine Progress Note Date & Time of Visit: February 19, 2018 at 08:00 . Subjective Sleeping most of the time. Intermittent pain, relieved by oral morphine. No N/V. No SOB. Less urine output. Son visiting. . Objective Physical Exam: General- lying in bed, no acute distress Lungs- few basilar rales; no respiratory distress Cardiovascular- RRR with ectopy; no murmur or gallop appreciated; no JVD; 2+ pretibial edema Abdomen- + bowel sounds, soft, nontender - Gipson cath Extremities- no cyanosis; no calf tenderness; waffle boots applied Neuro- somnolent Skin- warm & dry . Assessment & Plan METASTATIC SMALL CELL CARCINOMA Continue palliative measures. CORONARY ARTERY DISEASE No recent anginal symptoms. NTG and/or morphine PRN. DM TYPE 2 Active management not indicated at this time due to terminal illness. VTE PROPHYLAXIS Not indicated due to terminal illness with end-of-life care. RESUSCITATION STATUS DNR per recent discussion with patient. DISPOSITION Anticipated that patient will during this hospital stay. Son at bedside and given update. . Current Inpatient Medications: Current Inpatient Medications Medications (Trade) Dose Ordered Sig/Ena Route Start Time Stop Time Status Last Admin Dose Admin Acetaminophen (Tylenol Tab) 650 mg Q4H PRN PO 02/17/18 14:30 03/19/18 14:29 02/17/18 16:00 650 MG Ondansetron HCl (Zofran Inj) 4 mg Q6H PRN IV 02/17/18 14:30 03/19/18 14:29 Morphine Sulfate (Roxanol Oral Soln) 5 mg Q1H PRN PO 02/17/18 14:30 03/03/18 14:29 02/19/18 06:02 5 MG Morphine Sulfate (MoRPHine SULFATE INJ) 1 mg Q30M PRN IV 02/17/18 14:30 03/03/18 14:29 Haloperidol Lactate (Haldol Inj) 0.5 mg Q1H PRN IV 02/17/18 14:30 03/19/18 14:29 Acetaminophen (Tylenol Supp) 650 mg Q4H PRN [place] 02/17/18 14:45 03/19/18 14:44 Nitroglycerin (Nitrostat Tab) 0.4 mg PRN PRN SL 02/17/18 21:00 03/19/18 20:59 Atropine Sulfate (ATROPINE SULFATE 1% Op Soln 2 ML) 4 drops Q6H PRN PO 02/18/18 17:00 03/19/18 14:29
[2018-02-19] MEDS: ATROPINE SULFATE 1% OP SOLN 2 ML BTL PO PRN (18:27)
[2018-02-19] MEDS ORDERED: HALOPERIDOL ORAL SOLN 2 MG/ML PO PRN (18:45)
[2018-02-20] MEDS: MoRPHine SULFATE 5 MG/0.25 ML UDP PO PRN ×5 (08:14→21:23)
[2018-02-20 08:30] VITALS: O2SAT 89
[2018-02-20 09:32] VITALS: O2SAT 93
--- NOTE | 2018-02-20 10:10 | Progress Note ---
Medicine Progress Note Date & Time of Visit: February 20, 2018 at 10:09 . Subjective Weak. Minimal oral intake. Intermittent pain relieved by analgesics. Son visiting. . Objective Last 8 Hrs Date Time Temp Pulse Resp B/P (MAP) Pulse Ox O2 Delivery O2 Flow Rate FiO2 02/20/18 09:32 93 Nasal Cannula 2.0 02/20/18 08:30 89 Room Air Physical Exam: General- lying in bed, no acute distress Lungs- few rhonchi; no respiratory distress Cardiovascular- RRR with ectopy; no murmur or gallop appreciated; no JVD; 1+ pretibial edema Abdomen- + bowel sounds, soft, nontender - Gipson cath with some urine output Extremities- no cyanosis; no calf tenderness; waffle boots applied Neuro- somnolent Skin- warm & dry . Assessment & Plan METASTATIC SMALL CELL CARCINOMA Continue palliative measures. CORONARY ARTERY DISEASE No recent anginal symptoms. NTG and/or morphine PRN. DM TYPE 2 Active management not indicated at this time due to terminal illness. VTE PROPHYLAXIS Not indicated due to terminal illness with end-of-life care. RESUSCITATION STATUS DNR per recent discussion with patient. DISPOSITION Anticipated that patient will during this hospital stay. Son Braydon at bedside and given update. . Current Inpatient Medications: Current Inpatient Medications Medications (Trade) Dose Ordered Sig/Ena Route Start Time Stop Time Status Last Admin Dose Admin Acetaminophen (Tylenol Tab) 650 mg Q4H PRN PO 02/17/18 14:30 03/19/18 14:29 02/17/18 16:00 650 MG Ondansetron HCl (Zofran Inj) 4 mg Q6H PRN IV 02/17/18 14:30 03/19/18 14:29 Morphine Sulfate (Roxanol Oral Soln) 5 mg Q1H PRN PO 02/17/18 14:30 03/03/18 14:29 02/20/18 08:14 5 MG Morphine Sulfate (MoRPHine SULFATE INJ) 1 mg Q30M PRN IV 02/17/18 14:30 03/03/18 14:29 Haloperidol Lactate (Haldol Inj) 0.5 mg Q1H PRN IV 02/17/18 14:30 03/19/18 14:29 Acetaminophen (Tylenol Supp) 650 mg Q4H PRN FL 02/17/18 14:45 03/19/18 14:44 Nitroglycerin (Nitrostat Tab) 0.4 mg PRN PRN SL 02/17/18 21:00 03/19/18 20:59 Atropine Sulfate (ATROPINE SULFATE 1% Op Soln 2 ML) 4 drops Q6H PRN PO 02/18/18 17:00 03/19/18 14:29 02/19/18 18:27 4 DROPS Haloperidol (Haldol Oral Soln) 0.5 mg Q1H PRN PO 02/19/18 18:45 03/21/18 18:44 02/19/18 21:00 0.5 MG
[2018-02-20 16:00] VITALS: O2SAT 93
[2018-02-20] MEDS: ATROPINE SULFATE 1% OP SOLN 2 ML BTL PO PRN (16:09)
[2018-02-20] MEDS ORDERED: SCOPOLAMINE 1.5 MG TDSY TD SCH (19:30)
[2018-02-20] MEDS ORDERED: MoRPHine SULFATE 10 MG/0.5 ML UDP PO PRN (19:30)
[2018-02-21] VITALS: O2SAT 93
[2018-02-21] MEDS ORDERED: CHECK SCOPOLAMINE PATCH PLACEMENT SCH
--- NOTE | 2018-02-21 04:23 | Progress Note ---
Progress Note Date of Service February 21, 2018. Progress Note Pt was seen and examined after nurse called to inform pt . Lying in bed with eyes closed Pupils non reactive to light No breath sound and heard sound on auscultation No palpable pulse No movement in extremities with light painful stimuli Time of 3:30 AM Nurse called and informed family member. I
[2018-02-21] MEDS ORDERED: FENTANYL PATCH REMOVE & WASTE SCH (10:59)
--- NOTE | 2018-02-21 19:03 | Discharge Summary ---
Discharge Summary Date of Service February 21, 2018. 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 Admission Information HPI (per Admitting provider): 82 YO male followed by Dr. Barbosa. History of ischemic heart disease, hypertension, DM type 2, prostate cancer, and other problems. Presented to [facility] 01/30/18 with progressive weakness and diarrhea. CT imaging demonstrated multiple hepatic and pulmonary lesions worrisome for metastatic disease. Liver biopsy performed on 02/03 demonstrated small cell carcinoma; primary uncertain, but suspected carcinoma of lung. Medical Oncology consulted. Palliative chemotherapy was discussed, but patient opted not to undergo treatments. Condition continued to decline, experiencing progressive weakness, worsening confusion, worsening discomfort, declining renal function. Palliative Care Medicine consulted and referral made to [facility]. Patient unable to be discharge to home due to poor functional status and inadequate support resources at home. Transitioning to inpatient hospice care. . Physical Exam (per Admitting): General- lying in bed, no acute distress Lungs- clear to auscultation; no respiratory distress Cardiovascular- RRR with ectopy; no murmur or gallop appreciated; no JVD; 2+ pretibial edema Abdomen- + bowel sounds, soft, nontender - Gipson cath Extremities- no cyanosis; no calf tenderness; waffle boots applied Neuro- somnolent Skin- warm & dry . Hospital Course 82-year-old male with recently diagnosed small cell carcinoma with metastases to liver and lungs. Admitted for inpatient hospice care. Received palliative medications as necessary. 02/21/2018 at 03:30. Cause of : metastatic small cell carcinoma . Discharge Instructions N/A .
== END 2018-02-21 03:30 | disposition expired | DRG 951 ==
LOC: C.4E 14:09
PROVIDERS: ADMIT Hospitalist; ATTEND Hospitalist
DX: Z51.5 Encounter for palliative care (principal); C61 Malignant neoplasm of prostate; C34.90 Malignant neoplasm of unspecified part of unspecified bronchus or lung; C78.7 Secondary malignant neoplasm of liver and intrahepatic bile duct; I25.10 Atherosclerotic heart disease of native coronary artery without angina pectoris; I10 Essential (primary) hypertension; E11.9 Type 2 diabetes mellitus without complications; K21.9 Gastro-esophageal reflux disease without esophagitis; Z95.1 Presence of aortocoronary bypass graft; Z88.1 Allergy status to other antibiotic agents; Z88.8 Allergy status to other drugs, medicaments and biological substances; Z88.2 Allergy status to sulfonamides; Z87.891 Personal history of nicotine dependence